=== PATIENT | female | born 1960 | race Caucasian/White ===

== ENCOUNTER 2020-12-15 11:00 | Outpatient (RCR) | payer OTHER, SELFPAY ==
--- NOTE | 2020-09-27 16:21 | PTOPEVAL ---
PHYSICAL THERAPY EVALUATION AND PLAN OF CARE 09-27-20 Thank you for referring Lakshmi Gooden to [facility].? She is scheduled to be seen for therapy? 3 x/week for 4 weeks. Please review, sign, date and return this plan of care CODY. I agree with and certify that the following plan of care is medically necessary. Referring Physician Date Attending Provider: Dr. Bárbara Mcmlulen Ma *PT Outpatient Evaluation Document 09/27/20 15:00 NYDIA (Rec: 09/27/20 16:21 NYDIA [id number]) Past Medical History Source of Past Medical History Patient Neurological History Hx Migraine Yes: as teenager; not had for 30 years Cardiovascular History Hx Hypercholesterolemia Yes: meds Hx Hypertension Yes: meds Respiratory History Hx Respiratory Disorders No Significant History Gastrointestinal History Hx Gastrointestinal Disorders No Significant History Genitourinary History Hx Genitourinary Disorders No Significant History Musculoskeletal History Hx Musculoskeletal Disorders No Significant History Endocrine History Hx Endocrine Disorders No Significant History HEENT History Hx HEENT Disorders No Significant History Integumentary History Hx Eczema Yes Reproductive History Hx Section Yes: 2x Evaluation Information Problem Diagnosis L UE lymphedema Onset July 2020 Prior Level of Function Activity Level (Last 3 Months) 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 Hand Dominance Right Activity of Daily Living Ability Independent Indoor/Home Mobility Independent Community Mobility Independent Stairs Ability Independent Functional Cognition (Planning, Shopping Independent , Taking Medications) Cooking Yes Cleaning Yes Laundry Yes Shopping Yes Driving Yes Home Setting Living Situation With Spouse Comments Additional Prior Level of Function and child do heavy Comments lifting and cleaning; no restrictions from dr; told to increase activity as tolerated- no limitations; Pain Assessment Timing of Pain Assessment Timing of Pain Assessment Assessment Pain Scale Pain Scale Used Numeric (1 - 10) Self Report Pain Assessment Left Shoulder(s) Reported Pain Level 2 Pain Description Tightness,Tingling Radicular Pain Location muscle spasms throughout torso - stopped about one month ago; Pain Frequency
--- NOTE | 2020-10-08 07:58 | PCPTNOTE ---
Pt called and cancelled for today's appt. Called pt to check on her. Adilene stated she is pretty sure he has covid. she is has a headache and feels she has a cold. they both were tested yesterday . Sunday's appt was also cancelled due to holiday and not having anyway to get her results . Instructed pt to take off her wraps and try to perform self MLD if she is able. We will resume therapy when she gets her results.
--- NOTE | 2020-10-15 11:46 | PCPTNOTE ---
Called pt to check on her condition. pt stated that she was feeling better and will probably be able to attend Sunday's treatment.
--- NOTE | 2020-10-25 09:59 | PTOPEVAL ---
PHYSICAL THERAPY REEVALUATION AND UPDATED PLAN OF CARE 10-25-20 Refer to the clinical summary below, for her status with today's reassessment, compared to the initial evaluation. Treatment is to continue 3x/week for 3 weeks, for her to receive and be instructed on the compression sleeve and glove and further decrease of lymphedema over lateral and anterior trunk. Thank you for referring Lakshmi Gooden to [facility].? Please review, sign, date and return this updated plan of care [facility]. I agree with and certify that the following plan of care is medically necessary. Referring Physician Date Attending Provider: Dr. Bárbara Mcmullen Ma Document 10/25/20 09:13 NYDIA (Rec: 10/25/20 09:59 NYDIA [id number]) Assessment Status Re-evaluation Subjective Information Adilene reports: arm is good, Query Text:As Reported By Patient/ pleased with therapy; have Family been moving my arm and shoulder; stomach is not as bloated; some tightness over L scar and tight at times; awaiting garment; have home compression pump; Pain Assessment Timing of Pain Assessment Timing of Pain Assessment Assessment Pain Scale Pain Scale Used Numeric (1 - 10) Self Report Pain Assessment Left Shoulder(s) Reported Pain Level 2 Pain Frequency Chronic Other Pain Description stiff, sore Lowest Pain Intensity 0 Greatest Pain Intensity 3 Pain Score Pain Score 2: Self Report Additional Pain Score Comments can lie on L side about 1 hour ; Interventions Used Interventions Used By Clinicians Education,Exercise Upper Extremity Range of Motion Scapular/ Shoulder Range of Motion Left Shoulder Flexion - Active 110 Shoulder Abduction - Active 105 Shoulder Lateral Rotation - Active palm behind ear Query Text:Reach Behind the Head Upper Extremity Muscle Strength Testing General Upper Extremity Strength Gross Upper Extremity Strength Comments standing L shoulder with 2# hand wt: flexion x 15 reps; abduction x 10 reps Lymphedema Evaluation Skin Inspection Location Left Upper Extremity,Left Anterior Lower Quadrant,Left Anterior Upper Quadrant,Right Anterior Lower Quadrant,Right Anterior Upper Quadrant Skin Observations Hyperpigmentation,Hyperplasia Tissue Texture Hard Lymphedema Stage II Skin Inspection Comment R axilla pocket of fluid measured in supine: superior/ inf 6 cm and med/lat 5 cm; L UE: no fibrosis over
--- NOTE | 2020-11-03 14:10 | PCPTNOTE ---
Called pt to see if she could come in early and pt sted she had been throwing up all night and had diahrrea. Pt cancelled appt today.
--- NOTE | 2020-11-10 16:18 | PTOPEVAL ---
PHYSICAL THERAPY RE-EVALUATION AND UPDATED PLAN OF CARE 11-10-20 Refer to the clinical summary below for her status at today's reevaluation, compared to the last reeval. Her progress was minimal this time frame, due to being ill and did not have treatment or the compression wraps on her arm for 1 & 1/2 weeks. Continue PT 2-3x/week for 3 weeks. Thank you for referring Lakshmi Gooden to [facility].? Please review, sign, date and return this plan of care CODY. I agree with and certify that the following plan of care is medically necessary. Referring Physician Date Attending Provider: Bárbara Aguila MD Document 11/10/20 13:39 NYDIA (Rec: 11/10/20 14:11 NYDIA [id number]) Assessment Status Re-evaluation Subjective Information Lakshmi reports: arm is doing Query Text:As Reported By Patient/ OK with the wraps; is using Family arm more for home tasks; is pleased that her arm is smaller; has Flexitouch pump at home, they are going to do a demo and educate her when wraps removed from arm; has ordered her compression sleeve , but not here yet; wants to continue PT for her scars and tight tissue; Pain Assessment Timing of Pain Assessment Timing of Pain Assessment Assessment Pain Scale Pain Scale Used Numeric (1 - 10) Self Report Pain Assessment Left Shoulder(s) Reported Pain Level 0 Pain Frequency Acute Other Pain Description heavy arm Lowest Pain Intensity 0 Greatest Pain Intensity 2 Pain Score Pain Score 0: Self Report Upper Extremity Range of Motion General Upper Extremity Range of Motion Gross Upper Extremity Range of Motion L shoulder in standing: Comments flexion 120', abduct 115', ER -reach to back of head, palm to behind ear Upper Extremity Muscle Strength Testing General Upper Extremity Strength Gross Upper Extremity Strength Comments standing R shoulder flexion and abduction with 3# hand wt x 10 reps; Lymphedema Evaluation Skin Inspection Location Left Upper Extremity,Left Anterior Lower Quadrant,Left Anterior Upper Quadrant,Right Anterior Lower Quadrant,Right Anterior Upper Quadrant Tissue Texture Hard Lymphedema Stage II Skin Inspection Comment removed compression wraps L UE ; measured arm and pt washed
--- NOTE | 2020-12-01 13:35 | PTOPEVAL ---
PHYSICAL THERAPY RE-EVALUATION AND UPDATED PLAN OF CARE 12-01-20 Refer to the clinical summary below, for her status today, compared to the last reevaluation. Continue PT treatment 1x/week for 5 weeks. Thank you for referring Lakshmi Gooden to [facility].? Please review, sign, date and return this updated plan of care [facility]. I agree with and certify that the following plan of care is medically necessary. Referring Physician Date Attending Provider: Bárbara Aguila MD *PT Outpatient Re-Evaluation Document 12/01/20 12:36 NYDIA (Rec: 12/01/20 13:35 NYDIA [id number]) Subjective Information Adilene reports: feel like L arm Query Text:As Reported By Patient/ is not as strong yet, still Family lacking strength; have been doing home exercises and self massage; sleeve and glove are good; Pain Assessment Timing of Pain Assessment Timing of Pain Assessment Assessment Pain Scale Pain Scale Used Numeric (1 - 10) Self Report Pain Assessment Left Shoulder(s) Reported Pain Level 0 Pain Description Tightness Pain Frequency Chronic,Intermittent Other Pain Description stiff in shoulder; Pain Score Pain Score 0: Self Report Additional Pain Score Comments report able to lie on L side about 1 hour; Upper Extremity Range of Motion Scapular/ Shoulder Range of Motion Left Shoulder Flexion - Active 120 Shoulder Abduction - Active 120 Shoulder Lateral Rotation - Active palm to behind ear Query Text:Reach Behind the Head Upper Extremity Muscle Strength Testing General Upper Extremity Strength Gross Upper Extremity Strength Comments standing L shoulder: with 2# hand wt: flexion to 120' x 20 reps; abduction to 120' x 10 reps; Lymphedema Evaluation Skin Inspection Location Left Upper Extremity,Left Anterior Lower Quadrant,Left Anterior Upper Quadrant,Right Anterior Lower Quadrant,Right Anterior Upper Quadrant Skin Observations Hyperpigmentation,Hyperplasia Tissue Texture Hard Lymphedema Stage II Skin Inspection Comment L UE: soft tissue over arm, without any firmness of tissue ; R trunk: fluid accumulation over lateral upper trunk, measure 9 cm sup/inferior and 8 cm lateral measurement; no tenderness reported; minimal
--- NOTE | 2020-12-01 15:53 | PCPTNOTE ---
faxed request to [employer] for another compression sleeve and glove for pt and for a new Bellisse Bra- band 38 cup A/B; With note for [employer] to check her insurance for coverage of the garments.
--- NOTE | 2020-12-15 14:04 | PCPTNOTE ---
pt appt last week canceled due to therapist illness;
--- NOTE | 2020-12-23 08:53 | PCPTNOTE ---
This treatment is being continued on visit number [id number]. Please see documentation on both accounts to view progress. Completed interventions, outcomes, and problems have been marked as Inactive to facilitate the copying of the Care plan routine for recurring accounts.
== END 2020-12-23 08:38 | disposition home or self-care (01) ==
LOC: ANHPT 11:00
PROVIDERS: PCP Internal Medicine
DX: C50.812 Malignant neoplasm of overlapping sites of left female breast (principal); Z17.1 Estrogen receptor negative status [ER-]
CPT/HCPCS: 29581; 97016; 97110; 97140; 97162

== ENCOUNTER 2021-01-05 15:39 | Outpatient (RCR) | payer OTHER, SELFPAY ==
--- NOTE | 2020-12-23 08:56 | PCPTNOTE ---
This treatment is continued from visit number [id number]. Please see documentation on both accounts to view progress. Completed interventions, outcomes, and problems have been marked as Inactive to facilitate the copying of the Care plan routine for recurring accounts.
--- NOTE | 2021-01-05 16:28 | PTOPEVAL ---
PHYSICAL THERAPY DISCHARGE 01-05-21 Refer to the clinical summary below for her status today, compared to the last reeval. Adilene has made great progress and all of the goals were achieved. PT is discharged at this time. Thank you for referring Lakshmi Gooden to [facility].? Please review, sign, date and return this Discharge CODY. I agree with and certify that the following plan of care is medically necessary. Referring Physician Date Attending Provider: Bárbara Aguila MD Document 01/05/21 15:38 NYDIA (Rec: 01/05/21 16:28 NYDIA [id number]) Assessment Status Discharge Subjective Information Lakshmi reports: doing OK with Query Text:As Reported By Patient/ exercises, compression sleeve Family and glove; shoulder is moving better; compression bra is good, but tight; agrees to discharge from PT services. plans to have reconstructive surgery in March. Pain Assessment Timing of Pain Assessment Timing of Pain Assessment Assessment Pain Scale Pain Scale Used Numeric (1 - 10) Self Report Pain Assessment Bilateral Flank Reported Pain Level 0 Pain Description Soreness Pain Frequency Chronic,Intermittent Lowest Pain Intensity 0 Greatest Pain Intensity 2 Other Pain Aggravating Factors lie on L side 30-60 min then increase pain trunk Pain Score Pain Score 0: Self Report Interventions Used Interventions Used By Clinicians Education Upper Extremity Range of Motion General Upper Extremity Range of Motion Gross Upper Extremity Range of Motion standing L shoulder flexion Comments 135', ER- reach to back of head; tight over pec, no pain; reviewed shoulder HEP; reinforced pec stretch with supine arm at side and ER stretch with hands behind head ; Lymphedema Evaluation Skin Inspection Location Left Upper Extremity,Left Anterior Lower Quadrant,Left Anterior Upper Quadrant,Left Posterior Lower Quadrant,Left Posterior Upper Quadrant,Right Upper Extremity,Right Anterior Lower Quadrant,Right Anterior Upper Quadrant,Right Posterior Lower Quadrant,Right Posterior Upper Quadrant Skin Observations Hyperplasia,Radiation Disc
== END 2021-01-06 10:36 | disposition home or self-care (01) ==
LOC: ANHPT 15:39
PROVIDERS: PCP Internal Medicine
DX: I89.0 Lymphedema, not elsewhere classified (principal); C50.812 Malignant neoplasm of overlapping sites of left female breast; Z17.1 Estrogen receptor negative status [ER-]
CPT/HCPCS: 97110; 97140

== ENCOUNTER 2021-05-05 08:00 | Outpatient (RCR) | payer OTHER, SELFPAY ==
--- NOTE | 2021-04-12 09:10 | PTOPEVAL ---
PHYSICAL THERAPY EVALUATION AND PLAN OF CARE 04-12-21 Thank you for referring Lakshmi Gooden to [facility].? She is scheduled to be seen for therapy? 2-3 x/week for 4 weeks. Please review, sign, date and return this plan of care CODY. I agree with and certify that the following plan of care is medically necessary. Referring Physician Date Attending Provider: Sivakumar Sinclair MD *PT Outpatient Evaluation Document 04/12/21 08:00 NYDIA (Rec: 04/12/21 09:10 NYDIA [id number]) Outpatient Past Medical History Past Medical History Source of Past Medical History Recalled from Previous Visit, Confirmed with Patient/Family Neurological History Hx Migraine Yes: as teenager; not had for 30 years Cardiovascular History Hx Hypercholesterolemia Yes: meds Hx Hypertension Yes: meds Respiratory History Hx Respiratory Disorders No Significant History Gastrointestinal History Hx Gastrointestinal Disorders No Significant History Genitourinary History Hx Genitourinary Disorders No Significant History Musculoskeletal History Hx Musculoskeletal Disorders No Significant History Endocrine History Hx Endocrine Disorders No Significant History HEENT History Hx Other HEENT Disorders Yes: having floaters in R eye- to see dr next week Integumentary History Hx Eczema Yes Reproductive History Hx Section Yes: 2x Evaluation Information Problem Diagnosis lymphedema L UE Onset Mar 17, 2021 Prior Level of Function Activity Level (Last 3 Months) 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 Activity of Daily Living Ability Independent Indoor/Home Mobility Independent Community Mobility Independent Stairs Ability Independent Functional Cognition (Planning, Shopping Independent , Taking Medications) Cooking Yes Cleaning Yes Laundry Yes Shopping Yes Driving Yes Home Setting Home Type House Living Situation With Spouse Mobility Assistive Devices (Used Last 3 None Months) Comments Additional Prior Level of Function return to work Sunday; in 2 Comments days, no restrictions per dr, will be 4 weeks post op; indep with all light home and self care tasks Pain Assessment Timing of Pain Assessment Timing of Pain Assessment Assessment Pain Scale Pain Scale Used Numeric (1 - 10) Self Report Pain Assess
--- NOTE | 2021-05-05 08:47 | PTOPEVAL ---
PHYSICAL THERAPY DISCHARGE 05-05-21 Refer to the clinical summary below, for her status today, compared to the initial evaluation. The goals were partially achieved. Discharge PT services. She is to continue with her home exercises and lymphedema self care. Thank you for referring Lakshmi Gooden to [facility].? Please review, sign, date and return this Discharge CODY. I agree with and certify that the following plan of care is medically necessary. Referring Physician Date Attending Provider: Sivakumar Sinclair MD Document 05/05/21 08:00 NYDIA (Rec: 05/05/21 08:47 NYDIA [id number]) Assessment Status Discharge Cardiovascular History Subjective Information Lakshmi reports: she is better Query Text:As Reported By Patient/ since started therapy---moving Family better, doing self massage and shoulder exercises; using L arm to do almost everything ; is able to do all her chores and work activities; feel like ready to be discharged from PT care. Pain Assessment Timing of Pain Assessment Timing of Pain Assessment Assessment Pain Scale Pain Scale Used Numeric (1 - 10) Self Report Pain Assessment Left Shoulder(s) Reported Pain Level 0 Pain Frequency Chronic,Intermittent Other Pain Description little twitches of pain L lateral trunk&over R anterior- lower abdomen pull Lowest Pain Intensity 0 Greatest Pain Intensity 2 Pain Score Pain Score 0: Self Report Interventions Used Interventions Used By Clinicians Education,Exercise Upper Extremity Range of Motion Scapular/ Shoulder Range of Motion Left Shoulder Flexion - Active 125 Shoulder Abduction - Active 125 Shoulder Medial Rotation - Active thumb to lower scapula Query Text:Reach Behind the Back Shoulder Lateral Rotation - Active reach to back of head with Query Text:Reach Behind the Head palm Lymphedema Evaluation Skin Inspection Skin Inspection Comment in standing: visible inspection: - posterior view- slight edema over upper lateral trunk /lateral scapula -anterior view- inferior to clavicle/ minimal edema, compared to R side; R breast more inferior and lateral compared to L breast; -anterior view, with R shoulder abduction to 90'- minimal edema over lateral axilla
== END 2021-06-27 13:08 | disposition home or self-care (01) ==
LOC: ANHPT 08:00
PROVIDERS: PCP Internal Medicine
DX: I89.0 Lymphedema, not elsewhere classified (principal)
CPT/HCPCS: 29581; 97110; 97140; 97161

== ENCOUNTER 2021-09-26 08:00 | Outpatient (RCR) | payer OTHER, SELFPAY ==
[2021-08-17 09:00] VITALS: BP_SYST 140; BP_SYST 155
--- NOTE | 2021-08-17 10:43 | PTOPEVAL ---
PHYSICAL THERAPY EVALUATION AND PLAN OF CARE 08-17-21 Thank you for referring Lakshmi Gooden to [facility] for the diagnosis of lymphedema. Lakshmi is scheduled to be seen for therapy? 2 x/week for 6 weeks. Please review, sign, date and return this plan of care C[facility]. I agree with and certify that the following plan of care is medically necessary. Referring Physician Date Attending Provider: Josie Garcia NP Past Medical History Source of Past Medical History Recalled from Previous Visit, Confirmed with Patient/Family Neurological History Hx Migraine Yes: as teenager; not had for 30 years Cardiovascular History Hx Hypercholesterolemia Yes: meds Hx Hypertension Yes: meds Respiratory History Hx Respiratory Disorders No Significant History Gastrointestinal History Hx Gastrointestinal Disorders No Significant History Genitourinary History Hx Genitourinary Disorders No Significant History Musculoskeletal History Hx Musculoskeletal Disorders No Significant History Endocrine History Hx Endocrine Disorders No Significant History HEENT History Hx Other HEENT Disorders Yes: floaters in R eye-- following with eye dr Integumentary History Hx Eczema Yes Reproductive History Hx Section Yes: 2x Evaluation Information Problem Diagnosis lymphedema Onset July 22, 2021 Prior Level of Function Activity Level (Last 3 Months) 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 Activity of Daily Living Ability Independent Indoor/Home Mobility Independent Community Mobility Independent Stairs Ability Independent Functional Cognition (Planning, Shopping Independent , Taking Medications) Cooking Yes Laundry Yes Shopping Yes Driving Yes Home Setting Living Situation With Spouse Support Available Local Family Support Comments Additional Prior Level of Function doing light home tasks-- NO Comments vaccuming or heavy cleaning/ repetitive tasks; assists with home tasks and does grocery shopping; is working half days, to return to full days next week; per pt--no longer have any restrictions from dr--was told to increase activity as tolerated Pain Assessment Timing of Pain Assessment Timing of Pain Assessme
--- NOTE | 2021-09-26 08:51 | PTOPEVAL ---
PHYSICAL THERAPY DISCHARGE REPORT 09-26-21 Refer to the clinical summary below, for her status today, compared to the initial evaluation. Discharge PT services; the goals were partially met. Thank you for referring Lakshmi Gooden to [facility].? Please review, sign, date and return this Discharge report CODY. I agree with and certify that the following plan of care is medically necessary. Referring Physician Date Attending Provider:Sivakumar Sinclair MD Subjective Information Lakshmi reports: feeling good Query Text:As Reported By Patient/ today, last week had some Family swelling with the heat and humidity; no problems with the bra, sleeve or glove; no pain in arm or trunk; doing all exercises and have the ball now for those exercises at home; feel like ready to be done with therapy; Pain Assessment Self Report Self Report Pain Level 0 Pain Score Pain Score 0: Self Report Gross Upper Extremity Range of Motion L shoulder active ROM in Comments standing: flexion and abduction 140' ER palm to back of head; no pain reported but start to get cramp on R posterior lower rib area Gross Upper Extremity Strength Comments functional strength testing R shoulder: R shoulder: flexion with 4# hand wt x 12 reps and abduction with 4# hand wt x 15 reps L shoulder: flexion with 3# hand wt x 15 reps and abduction with 3# hand wt x 15 reps; -------- verbal review of HEP: has theraband and exercise ball to continue with strengthening Skin Inspection Lymphedema Stage I Skin Inspection Comment L arm: minimal firmness/ thickness of tissue over anterior forearm; good skin color standing: -circumferential measurement of abdomen: at umbilicus 96 cm and along horizontal scar 94 cm; - anterior view: edema over R
== END 2021-09-26 15:49 | disposition home or self-care (01) ==
LOC: ANHPT 08:00
PROVIDERS: PCP Internal Medicine
DX: I97.2 Postmastectomy lymphedema syndrome (principal); Z85.3 Personal history of malignant neoplasm of breast
CPT/HCPCS: 97110; 97112; 97140; 97162

== ENCOUNTER 2022-02-10 08:43 | Outpatient (CLI) | payer OTHER, SELFPAY ==
[2022-02-10 21:09] LABS: Cholesterol 180 mg/dL (0-200); HDL Direct 38 mg/dL; Triglycerides 194 mg/dL (<150)
[2022-02-10 21:20] LABS: LDL Cholesterol Direct 104 mg/dL
== END 2022-02-10 08:44 | disposition home or self-care (01) ==
LOC: ANHGOSHLAB 08:44
PROVIDERS: PCP Family Medicine; Visit Provider Family Medicine
DX: E78.2 Mixed hyperlipidemia (principal)
CPT/HCPCS: 36415; 80061

== ENCOUNTER → 2022-10-30 11:41 | Outpatient (CLI) | payer OTHER, SELFPAY ==
--- NOTE | ~2022-10-30 | XR_ITS ---
Left Hand Technique: PA, oblique, and lateral views were obtained. Clinical History: Thumb pain Findings: No acute fracture or dislocation is seen. Osseous alignment is anatomic. Joint spaces are p reserved. Soft tissues are unremarkable. Impression: Unremarkable left hand. Reviewed, dictated and finalized at location M. Impression: Unremarkable left hand.
== END ==
PROVIDERS: PCP Family Medicine; Visit Provider Family Medicine
DX: S63.602A Unspecified sprain of left thumb, initial encounter (principal); X58.XXXA Exposure to other specified factors, initial encounter
CPT/HCPCS: 73130

== ENCOUNTER 2023-03-09 09:35 | Outpatient (CLI) | payer OTHER, SELFPAY ==
[2023-03-09 12:01] LABS: Alanine Aminotransferase 30 U/L (6-35); Albumin Level 4.6 g/dL (3.5-5.1); Alkaline Phosphatase 72 U/L (38-126); Anion Gap 9 mmol/L (8-16); Aspartate Amino Transferase 79 U/L (14-36); Blood Urea Nitrogen 11 mg/dL (7-17); Calcium 9.8 mg/dL (8.4-10.2); Carbon Dioxide 25 mmol/L (22-30); Chloride 104 mmol/L (98-107); Cholesterol 161 mg/dL (0-200); Estimated Glomerular Filt Rate > 60; Glucose 98 mg/dL (65-110); HDL Direct 37 mg/dL; Potassium 3.9 mmol/L (3.4-5.0); Sodium 138 mmol/L (137-145); Triglycerides 160 mg/dL (<150)
[2023-03-09 12:13] LABS: LDL Cholesterol Direct 88 mg/dL
[2023-03-09 18:01] LABS: Vitamin D 25 Hydroxy 49.6 ng/mL
== END 2023-03-09 09:36 | disposition home or self-care (01) ==
LOC: ANHGOSHLAB 09:36
PROVIDERS: PCP Family Medicine; Visit Provider Family Medicine
DX: Z13.228 Encounter for screening for other metabolic disorders (principal); E55.9 Vitamin D deficiency, unspecified; Z13.29 Encounter for screening for other suspected endocrine disorder; E78.2 Mixed hyperlipidemia
CPT/HCPCS: 36415; 80053; 80061; 82306; 84443

== ENCOUNTER 2024-06-25 08:13 | Outpatient (CLI) | payer BC, SELFPAY ==
--- OUTSIDE RECORDS SUMMARY | 2024-06-25 08:28 | XMS_ITS | Referral Summary ---
Author Organization [facility] Address [address] [place] [id number] Care Team Providers Care Software Engineering Analyst Name Role Phone Onofre Fay MD Unavailable [phone] Tyesha Helms MD PhD Unavailable [phone] Ayla, Bárbara Mcmullen MD PhD Unavailable Marie Kaiser MD PhD Unavaila ble Loyda Andujar DO Primary Care Provider [phone] Encounters Date Type Department Care Team Description 06/20/2024 10:15 AM CLOTH DYEING RANGE TENDER Lab [facility] - Lab Collection [address] [place] [address] Floor 5 [place] [address] Malignant neoplasm of overlapping sites of left breast in female, estrogen receptor negative (HCC); Encounter for screening mammogram for malignant neoplasm of breast 06/20/2024 9:00 AM CLOTH DYEING RANGE TENDER Office Visit [facility] Oncology [address] [place] [address] 8 [place] [address] Linn Fierro NP Lung nodule (Primary Dx); Malignant neoplasm of overlapping sites of left breast in female, estrogen receptor negative (HCC); Lymphedema of left arm; History of bilateral mastectomy; Tobacco use; Encounter for screening mammogram for malignant neoplasm of breast 06/05/2024 9:30 AM CLOTH DYEING RANGE TENDER Office Visit [facility] Surgery [address] [place] [address] Floor 8 [place] [address] Bel Daley, JOSE DE JESUS Encounter for follow-up surveillance of breast cancer (Primary Dx); History of left breast cancer; History of bilateral mastectomy; Lymphedema of arm from Last 3 Months Allergies Active Allergy Reactions Criticality Noted Date Comments Amoxicillin Seizures High Chlorhexidine Rash Medium 05/28/2019 Penicillins Hallucinations,Seizu res,O ther (See comments) High 04/22/2011 No sure pt hasnt had since age 4; severe, immediate or delayed reaction, PCN allergy form completed, sever risk Venom-Wasp Anaphylaxis High 02/12/2015 Medications atenolol-chlort halidone (TENORETIC) 50-25 mg per tabletIndicatio ns:hypertension Take 0.5 tablets by mouth every other day 04/06/2019 Active gemfibrozil (LOPID) 600 mg tabletIndicatio ns:hypertriglyc eridemia Take 1 tablet (600 mg total) by mouth daily with dinner 04/06/2019 Active lovastatin (MEVACOR) 10 mg tabletIndicatio ns:hyperlipidem ia Take 1 tablet (10 mg total) by mouth nightly 3 03/27/2019 Active multivitamin tabletIndicatio ns:Vitamin Deficiency Take 1 tablet by mouth nightly Active docosahexaenoic acid/epa (FISH OIL ORAL)Indication s:supplement Take 2 tablets by mouth nightly Active vitamin b complex tabletIndicatio ns:Vitamin Deficiency Prevention Take 1 tablet by mouth nightly Active cholecalciferol (VITAMIN D-3) 400 unit capsuleIndicati ons:SUPPLEMENT Take 5 tablet/capsu le (2,000 Units total) by mouth nightly Active citalopram (CeleXA) 20 mg tablet Take 1 tablet (20 mg total) by mouth daily Active Active Problems Problem Noted Date Diagnosed Date Lymphedema of left arm 06/16/2022 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 Overview (01/30/2022): Added automatically from request for surgery [id number] History of bilateral mastectomy 05/23/2021 History of left breast cancer 09/20/2020 Overview (09/20/2020): Added automatically from request for surgery [id number] Encounter for follow-up exam ination after completed treatment for malignant neoplasm 03/04/2020 Personal history of irradiation 03/04/2020 Eczema 11/13/2019 Persons encountering health services in other specified circumstances 05/05/2019 Malignant neoplasm of overla pping sites of left breast in female, estrogen receptor negative 05/02/2019 Cancer Staging:Clinical:Stage IIIB(cT4d, cN3c, cM0, G3, ER-, RI-, HER2+) - Signed by Tyesha Helms MD PhD on 12/17/2019 Neoplastic disease 02/06/2019 Overview (09/18/2023): Neoplasm of unsp behavior of bone, soft tissue, and skin;Recorded Elsewhere: No Location: [facility] Source: EHR Chronic: N Practice ID: [id number] Billable Time: 10:30:00 AM Abdominal bloating 03/03/2016 Overview (09/18/2023): Bloating;Recorded Elsewhere: No Location: [facility] Source: EHR Chronic: N Practice ID: [id number] Billable Time: 09:00:00 AM Tobacco use 02/12/2015 Resolved Problems Problem Noted Date Diagnosed Date Resolved Date Disorder of breast 02/25/2019 Overview (09/18/2023): Disorder of breast, unspecified;Recorded Elsewhere: No Location: [facility] Source: EHR Chronic: N Practice ID: [id number] Billable Time: 12:17:55 PM Rash 02/17/2019 06/05/2024 Overview (09/18/2023): Rash and other nonspecific skin eruption;Recorded Elsewhere: No Location: [facility] Source: EHR Chronic: N Practice ID: [id number] Billable Time: 10:30:00 AM Abnormal mammogram 02/10/2015 0 Mechanical complication of i ntrauterine contraceptive device 02/03/2015 06/05/2024 Overview (09/18/2023): MALFUNCTION IUD;Recorded Elsewhere: No Location: [facility] Source: EHR Chronic: N Practice ID: [id number] Billable Time: 10:30:00 AM Immunizations Name Administration Dates Next Due Influenza, Quadrivalent, Rec ombinant, Egg Free, Preservative Free, Intramuscular 02/10/2022 Influenza, Quadrivalent, Spl it, Preservative Free, Intramuscular 03/20/2021 Social History Tobacco Use Types Packs/Day Years Used Date Smoking Tobacco: Every Day Cigarettes 0.3 43.7 Started: 1977; Last attempted to quit: 02/10/2021 Passive Smoke Exposure: Current Smokeless Tobacco: Never Tobacco Cessation:Ready to Q uit: Not Asked; Counseling Given: Not Answered Alcohol Use Standard Drinks/Week Comments Yes 0 (1 standard drink = 0.6 oz pur e alcohol) rarely AUDIT-C Answer Date Recorded Q1: How often do you have a drink containing alc ohol? Monthly or less 02/15/2022 Q2: How many drinks containi ng alcohol do you have on a typical day when you are drinking? 1 or 2 02/15/2022 Q3: How often do you have si x or more drinks on one occasion? Never 02/15/2022 Comments No Sex and Gender Information Value Date Recorded Sex Assigned at Not on file Legal Sex Female 9:01 AM CLOTH DYEING RANGE TENDER Gender Identity Female 01/23/2021 2:16 PM CDT Sexual Orientation Straight 01/23/2021 2: 16 PM CDT Last Filed Vital Signs Vital Sign Reading Time Taken Comments Blood Pressure 151/77 06/20/2024 9:05 AM CLOTH DYEING RANGE TENDER Pulse 64 06/20/2024 9:05 AM CLOTH DYEING RANGE TENDER Temperature 36.8 C (98.2 F) 06/20/2024 9:05 AM CLOTH DYEING RANGE TENDER Respiratory Rate 18 06/20/2024 9:05 AM CLOTH DYEING RANGE TENDER Oxygen Saturation 94% 06/20/2024 9:05 AM CLOTH DYEING RANGE TENDER Inhaled Oxygen Concentration - - Weight 82.2 kg (181 lb 3.2 oz) 06/20/2024 9:05 A M CLOTH DYEING RANGE TENDER Height 163 cm (5' 4.17 ) 06/05/2024 9:15 AM CLOTH DYEING RANGE TENDER Body Mass Index 30.94 06/05/2024 9:15 AM CLOTH DYEING RANGE TENDER Plan of Treatment Not on file Medical Devices Implanted Type Area Metal Gauge Maker Device Identifier Shelf Expiration Date Model / Serial / Lot Xenoportntra Inc Allox2-[id number] Allox2 15x13.8cm Texture Integrate Port Breast P6.4-7.9cm Full - [id number] Implanted:Qty: 1 on 10/30/2019 by Sivakumar Sinclair MD at [facility] Breast Right: Breast Sientra Inc 09/10/2024 ALLOX2-FH1 5E / / Sientra Inc Allox2-[id number] Allox2 15x13.8cm Texture Integrate Port Breast P6.4-7.9cm Full - [id number] Implanted:Qty: 1 on 10/30/2019 by Sivakumar Sinclair MD at [facility] Breast Left: Breast Sient[employer] Inc 09/10/2024 ALLOX2-FH1 5E / / Ethicon Endo Surgery Umm3 Ultrapro 6x6in Partial Absorbable Lightweight Flat Mesh Surgical - [id number] Implanted:Qty: 1 on 03/17/2021 by Sivakumar Sinclair MD at [facility] Mesh Abdomen Ethicon Endo Surgery [id number] 09/10/2025 [id number] / / [id number] Allergan Usa [employer] [id number] Alloderm Select [id number] Allograft Regenerative Freeze Dried - [id number] - [id number] Implanted:Qty: 1 on 10/30/2019 by Sivakumar Sinclair MD at [facility] Right: Breast [employer] 09/10/2020 [id number] / [id number] / Allergan Usa [employer] [id number] Alloderm Select [id number] Allograft Regenerative Freeze Dried - [id number] - [id number] Implanted:Qty: 1 on 10/30/2019 by Sivakumar Sinclair MD at [facility] Left: Breast [employer] 09/10/2020 [id number] / [id number] / Easy Solutions Allian [id number] [place] Microvascular Anastomoses 1.5mm Rheumatologist Anastomosis Sterile - [id number] Implanted:Qty: 1 on 03/17/2021 by Sivakumar Sinclair MD at [facility] Left: Axilla [employer] Allian [id number] 06/24/2025 [id number] / / [id number] [employer] Allian [id number] [place] Microvascular Anastomoses 1mm Rheumatologist Anastomosis Sterile - [id number] Implanted:Qty: 1 on 03/17/2021 by Sivakumar Sinclair MD at [facility] Left: Axilla [employer] Allian [id number] 03/17/2025 [id number] / / [id number] [employer] Allian [id number] [place] Microvascular 3.5mm Ring Pin Protective Cover Jaw Assembly Latex Free - [id number] Implanted:Qty: 1 on 03/17/2021 by Sivakumar Sinclair MD at [facility] Right: Abdomen [employer] Allian [id number] 09/02/2025 [id number] / / [id number] Description:Right Breast Lef t Flap [employer] Allian 2753 [place] 2.5mm Ring Pin Ultrasonic Doppler 20mhz Rheumatologist Anastomosis Latex Free - [id number] Implanted:Qty: 1 on 03/17/2021 by Sivakumar Sinclair MD at [facility] [employer] Allian [id number] 08/10/2025 [id number] / / [id number] Explanted Type Area Metal Gauge Maker Device Identifier Shelf Expiration Date Model / Serial / Lot Bard Peripheral Vascular [id number] Powerport Clearvue Airguard 8fr 1 Lumen Lightweight Intermediate Latex Free - [id number] Implanted:Qty: 1 on 05/02/2019 by Marie Kaiser MD PhD at [facility] Explanted:Qty: 1 on 05/19/2020 by Marie Kaiser MD PhD at [facility] Right: Chest [employer] Peripheral Vascular 08/11/2020 [id number] / / [id number] Tissue Physician Pediatrician Explanted:Qty: 2 on 12/19/2019 by Sivakumar Sinclair MD at [facility] All[employer] Inc Easy Solutions Allian [id number] [place] Microvascular Anastomoses 4mm Rheumatologist Anastomosis Sterile - [id number] Explanted:Qty: 1 on 03/17/2021 at [facility] Right: Abdomen [employer] Allian [id number] 01/19/2022 [id number] / / [id number] Description:Right Side Left Flap Procedures Procedure Name Priority Date/Time Associated Diagnosis Comments EGFR Routine 06/20/2024 10:20 AM CLOTH DYEING RANGE TENDER Malignant neoplasm of overlapping sites of left breast in female, estrogen receptor negative (HCC) Encounter for screening mammogram for malignant neoplasm of breast DIFFERENTIAL AUTO Routine 06/20/2024 10: 20 AM CLOTH DYEING RANGE TENDER Malignant neoplasm of overlapping sites of left breast in female, estrogen receptor negative (HCC) Encounter for screening mammogram for malignant neoplasm of breast COMPREHENSIVE METABOLIC PANEL Routine 06/20/2024 10:20 AM CLOTH DYEING RANGE TENDER Malignant neoplasm of overlapping sites of left breast in female, estrogen receptor negative (HCC) Encounter for screening mammogram for malignant neoplasm of breast CBC WITH AUTO DIFFERENTIAL Routine 06/20/2024 10:20 AM CLOTH DYEING RANGE TENDER Malignant neoplasm of overlapping sites of left breast in female, estrogen receptor negative (HCC) Encounter for screening mammogram for malignant neoplasm of breast VITAMIN D 25 HYDROXY Routine 06/20/2024 10:20 AM CLOTH DYEING RANGE TENDER Malignant neoplasm of overlapping sites of left breast in female, estrogen receptor negative (HCC) Encounter for screening mammogram for malignant neoplasm of breast from Last 3 Months Results * eGFR (06/20/2024 10:20 AM CLOTH DYEING RANGE TENDER) eGFR >90 >=60 mL/min/1. 73 m2 Comment: Interpretive Data Reference Interval Normal >/= 90 mL/min/1.73m2 Mildly decreased* 60 - 89 mL/min/1.73m2 Mildly to moderately decreased 45 - 59 mL/min/1.73m2 Moderately to severely decreased 30 - 44 mL/min/1.73m2 Severely decreased 15 - 29 mL/min/1.73m2 Kidney Failure < 15 mL/min/1.73m2 *Relative to young adult level Estimated glomerular filtration rate is determined by the 2020 CKD-EPI equation recommended by the National Kidney Foundation (A Unifying Approach to GFR Estimation: Recommendations of the NKF-ASK Task Force on Reassessing the Inclusion of Race in Diagnosing Kidney Disease, JASN 2020). The CKD-EPI equation should not be used for patients with unstable renal function and has not been validated in children and those over 70. Current interpretive data was last reviewed 2021. Blood 06/20/2024 10:2 0 AM CLOTH DYEING RANGE TENDER 06/20/2024 10:25 AM CLOTH DYEING RANGE TENDER us Linn Fierro [facility] LAB BLOOD ORDERABLES Final [facility] lt [facility] Department [place] [address] * Differential, auto (06/20/2024 10:20 AM CLOTH DYEING RANGE TENDER) Neutrophil abs 6.0 1.5 - 6.5 K/cumm Comment:Testing performed by : [facility] [place][Note 2] Heme Lab, [address] [place] [phone] Lymphocyte abs 2.9 0.8 - 3.3 K/cumm CERNER BJ Comment:Testing performed by : [facility] [place][Note 2] Heme Lab, [address] [place] [phone] Monocyte abs 0.6 0.2 - 0.8 K/cumm CERNER BJ Comment:Testing performed by : [facility] [place][Note 2] Heme Lab, [address] [place] [phone] Eosinophil abs 0.2 0.0 - 0.5 K/cumm CERNER BJ Comment:Testing performed by : [facility] [place][Note 2] Heme Lab, [address] [place] [phone] Basophil abs 0.1 0.0 - 0.1 K/cumm CERNER BJ Comment:Testing performed by : [facility] [place][Note 2] Heme Lab, [address] [place] [phone] Neutrophil pct 61.5 % CERNER BJ Comment: Interpretive Data Percent cell count reference ranges are not reported, since discordance with absolute values may lead to misinterpretation of CBC data. Current Interpretive Data was last revised on 2017. Testing performed by: [facility] [place][Note 2] Heme Lab, [address] [place] [phone] Lymphocyte pct 29.7 % VERONICA DRAKE Comment: Interpretive Data Percent cell count reference ranges are not reported, since discordance with absolute values may lead to misinterpretation of CBC data. Current Interpretive Data was last revised on 2017. Testing performed by: [facility] [place][Note 2] Heme Lab, [address] [place] [phone] Monocyte pct 6.1 % VERONICA DRAKE Comment: Interpretive Data Percent cell count reference ranges are not reported, since discordance with absolute values may lead to misinterpretation of CBC data. Current Interpretive Data was last revised on 2017. Testing performed by: [facility] [place][Note 2] Heme Lab, [address] [place] [phone] Eosinophil pct 1.6 % VERONICA DRAKE Comment: Interpretive Data Percent cell count reference ranges are not reported, since discordance with absolute values may lead to misinterpretation of CBC data. Current Interpretive Data was last revised on 2017. Testing performed by: [facility] [place][Note 2] Heme Lab, [address] [place] [phone] Basophil pct 1.1 % VERONICA DRAKE Comment: Interpretive Data Percent cell count reference ranges are not reported, since discordance with absolute values may lead to misinterpretation of CBC data. Current Interpretive Data was last revised on 2017. Testing performed by: [facility] [place][Note 2] Heme Lab, [address] [place] [phone] Blood 06/20/2024 10:2 0 AM CLOTH DYEING RANGE TENDER 06/20/2024 10:20 AM CLOTH DYEING RANGE TENDER us Linn Fierro [employer] LAB BLOOD ORDERABLES Final Resu lt VERONICA YEPEZ [facility] Department [place] [address] * (ABNORMAL) CBC with auto differential (06/20/2024 10:20 AM CLOTH DYEING RANGE TENDER) WBC 9.8 3.8 - 9.9 K/cumm Comment:Testing performed by : [facility] [place][Note 2] Heme Lab, [address] [place], [place] [phone] Hgb 16.2(H) 11.9 - 15.5 g/dL CERNER BJ Comment:Testing performed by : [facility] [place][Note 2] Heme Lab, [address] [place], [place] [phone] Hct 46.0(H) 35.6 - 45.5 % CERNER BJ Comment:Testing performed by : [facility] [place][Note 2] Heme Lab, [address] [place], [place] [phone] Plt 285 150 - 400 K/cumm CERNER BJ Comment:Testing performed by : [facility] [place][Note 2] Heme Lab, [address] [place], [place] [phone] MPV 7.1 6.8 - 10.4 fL CERNER BJ Comment:Testing performed by : [facility] [place][Note 2] Heme Lab, [address] [place], [place] [phone] RBC 4.73 3.90 - 5.20 M/cumm CERNER BJ Comment:Testing performed by : [facility] [place][Note 2] Heme Lab, [address] [place] [address] MCV 97.2(H) 81.3 - 96.4 fL CERNER BJ Comment:Testing performed by : [facility] [place][Note 2] Heme Lab, [address] [place], [place] [phone] MCH 34.2(H) 27.1 - 33.3 pg CERNER BJ Comment:Testing performed by : [facility] [place][Note 2] Heme Lab, [address] [place] [address] MCHC 35.2 32.3 - 35.7 g/dL CERNER BJ Comment:Testing performed by : [facility] [place][Note 2] Heme Lab, [address] [place], [place] [phone] RDW CV 13.0 11.1 - 14.9 % CERNER BJ Comment:Testing performed by : [facility] [place][Note 2] Heme Lab, [address] [place] [address] NRBC abs 0.00 0.00 - 0.01 K/cumm CERNER BJ Comment:Testing performed by : [facility] [place][Note 2] Heme Lab, [address] [place] [phone] Blood 06/20/2024 10:2 0 AM CLOTH DYEING RANGE TENDER 06/20/2024 10:20 AM CLOTH DYEING RANGE TENDER Linn Fierro CUTTER [employer]UM[employer] SHE[employer] LAB BLOOD ORDERABLES Final Resu lt [facility] [place] [address] * Vitamin D 25 hydroxy (06/20/2024 10:20 AM CLOTH DYEING RANGE TENDER) Vitamin D 25-OH 37 30 - 80 ng/mL Blood 06/20/2024 10:2 0 AM CLOTH DYEING RANGE TENDER 06/20/2024 10:25 AM CLOTH DYEING RANGE TENDER Linn Fierro [employer] LAB BLOOD ORDERABLES Final Resu lt Performing Organization Address [facility] Co de Phone Number [facility] [place] [address] * Comprehensive metabolic panel (06/20/2024 10:20 AM CLOTH DYEING RANGE TENDER) Pathologist [facility] Sodium 140 135 - 145 mmol/L Potassium, pl 4.4 3.3 - 4.9 mmol/L [facility] Chloride 103 97 - 110 mmol/L [facility] CO2 29 22 - 32 mmol/L [facility] Anion gap 8 2 - 15 mmol/L [facility] BUN 11 6 - 25 mg/dL [facility] Creatinine 0.75 0.60 - 1.10 mg/dL [facility] Glucose 109 70 - 199 mg/dL [facility] Comment: Interpretive Data Fasting glucose >/= 126 mg/dl is diagnostic for diabetes. Fasting is defined as no caloric intake for at least 8 hours. Fasting glucose between 100 mg/dl to 125 mg/dl is diagnostic of prediabetes. In a patient with classic symptoms of hyperglycemia or hyperglycemic crisis, a random glucose >/= 200 mg/dl is diagnostic for diabetes. In the absence of unequivocal hyperglycemia, results should be confirmed by repeat testing. The classification and Diagnosis of Diabetes Diabetes Care 202; 46: S19-S40. Current interpretive data was last revised 2022. Calcium 10.1 8.5 - 10.3 mg/dL [facility] Bilirubin, total 0.6 0.1 - 1.2 mg/dL [facility] Protein, pl 7.8 6.5 - 8.5 g/dL [facility] Albumin 4.7 3.5 - 5.0 g/dL [facility] Alk phos 93 40 - 130 Units/L [facility] ALT 28 7 - 45 Units/L [facility] AST 35 10 - 45 Units/L [facility] Blood 06/20/2024 10:2 0 AM CLOTH DYEING RANGE TENDER 06/20/2024 10:25 AM CLOTH DYEING RANGE TENDER Linn Fierro CUTTER [employer] SHE[employer] LAB BLOOD ORDERABLES Final Resu lt [facility] Department [place] [address] from Last 3 Months Insurance GENERIC COPAY ASSIST [facility] [place] [employer] CHOICE PL[place] CHOICE [place] Advance Directives For more information, please contact: [phone] * Full Code (Latest Code Status on File) Date Activated Date Inactivated Comments 03/17/2021 8:04 PM 03/20/2021 6:59 PM * Full Code Date Activated Date Inactivated Comments 10/30/2019 1:43 PM 10/31/2019 5:21 PM Care Teams Software Engineering Analyst Relationship Specialty Start Date End Date Loyda Andujar DO [address] [place] [address] PCP - General Family Medicine 06/20/24 Onofre Fay MD [address] [place] [address] Referring Physician Obstetrics and Gynecology 03/14/19 Tyesha Helms MD PhD [address] [place] [address] Radiation Oncologist Radiation Oncology 07/20/19 Bárbara Aguila MD PhD [id number] [place] [address] Medical Oncologist/Keno Writer / Runner Medical Oncology 03/03/20 Marie Kaiser MD PhD [id number] [place] [address] Surgeon Surgical Oncology 03/03/20
--- OUTSIDE RECORDS SUMMARY | 2024-06-25 08:28 | XMS_ITS | Clinical Summary ---
Author Organization [facility] Address [facility] [address] [place] [address] Care Team Providers Care Photographic Platemaker Name Role Phone Onofre Fay MD Unavailable [phone] Tyesha Helms MD PhD Unavailable [phone] Ma, Bárbara Mcmullen MD PhD Unavailable Marie Kaiser MD PhD Unavaila ble Loyda Andujar DO Primary Care Provider Allergies Active Allergy Reactions Criticality Noted Date [...] (01/30/2022): Added automatically from request for surgery [id number] History of bilateral mastectomy 05/23/2021 History of left breast cancer 09/20/2020 Overview (09/20/2020): Added automatically from request for surgery [id number] Encounter for follow-up exam ination after completed treatment for malignant neoplasm 03/04/2020 Personal history of irradiation 03/04/2020 Eczema 11/13/2019 Persons encountering health services in other specified circumstances 05/05/2019 Malignant neoplasm of overla pping sites of left breast in female, estrogen receptor negative 05/02/2019 Cancer Staging:Clinical:Stage IIIB(cT4d, cN3c, cM0, G3, ER-, PA-, HER2+) - Signed by Tyesha Helms MD PhD on 12/17/2019 Neoplastic disease 02/06/2019 Overview (09/18/2023): Neoplasm of unsp behavior of bone, soft tissue, and skin;Recorded Elsewhere: No Location: [facility] Source: EHR Chronic: N Practice ID: [id number] Billable Time: 10:30:00 AM Abdominal bloating 03/03/2016 Overview (09/18/2023): Bloating;Recorded Elsewhere: No Location: [facility] Source: EHR Chronic: N Practice ID: 0001 Billable Time: 09:00:00 AM Tobacco use 02/12/2015 Resolved Problems Problem Noted Date Diagnosed Date Resolved Date Disorder of breast 02/25/2019 5 Overview (09/18/2023): Disorder of breast, unspecified;Recorded Elsewhere: No Location: [facility] Source: EHR Chronic: N Practice ID: [id number] Billable Time: 12:17:55 PM Rash 02/17/2019 06/05/2024 Overview (09/18/2023): Rash and other nonspecific skin eruption;Recorded Elsewhere: No Location: [facility] Source: EHR Chronic: N Practice ID: 0001 Billable Time: 10:30:00 AM Abnormal mammogram 02/10/2015 0 Mechanical complication of i ntrauterine contraceptive device 02/03/2015 06/05/2024 Overview (09/18/2023): MALFUNCTION IUD;Recorded Elsewhere: No Location: [facility] Source: EHR Chronic: N Practice ID: 0001 Billable Time: 10:30:00 AM Encounters Date Type Department Care Team Description 06/20/2024 10:15 AM QUANTITATIVE ANALYST MARKETING Lab [facility] - Lab Collection [address] [place] [address] 5 [place] [address] Malignant neoplasm of overlapping sites of left breast in female, estrogen receptor negative (HCC); Encounter for screening mammogram for malignant neoplasm of breast 06/20/2024 9:00 AM QUANTITATIVE ANALYST MARKETING Office Visit [facility] [address] [place] [phone] Linn Fierro NP Lung nodule (Primary Dx); Malignant neoplasm of overlapping sites of left breast in female, estrogen receptor negative (HCC); Lymphedema of left arm; History of bilateral mastectomy; Tobacco use; Encounter for screening mammogram for malignant neoplasm of breast 06/05/2024 9:30 AM QUANTITATIVE ANALYST MARKETING Office Visit [facility] [address] [place] [address] 8 [place] [address] Bel Daley NP Encounter for follow-up surveillance of breast cancer (Primary Dx); History of left breast cancer; History of bilateral mastectomy; Lymphedema of arm from Last 3 Months Immunizations Name Administration Dates Next Due Influenza, Quadrivalent, Rec ombinant, Egg Free, Preservative Free, Intramuscular 02/10/2022 Influenza, Quadrivalent, Spl it, Preservative Free, Intramuscular 03/20/2021 Surgical History Surgery Date Site/Laterality Comments BREAST BIOPSY 2013, 2015 Right SECTION 1980, 1983 TUBAL LIGATION 05/14/1983 - 05/13/1984 same time as c section BREAST BIOPSY 04/09/2019 Right PORTACATH PLACEMENT 04/13/2019 - 05/13/2019 Right COLONOSCOPY 05/14/2013 - 05/13/2014 PORT REMOVAL 05/19/2020 TISSUE INVESTIGATOR WELFARE REMOVAL 12/13/2019 - 01/12/2020 Bilateral bilateral breast debridement US GUIDED BREAST BIOPSY LYMPH NODE SUPERFICIAL BREAST RELATED 05/14/2018 - 05/13/2019 Left INSERTION OF TISSUE INVESTIGATOR WELFARE AFTER MASTECTOMY 10/13/2019 - 11/11/2019 Bilateral RECONSTRUCTION BREAST W/ TRAM FLAP 03/14/2021 - 04/12/2021 Bilateral FREE FLAP DEEP INFERIOR EPIGASTRIC PERFORATORS with synthetic mesh in abdominal wall BREAST BIOPSY 02/12/2015 Right Medical History Medical History Date Comments Hypertension Breast CA (HCC) Hx of migraines Fatty liver History of chemotherapy started 05/19 and last dose 09/07 PONV (postoperative nausea a nd vomiting) 1980 x1 s/p Hx of radiation therapy started on December 11 and did on December 14 and 2019 Motion sickness Disorder of breast 02/25/2019 Disorder of b reast, unspecified;Recorded Elsewhere: No Location: [facility] Source: EHR Chronic: N Practice ID: [id number] Billable Time: 12:17:55 PM Mechanical complication of intrauterine contraceptive device 02/03/2015 MALFUNCTION IUD;Elijah rded Elsewhere: No Location: [facility] Source: EHR Chronic: N Practice ID: 0001 Billable Time: 10:30:00 AM Family History Medical History Relation Name Comments Coronary artery disease Father Heart attack Father Stroke Father Non-Hodgkin's Lymphoma Maternal Grandmother Throat cancer Mother Family history of malignant neoplasm of larynx - (Added by TW Conv) Lung cancer Mother's Sister Heart disease Sister Anesthesia problems Neg Hx Relation Name Status Comments Daughter 1 Alive Daughter 2 Alive Father Maternal Grandmother Mother Mother's Sister Sister Social History Tobacco Use Types Packs/Day Years [...] on file Legal Sex Female 9:01 AM QUANTITATIVE ANALYST MARKETING Gender Identity Female 01/23/2021 2:16 PM CDT Sexual Orientation Straight 01/23/2021 2: 16 PM CDT Obstetrics History Last Filed Vital Signs Vital Sign Reading Time Taken Comments Blood Pressure 151/77 06/20/2024 9:05 AM QUANTITATIVE ANALYST MARKETING Pulse 64 06/20/2024 9:05 AM QUANTITATIVE ANALYST MARKETING Temperature 36.8 C (98.2 F) 06/20/2024 9:05 AM QUANTITATIVE ANALYST MARKETING Respiratory Rate 18 06/20/2024 9:05 AM QUANTITATIVE ANALYST MARKETING Oxygen Saturation 94% 06/20/2024 9:05 AM QUANTITATIVE ANALYST MARKETING Inhaled Oxygen Concentration - - Weight 82.2 kg (181 lb 3.2 oz) 06/20/2024 9:05 A M QUANTITATIVE ANALYST MARKETING Height 163 cm (5' 4.17 ) 06/05/2024 9:15 AM QUANTITATIVE ANALYST MARKETING Body Mass Index 30.94 06/05/2024 9:15 AM QUANTITATIVE ANALYST MARKETING Plan of Treatment Health Maintenance Due Date Last Done Comments Breast Cancer Screening-Mammogram 1962 Cervical Cancer Screening 1962 Colon Cancer Screening-Colonoscopy 1962 Depression Screening 1962 Hepatitis C Screening 1962 Pneumococcal vaccine <65 (1 of 2 - PCV) 1968 DTaP/Tdap/Td Vaccine (1 - Tdap) 1973 Hepatitis B Screening 1980 Regular Well Visit/Exam 18-64 1980 Zoster Vaccine (1 of 2) 2012 Influenza Vaccine (#1) 2024 02/10/2022, 2020 Medical Devices Implanted Type Area Machine Egg Washer Device Identifier Shelf Expiration Date Model / Serial / Lot Sientra Inc Allox2-Fh15e Allox2 15x13.8cm Texture Integrate Port Breast P6.4-7.9cm Full - [id number] Implanted:Qty: 1 on 10/30/2019 by Sivakumar Sinclair MD at [facility] Breast Right: Breast Sientra Inc 09/10/2024 ALLOX2-FH1 5E / / Sientra Inc Allox2-Fh15e Allox2 15x13.8cm Texture Integrate Port Breast P6.4-7.9cm Full - [id number] Implanted:Qty: 1 on 10/30/2019 by Sivakumar Sinclair MD at [facility] Breast Left: Breast Sientra Inc 09/10/2024 ALLOX2-FH1 5E / / Ethicon Endo Surgery Umm3 Ultrapro 6x6in Partial Absorbable Lightweight Flat Mesh Surgical - [id number] Implanted:Qty: 1 on 03/17/2021 by Sivakumar Sinclair MD at [facility] Mesh Abdomen Ethicon Endo Surgery [id number] 09/10/2025 [id number] / / [id number] Allergan Usa Inc [id number] Alloderm Select [id number] Allograft Regenerative Freeze Dried - [id number] - [id number] Implanted:Qty: 1 on 10/30/2019 by Sivakumar Sinclair MD at [facility] Right: Breast Allergan Usa Inc 09/10/2020 [id number] / [id number] / Allergan Usa Inc [id number] Alloderm Select 25b97ur Allograft Regenerative Freeze Dried - [id number] - [id number] Implanted:Qty: 1 on 10/30/2019 by Sivakumar Sinclair MD at [facility] Left: Breast Allergan [employer] 09/10/2020 [id number] / [id number] / ZoomCare Allian [id number] [place] Microvascular Anastomoses 1.5mm Flask Cleaner Anastomosis Sterile - [id number] Implanted:Qty: 1 on 03/17/2021 by Sivakumar Sinclair MD at [facility] Left: Axilla Synovis Buzzient Allian [id number] 06/24/2025 [id number] / / [id number] Synovis Buzzient Allian [id number] [place] Microvascular Anastomoses 1mm Flask Cleaner Anastomosis Sterile - [id number] Implanted:Qty: 1 on 03/17/2021 by Sivakumar Sinclair MD at [facility] Left: Axilla Synovis Buzzient Allian [id number] 03/17/2025 [id number] / / [id number] Synovis Buzzient Allian [id number] [place] Microvascular 3.5mm Ring Pin Protective Cover Jaw Assembly Latex Free - [id number] Implanted:Qty: 1 on 03/17/2021 by Sivakumar Sinclair MD at [facility] Right: Abdomen Synovis Buzzient Allian [id number] 09/02/2025 [id number] / / [id number] Description:Right Breast Lef t Flap Synovis Buzzient Allian 2753 [place] 2.5mm Ring Pin Ultrasonic Doppler 20mhz Flask Cleaner Anastomosis Latex Free - [id number] Implanted:Qty: 1 on 03/17/2021 by Sivakumar Sinclair MD at [facility] Synovis Buzzient Allian [id number] 08/10/2025 [id number] / / [id number] Explanted Type Area Machine Egg Washer Device Identifier Shelf Expiration Date Model / Serial / Lot Bard Peripheral Vascular [id number] Powerport Clearvue Airguard 8fr 1 Lumen Lightweight Intermediate Latex Free - [id number] Implanted:Qty: 1 on 05/02/2019 by Marie Kaiser MD PhD at [facility] Explanted:Qty: 1 on 05/19/2020 by Marie Kaiser MD PhD at [facility] Right: Chest Bard Peripheral Vascular 08/11/2020 [id number] / / [id number] Tissue Airway Controller Explanted:Qty: 2 on 12/19/2019 by Sivakumar Sinclair MD at [facility] SCVNGR Inc ZoomCare Allian [id number] [place] Microvascular Anastomoses 4mm Flask Cleaner Anastomosis Sterile - [id number] Explanted:Qty: 1 on 03/17/2021 at [facility] Right: Abdomen ZoomCare Allbrandee [id number] 01/19/2022 [id number] / / [id number] Description:Right Side Left Flap Procedures Procedure Name Priority Date/Time Associated Diagnosis Comments EGFR Routine 06/20/2024 10:20 AM QUANTITATIVE ANALYST MARKETING Malignant neoplasm of overlapping sites of left breast in female, estrogen receptor negative (HCC) Encounter for screening mammogram for malignant neoplasm of breast DIFFERENTIAL AUTO Routine 06/20/2024 10: 20 AM QUANTITATIVE ANALYST MARKETING Malignant neoplasm of overlapping sites of left breast in female, estrogen receptor negative (HCC) Encounter for screening mammogram for malignant neoplasm of breast COMPREHENSIVE METABOLIC PANEL Routine 06/20/2024 10:20 AM QUANTITATIVE ANALYST MARKETING Malignant neoplasm of overlapping sites of left breast in female, estrogen receptor negative (HCC) Encounter for screening mammogram for malignant neoplasm of breast CBC WITH AUTO DIFFERENTIAL Routine 06/20/2024 10:20 AM QUANTITATIVE ANALYST MARKETING Malignant neoplasm of overlapping sites of left breast in female, estrogen receptor negative (HCC) Encounter for screening mammogram for malignant neoplasm of breast VITAMIN D 25 HYDROXY Routine 06/20/2024 10:20 AM QUANTITATIVE ANALYST MARKETING Malignant neoplasm of overlapping sites of left breast in female, estrogen receptor negative (HCC) Encounter for screening mammogram for malignant neoplasm of breast from Last 3 Months Results * eGFR (06/20/2024 10:20 AM QUANTITATIVE ANALYST MARKETING) eGFR >90 >=60 mL/min/1. 73 m2 Comment: [...] reviewed 2021. Blood 06/20/2024 10:2 0 AM QUANTITATIVE ANALYST MARKETING 06/20/2024 10:25 AM QUANTITATIVE ANALYST MARKETING us Linn Fierro SUPERVISOR INTERNATIONAL RESERVATIONS LAB BLOOD ORDERABLES Final Resu lt [facility] Department [place] [address] * Differential, auto (06/20/2024 10:20 AM QUANTITATIVE ANALYST MARKETING) Neutrophil abs 6.0 1.5 - 6.5 K/cumm Comment:Testing performed by : [facility], [address] [place] [phone] Lymphocyte abs 2.9 0.8 - 3.3 K/cumm [facility] Comment:Testing performed by : [facility], [address] [place] [phone] Monocyte abs 0.6 0.2 - 0.8 K/cumm [facility] Comment:Testing performed by : [facility], [address] [place] [phone] Eosinophil abs 0.2 0.0 - 0.5 K/cumm [facility] Comment:Testing performed by : [facility], [address] [place] [phone] Basophil abs 0.1 0.0 - 0.1 K/cumm [facility] Comment:Testing performed by : [facility], [address] [place] [phone] Neutrophil pct 61.5 % [facility] Comment: Interpretive Data Percent cell count reference ranges are not reported, since discordance with absolute values may lead to misinterpretation of CBC data. Current Interpretive Data was last revised on 2017. Testing performed by: [facility], [address] [place] [phone] Lymphocyte pct 29.7 % [facility] Comment: Interpretive Data Percent cell count reference ranges are not reported, since discordance with absolute values may lead to misinterpretation of CBC data. Current Interpretive Data was last revised on 2017. Testing performed by: [facility], [address] [place] [phone] Monocyte pct 6.1 % [facility] Comment: Interpretive Data Percent cell count reference ranges are not reported, since discordance with absolute values may lead to misinterpretation of CBC data. Current Interpretive Data was last revised on 2017. Testing performed by: [facility], [address] [place] [phone] Eosinophil pct 1.6 % [facility] Comment: Interpretive Data Percent cell count reference ranges are not reported, since discordance with absolute values may lead to misinterpretation of CBC data. Current Interpretive Data was last revised on 2017. Testing performed by: [facility], [address] [place] [phone] Basophil pct 1.1 % [facility] Comment: Interpretive Data Percent cell count reference ranges are not reported, since discordance with absolute values may lead to misinterpretation of CBC data. Current Interpretive Data was last revised on 2017. Testing performed by: [facility], [address] [place] [phone] Blood 06/20/2024 10:2 0 AM QUANTITATIVE ANALYST MARKETING 06/20/2024 10:20 AM QUANTITATIVE ANALYST MARKETING us Linn Fierro SUPERVISOR INTERNATIONAL RESERVATIONS LAB BLOOD ORDERABLES Final Resu lt [facility] Department [place] [address] * (ABNORMAL) CBC with auto differential (06/20/2024 10:20 AM QUANTITATIVE ANALYST MARKETING) WBC 9.8 3.8 - 9.9 K/cumm Comment:Testing performed by : [facility], [address] [place] [address] Hgb 16.2(H) 11.9 - 15.5 g/dL [facility] Comment:Testing performed by : [facility], [address] [place] [address] Hct 46.0(H) 35.6 - 45.5 % [facility] Comment:Testing performed by : [facility], [address] [place] [address] Plt 285 150 - 400 K/cumm [facility] Comment:Testing performed by : [facility], [address] [place] [address] MPV 7.1 6.8 - 10.4 fL [facility] Comment:Testing performed by : [facility], [address] [place] [address] RBC 4.73 3.90 - 5.20 M/cumm [facility] Comment:Testing performed by : [facility], [address] [place] [address] MCV 97.2(H) 81.3 - 96.4 fL [facility] Comment:Testing performed by : [facility], [address] [place] [address] MCH 34.2(H) 27.1 - 33.3 pg [facility] Comment:Testing performed by : [facility], [address] [place] [address] MCHC 35.2 32.3 - 35.7 g/dL [facility] Comment:Testing performed by : [facility], [address] [place] [address] RDW CV 13.0 11.1 - 14.9 % [facility] Comment:Testing performed by : [facility], [address] [place] [phone] NRBC abs 0.00 0.00 - 0.01 K/cumm [facility] Comment:Testing performed by : [facility], [address] [place] [phone] Blood 06/20/2024 10:2 0 AM QUANTITATIVE ANALYST MARKETING 06/20/2024 10:20 AM QUANTITATIVE ANALYST MARKETING Linn Fierro SUPERVISOR INTERNATIONAL RESERVATIONS LAB BLOOD ORDERABLES Final Resu lt [facility] Department [place] [address] * Vitamin D 25 hydroxy (06/20/2024 10:20 AM QUANTITATIVE ANALYST MARKETING) [facility] Vitamin D 25-OH 37 30 - 80 ng/mL Blood 06/20/2024 10:2 0 AM QUANTITATIVE ANALYST MARKETING 06/20/2024 10:25 AM QUANTITATIVE ANALYST MARKETING Linn Fierro SUPERVISOR INTERNATIONAL RESERVATIONS LAB BLOOD ORDERABLES Final Resu lt Performing Organization Address City/[facility]/ZIP Co de Phone Number [facility] Department [place] [address] * Comprehensive metabolic panel (06/20/2024 10:20 AM QUANTITATIVE ANALYST MARKETING) [facility] Sodium 140 135 - 145 mmol/L Potassium, pl 4.4 3.3 - 4.9 mmol/L [facility] Chloride 103 97 - 110 mmol/L [facility] CO2 29 22 - 32 mmol/L [facility] Anion gap 8 2 - 15 mmol/L [facility] BUN 11 6 - 25 mg/dL [facility] Creatinine 0.75 0.60 - 1.10 mg/dL [facility] Glucose 109 70 - 199 mg/dL [facility] Comment: Interpretive Data Fasting glucose >/= 126 [...] Calcium 10.1 8.5 - 10.3 mg/dL [facility] Bilirubin, total 0.6 0.1 - 1.2 mg/dL [facility] Protein, pl 7.8 6.5 - 8.5 g/dL [facility] Albumin 4.7 3.5 - 5.0 g/dL [facility] Alk phos 93 40 - 130 Units/L [facility] ALT 28 7 - 45 Units/L [facility] AST 35 10 - 45 Units/L [facility] Blood 06/20/2024 10:2 0 AM QUANTITATIVE ANALYST MARKETING 06/20/2024 10:25 AM QUANTITATIVE ANALYST MARKETING us Linn Fierro SUPERVISOR INTERNATIONAL RESERVATIONS LAB BLOOD ORDERABLES Final Resu lt [facility] [place] [address] from Last 3 Months Insurance [employer]IC [employer] [place] CHO[place] Advance Directives For more information, please contact: [phone] * Full Code (Latest Code Status on File) Date Activated Date Inactivated Comments 03/17/2021 8:04 PM 03/20/2021 6:59 PM * Full Code Date Activated Date Inactivated Comments 10/30/2019 1:43 PM 10/31/2019 5:21 PM Care Teams Photographic Platemaker Relationship Specialty Start Date End Date Loyda Andujar DO [address] [place] [address] PCP - General Family Medicine 06/20/24 Onofre Fay MD [address] [place] [address] Referring Physician Obstetrics and Gynecology 03/14/19 Tyesha Helms MD PhD [address] [place] [address] Radiation Oncologist Radiation Oncology 07/20/19 Bárbara Aguila MD PhD [id number] [place] [address] Medical Oncologist/Lockstitch Back Maker Medical Oncology 03/03/20 Marie Kaiser MD PhD [address] [facility] [address] [place] [address] Surgeon Surgical Oncology 03/03/20
--- OUTSIDE RECORDS SUMMARY | 2024-06-25 08:28 | XMS_ITS ---
Author Organization [facility] Address [facility] access [facility] [place] [address] Care Team Providers Care Pan Washer Hand Name Role Phone Onofre Fay MD Unavailable [phone] Tyesha Helms MD PhD Unavailable [phone] Ayla, Bárbara Mcmullen MD PhD Unavailable Marie Kaiser MD PhD Unavaila ble Loyda Andujar DO Primary Care Provider Active Problems Problem Noted Date Diagnosed Date Lymphedema of left arm 06/16/2022 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 Overview (01/30/2022): Added automatically from request for surgery [id number] History of bilateral mastectomy 05/23/2021 History of left breast cancer 09/20/2020 Overview (09/20/2020): Added automatically from request for surgery [id number] Encounter for follow-up exam ination after completed treatment for malignant neoplasm 03/04/2020 Personal history of irradiation 03/04/2020 Eczema 11/13/2019 Persons encountering health services in other specified circumstances 05/05/2019 Malignant neoplasm of overla pping sites of left breast in female, estrogen receptor negative 05/02/2019 Cancer Staging:Clinical:Stage IIIB(cT4d, cN3c, cM0, G3, ER-, IN-, HER2+) - Signed by Tyesha Helms MD PhD on 12/17/2019 Neoplastic disease 02/06/2019 Overview (09/18/2023): Neoplasm of unsp behavior of bone, soft tissue, and skin;Recorded Elsewhere: No Location: [facility] Source: EHR Chronic: N Practice ID: [id number] Billable Time: 10:30:00 AM Abdominal bloating 03/03/2016 Overview (09/18/2023): Bloating;Recorded Elsewhere: No Location: [facility] Source: EHR Chronic: N Practice ID: [id number] Billable Time: 09:00:00 AM Tobacco use 02/12/2015 Current Oncology Plans No current plan information found. Past Plans Oncology Chemotherapy Treatment Plan Name Start Date Discontinue Date Treatment Medications Discontinue Reason Plan Provider Cycles HP: Trastuzumab / Pertuzumab 21 Day Cycles - Breast 05/19/2019 09/01/2020 CARBOplatin (PARAPLATIN)CA RBOplatin (PARAPLATIN) IVPB in 250 mLDOCEtaxel (TAXOTERE)DOCE taxel (TAXOTERE) IVPB in 250 mL (vial 10mg/mL)pertuz umab (PERJETA)pertu zumab (PERJETA) IVPBtrastuzuma b-anns (KANJINTI)tras tuzumab-anns (KANJINTI) IVPB Therapy Complete Bárbara Aguila MD PhD 17 of 17 cycles started Oncology Supportive Care Plan Name Start Date Discontinue Date Treatment Medications Discontinue Reason Plan Provider HYDRATION THERAPY PLAN 05/19/2019 09/06/2020 No medications scheduled. Therapy Complete Bárbara Aguila MD PhD Radiation Treatments * Plan Last Treated On Elapsed Days Fractions Treated Prescribed Fraction Dose Prescribed Total Dose LT CW BOOST 03/01/2020 80 5 200 cGy 1,000 c Gy LT SCV 02/25/2020 75 2 200 cGy 400 cGy LT CW REPLAN 02/23/2020 73 28 180 cGy 5,040 cGy [address] CW and LN 12/16/2019 4 3 180 cGy 5,040 c Gy Reference Point Last Treated On Elapsed Days Session Dose Total Dose PTV CW BST 03/01/2020 80 200 cGy 1,000 cGy ptv scv boost 02/25/2020 75 200 cGy 400 cGy replan lt cw 02/23/2020 73 180 cGy 5,040 cGy DPV_L CW_LN_50.4 12/16/2019 4 180 cGy 540 cGy Lifetime Dose Tracking * Chemical Lifetime Dose Automatic Entry Manual Entr y Fluoro Time 0.408 minutes 0.408 minutes 0 minutes Air kerma at the reference point (Ka,r) 3.88 mGy 3 .88 mGy 0 mGy DLP 4,721 mGycm 4,721 mGycm 0 mGycm Resolved Problems Problem Noted Date Diagnosed Date Resolved Date Disorder of breast 02/25/2019 5 Overview (09/18/2023): Disorder of breast, unspecified;Recorded Elsewhere: No Location: [facility] Source: EHR Chronic: N Practice ID: [id number] Billable Time: 12:17:55 PM Rash 02/17/2019 06/05/2024 Overview (09/18/2023): Rash and other nonspecific skin eruption;Recorded Elsewhere: No Location: [facility] Source: EHR Chronic: N Practice ID: [id number] Billable Time: 10:30:00 AM Abnormal mammogram 02/10/2015 0 Mechanical complication of i ntrauterine contraceptive device 02/03/2015 06/05/2024 Overview (09/18/2023): MALFUNCTION IUD;Recorded Elsewhere: No Location: [facility] Source: EHR Chronic: N Practice ID: [id number] Billable Time: 10:30:00 AM
--- OUTSIDE RECORDS SUMMARY | 2024-06-25 08:28 | XMS_ITS | Encounter Summary ---
Author Organization [facility] Address [address] [place] [address] Care Team Providers Care Chemical Economist Name Role Phone Onofre Fay MD Unavailable [phone] Luc Godwin MD Primary Care Provider [phone] Tyesha Helms MD PhD Unavailable [phone] Ayla, Bárbara Mcmullen MD PhD Unavailable [phone] Marie Kaiser MD PhD Unavaila ble Sudhir Way DO Primary Care Provider [phone] Loyda Andujar DO Primary Care Provider [phone] Encounter Details Date Type Department Care Team (Late st Contact Info) Description 10/31/[address] [facility] Case Management [address] [place] [address] Marvin Ahmadi, RN Social History Tobacco Use Types Packs/Day Years Used Date Smoking Tobacco: Every Day Cigarettes 0.5 47.1 Started: 1975 Smokeless Tobacco: Never Alcohol Use Standard Drinks/Week Comments Not Currently 0 (1 standard drink = 0.6 oz pur e alcohol) AUDIT-C Answer Date Recorded Frequency of Alcohol Consumption 2-4 times a sun04/07/2019 Average Number of Drinks Not on file 019 Frequency of Binge Drinking Not on file 03/15 Comments No Sex and Gender Information Value Date Recorded Sex Assigned at Not on file Legal Sex Female 9:01 AM MOTION PICTURE PROJECTIONIST APPRENTICE Gender Identity Female 01/23/2021 2:16 PM CDT Sexual Orientation Straight 01/23/2021 2: 16 PM CDT documented as of this encounter Miscellaneous Notes * Plan of Care - Marvin Ahmadi RN - 10/31/2019 3:59 PM CDT Chart reviewed Patient admitted from OR 10/30/19 S/P bilateral skin sparing mastectomy, left axillary lymph node dissection by Dr. India Kaiser and bilateral reconstruction with tissue expanders by Dr. Sinclair for history of Breast Cancer. Patient discharged from the hospital prior to Motor Coach Driver Completing initial assessment. No notification/staff of specific discharge needs requiring intervention from the Motor Coach Driver, however, Discharge Summary included Home Health and Patient was contacted to verify instruction regarding drains c ompleted prior to discharge and patient comfortable with instructions and empying the drains. Patient has follow-up appointment on Provided patient with manager proposal's name and number to call should she change her mind about Home Health documented in this encounter Plan of Treatment Not on file documented as of this encounter Visit Diagnoses Not on filedocumented in this encounter Additional Health Concerns Infection Onset Date Last Indicated Resolved Time COVID19 02/02/2022 02/02/2022 02/12/2022 3:05 AM CDT COVID: Recovered Comment:Added based on recent COVID infection. 02/12/2022 02/13/2022 06/12/2022 3:[address] documented as of this encounter Care Teams Chemical Economist Relationship Specialty Start Date End Date Luc Godwin MD [address] [place] [address] PCP - General Internal Medicine 03/20/19 02/16/[address] DO [address] [facility] [address] [place] [address] PCP - General Family Medicine 02/17/22 06/19/24 Loyda Andujar DO [address] [place] [address] PCP - General Family Medicine 06/20/24 Onofre Fay MD [address] [place] [address] Referring Physician Obstetrics and Gynecology 03/14/19 Tyesha Helms MD PhD [address] [place] [address] Radiation Oncologist Radiation Oncology 07/20/19 Bárbara Aguila MD PhD [address] [facility] [address] [place] [address] Medical Oncologist/Instrument And Electrical Technician Medical Oncology 03/03/20 Marie Kaiser MD PhD [address] [facility] [address] [place] [address] Surgeon Surgical Oncology 03/03/20 documented as of this encounter
--- OUTSIDE RECORDS SUMMARY | 2024-06-25 08:28 | XMS_ITS | Clinical Summary ---
Author Organization [facility] Address [address] [place] [address] Phone Care Team Providers Care Wheel And Caster Repairer Name Role Phone Luc Godwin MD Primary Care Provider Allergies Active Allergy Reactions Criticality Noted Date Comments Penicillins Hallucination Low 02/12/2015 Venom-Wasp Swelling Low 02/12/2015 Medications lovastatin (MEVACOR) 10 mg tabletIndication s:Abnormal mammogram 2 01/14/2015 Active gemfibrozil (LOPID) 600 mg tabletIndication s:Abnormal mammogram 2 01/14/2015 Active atenolol-chlorth alidone (TENORETIC) 50-25 mg tabletIndication s:Abnormal mammogram 2 01/25/2015 Active 0mega-3 fatty acids-vitamin E (FISH OIL) 1,000 mg CapsuleIndicatio ns:Abnormal mammogram Take 1,000 mg by mouth. Active multivitamin (DAILY-ANJEL) tabletIndication s:Abnormal mammogram Take 1 Tablet by mouth daily. Active Active Problems Patient Care Coordination No te Formatting of this note migh t be different from the original. Primary Care: Luc Godwin MD (General) Referring Provider: Rebecca Santillan MD [address] [place] [address] Other: Problem Noted Date Diagnosed Date Tobacco use 02/12/2015 Tobacco use 02/12/2015 Abnormal mammogram 02/10/2015 Eczema Family History Medical History Relation Name Comments Heart Disease Father bypass Stroke Father Lung Cancer Maternal Aunt Stroke Maternal Grandfather Hodgkin's lymphoma Maternal Grandmother n on-hodgkins Esophageal Cancer Mother Breast Cancer Paternal Aunt Relation Name Status Comments Father Maternal Aunt Maternal Grandfather Maternal Grandmother Mother Paternal Aunt Social History Tobacco Use Types Packs/Day Years Used Date Smoking Tobacco: Every Day Cigarettes 0.5 5 Smokeless Tobacco: Never Alcohol Use Standard Drinks/Week Comments Yes 0 (1 standard drink = 0.6 oz pur e alcohol) moderate Comments No Sex and Gender Information Value Date Recorded Sex Assigned at Not on file Legal Sex Female 1:36 PM CDT Gender Identity Not on file Sexual Orientation Not on file Last Filed Vital Signs Vital Sign Reading Time Taken Comments Blood Pressure 124/73 02/12/2015 9:53 AM CDT Pulse 62 02/12/2015 9:53 AM CDT Temperature - - Respiratory Rate - - Oxygen Saturation - - Inhaled Oxygen Concentration - - Weight 87.5 kg (192 lb 12.8 oz) 02/12/2015 9:53 AM CDT Height 162.6 cm (5' 4 ) 02/12/2015 9:53 AM CDT Body Mass Index 33.09 02/12/2015 9:53 AM CDT Plan of Treatment Health Maintenance Due Date Last Done Comments DTAP/TDAP/TD VACCINES (1 - Tdap) 1981 CERVICAL CANCER SCREENING 1992 COLORECTAL SCREENING 07/30/2007 Colorectal Cancer Screening 07/30/2007 FIT-DNA Q 3 years 07/30/2007 FIT/FOBT Q 1 year 07/30/2007 Flex Sig/CT Colonography Q 5 years 07/30/2007 ZOSTER VACCINE (1 of 2) 2012 BREAST CANCER SCREENING 02/09/2016 02/08/2015 INFLUENZA VACCINE (#1) 2023 RSV VACCINE (60+ or ) (1 - 1-dose 75+ series) 2037 Insurance [employer] BLUE ACCESS/TRUE BLUE PPO Care Teams Wheel And Caster Repairer Relationship Specialty Start Date End Date Luc Godwin MD [address] [place] [address] [phone] PCP - General Internal Medicine 02/12/15
[2024-06-25 18:54] LABS: Creatinine Urine 117.7 mg/dL
[2024-06-25 18:58] LABS: MALB Creatinine Ratio 6.7 mg/g (0-30); Microalbumin Urine Random 7.9 mg/L (0-16.7)
[2024-06-26 19:30] LABS: Cholesterol 153 mg/dL (0-200); HDL Direct 46 mg/dL; Triglycerides 145 mg/dL (<150)
[2024-06-26 19:41] LABS: LDL Cholesterol Direct 84 mg/dL
== END 2024-06-25 08:14 | disposition home or self-care (01) ==
LOC: ANHGOSHLAB 08:14
PROVIDERS: PCP Family Medicine; Visit Provider Family Medicine
DX: E78.2 Mixed hyperlipidemia (principal); I10 Essential (primary) hypertension
CPT/HCPCS: 36415; 80061; 82043

== ENCOUNTER 2024-09-11 11:49 | Outpatient (CLI) | payer BC, SELFPAY ==
--- NOTE | ~2024-09-11 | CT_ITS ---
EXAMINATION: CT abdomen pelvis w con DATE: 09/11/2024 12:27 INDICATION: Unspecified abdominal pain TECHNIQUE: Computed tomography (CT) of the abdomen and pelvis was performed with 100 mL Omnipaque-350 intravenous contrast. Automated exposure control and iterative reconstruction technique were employe d. The dose-length product was 584.41 mGy-cm. COMPARISON: None FINDINGS: Small pneumatocele in the right lower lobe. Heart size is normal. Atherosclerotic coronary artery owen cific location. No pericardial or pleural effusion. Diffuse hepatic steatosis with more focal fat at the ligamentum teres. High attenuation material within the decompressed gallbladder which could repre sent multiple small stones versus vicariously excreted contrast. There appears be some calcification along the gallbladder wall at the fundus. Spleen, pancreas and bilateral adrenal glands are normal. T here are low-attenuation bilateral renal cysts, the largest on the right measuring 1.8 cm with a coup le subcentimeter cysts at the left kidney. Postoperative change along the anterior abdominal wall whi ch may relate to prior ventral hernia repair. Bowels including the appendix are normal. Bladder, retr oflexed uterus and bilateral adnexa are unremarkable. No free intraperitoneal gas or fluid. No pathol ogically enlarged abdominal or pelvic lymphadenopathy. 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 Mild lumbar and lower thoracic spondylosis. IMPRESSION: 1. No acute intra-abdominal/pelvic process. 2. Decompressed gallbladder with cholelithiasis and gallbladder wall calcification (porcelain gallbla dder). 3. Diffuse hepatic steatosis. 4. Scattered atherosclerosis with moderate stenosis at the origin of the superior mesenteric artery. Reviewed, dictated and finalized at location B. IMPRESSION: 1. No acute intra-abdominal/pelvic process. 2. Decompressed gallbladder with cholelithiasis and gallbladder wall calcificat ion (porcelain gallbladder). 3. Diffuse hepatic steatosis. 4. Scattered atherosclerosis with moderate stenosis at the origin of the superi or mesenteric artery.
[2024-09-11 12:20] LABS: Estimated Glomerular Filt Rate 56
== END 2024-09-11 11:50 | disposition home or self-care (01) ==
PROVIDERS: PCP Family Medicine; Visit Provider Family Medicine
DX: R10.9 Unspecified abdominal pain (principal); K76.0 Fatty (change of) liver, not elsewhere classified; K55.1 Chronic vascular disorders of intestine
CPT/HCPCS: 74177; Q9967

== ENCOUNTER 2024-10-02 15:12 | Outpatient (CLI) | payer BC, SELFPAY ==
--- OUTSIDE RECORDS SUMMARY | 2024-10-02 15:17 | XMS_ITS | Clinical Summary ---
Author Organization [facility] Address [address] [place] [address] Care Team Providers Care Train Gateman Name Role Phone Onofre Fay MD Unavailable [phone] Tyesha Helms MD PhD Unavailable [phone] Ma, Bárbara Mcmullen MD PhD Unavailable Marie Kaiser MD PhD Unavaila ble Loyda Andujar DO Primary Care Provider [phone] Allergies Active Allergy Reactions Criticality Noted Date [...] (20 mg total) by mouth daily Active Symbicort 80-4.5 mcg/actuation inhaler Inhale 2 puffs 2 (two) times a day 06/25/2024 Active Active Problems Problem Noted Date Diagnosed Date Lymphedema of left arm 06/16/2022 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 Overview (01/30/2022): Added automatically from request for surgery [id number] History of bilateral mastectomy 05/23/2021 History of left breast cancer 09/20/2020 Overview (09/20/2020): Added automatically from request for surgery [id number] Encounter for follow-up exam ination after completed treatment for malignant neoplasm 03/04/2020 Personal history of irradiation 03/04/2020 Eczema 11/13/2019 Persons encountering health services in other specified circumstances 05/05/2019 Malignant neoplasm of overla pping sites of left breast in female, estrogen receptor negative 05/02/2019 Cancer Staging:Clinical:Stage IIIB(cT4d, cN3c, cM0, G3, ER-, IL-, HER2+) - Signed by Tyesha Helms MD PhD on 12/17/2019 Neoplastic disease 02/06/2019 Overview (09/18/2023): Neoplasm of unsp behavior of bone, soft tissue, and skin;Recorded Elsewhere: No Location: [facility] Source: EHR Chronic: N Practice ID: [id number] Billable Time: 10:30:00 AM Abdominal bloating 03/03/2016 Overview (09/18/2023): Bloating;Recorded Elsewhere: No Location: [facility] Source: EHR Chronic: N Practice ID: 0001 Billable Time: 09:00:00 AM Tobacco use 02/12/2015 Resolved Problems Problem Noted Date Diagnosed Date Resolved Date Disorder of breast 02/25/2019 5 Overview (09/18/2023): Disorder of breast, unspecified;Recorded Elsewhere: No Location: [facility] Source: EHR Chronic: N Practice ID: 0001 Billable Time: 12:17:55 PM Rash 02/17/2019 06/05/2024 Overview (09/18/2023): Rash and other nonspecific skin eruption;Recorded Elsewhere: No Location: [facility] Source: EHR Chronic: N Practice ID: 0001 Billable Time: 10:30:00 AM Abnormal mammogram 02/10/2015 0 Mechanical complication of i ntrauterine contraceptive device 02/03/2015 06/05/2024 Overview (09/18/2023): MALFUNCTION IUD;Recorded Elsewhere: No Location: [facility] Source: EHR Chronic: N Practice ID: [id number] Billable Time: 10:30:00 AM Encounters Date Type Department Care Team Description 09/26/2024 10:15 AM CDT Office Visit [facility] Surgery [address] [facility] 6th [place] [address] [place] [address] Sivakumar Sinclair MD Deformity of reconstructed breast (Primary Dx) 07/21/2024 9:00 AM CDT Office Visit [facility] Radiation Oncology [address] [facility] [place] [address] Iva Hernandez PA Malignant neoplasm of overlapping sites of left breast in female, estrogen receptor negative (HCC) (Primary Dx) from Last 3 Months Immunizations Immunization Administration Dates Next Due Influenza, Quadrivalent, Rec [...] 05/14/2013 - 05/13/2014 PORT REMOVAL 05/19/2020 TISSUE FORENSIC ANTHROPOLOGIST REMOVAL 12/13/2019 - 01/12/2020 Bilateral bilateral breast debridement US GUIDED BREAST BIOPSY LYMPH NODE SUPERFICIAL BREAST RELATED 05/14/2018 - 05/13/2019 Left INSERTION OF TISSUE FORENSIC ANTHROPOLOGIST AFTER MASTECTOMY 10/13/2019 - 11/11/2019 Bilateral RECONSTRUCTION [...] of b reast, unspecified;Recorded Elsewhere: No Location: [facility] Source: EHR Chronic: N Practice ID: [id number] Billable Time: 12:17:55 PM Mechanical complication of intrauterine contraceptive device 02/03/2015 MALFUNCTION IUD;Elijah rded Elsewhere: No Location: [facility] Source: EHR Chronic: N Practice ID: [id number] [...] on file Legal Sex Female 9:01 AM YARD PERSON Gender Identity Female 01/23/2021 2:16 PM CDT Sexual Orientation Straight 01/23/2021 2: 16 PM CDT Obstetrics History Last Filed Vital Signs Vital Sign Reading Time Taken Comments Blood Pressure 151/77 06/20/2024 9:05 AM YARD PERSON Pulse 64 06/20/2024 9:05 AM YARD PERSON Temperature 36.8 C (98.2 F) 06/20/2024 9:05 AM YARD PERSON Respiratory Rate 18 06/20/2024 9:05 AM YARD PERSON Oxygen Saturation 94% 06/20/2024 9:05 AM YARD PERSON Inhaled Oxygen Concentration - - Weight 83.9 kg (185 lb) 07/21/2024 9:12 AM CDT Height 162.6 cm (5' 4 ) 07/21/2024 9:12 AM CDT Body Mass Index 31.76 07/21/2024 9:12 AM CDT Plan of Treatment Health Maintenance Due Date Last Done Comments Breast Cancer Screening-Mammogram 1962 Cervical Cancer Screening 1962 Colon Cancer Screening-Colonoscopy 1962 Depression Screening 1962 Hepatitis C Screening 1962 DTaP/Tdap/Td Vaccine (1 - Tdap) 1973 Hepatitis B Screening 1980 Regular Well Visit/Exam 18-64 1980 Pneumococcal vaccine <65 (1 of 2 - PCV) 1981 Zoster Vaccine (1 of 2) 2012 Influenza Vaccine (Season Ended) 2025 02/11/20 22, 03/20/2021 Medical Devices Implanted Type Area Second Grade Teacher Device Identifier Shelf Expiration Date Model / Serial / Lot Sientra Inc Allox2-Fh15e Allox2 15x13.8cm Texture Integrate Port Breast P6.4-7.9cm Full - [id number] Implanted:Qty: 1 on 10/30/2019 by Sivakumar Sinclair MD at [facility] Breast Right: Breast Sient[employer] Inc 09/10/2024 ALLOX2-FH1 5E / / Sientra Inc Allox2-Fh15e Allox2 15x13.8cm Texture Integrate Port Breast P6.4-7.9cm Full - [id number] Implanted:Qty: 1 on 10/30/2019 by Sivakumar Sinclair MD at [facility] Breast Left: Breast S[employer] Inc 09/10/2024 ALLOX2-FH1 5E / / Ethicon Endo Surgery Umm3 Ultrapro 6x6in Partial Absorbable Lightweight Flat Mesh Surgical - [id number] Implanted:Qty: 1 on 03/17/2021 by Sivakumar Sinclair MD at [facility] Mesh Abdomen [employer] End[employer] Surgery [id number] 09/10/2025 [id number] / / [id number] Allergan [employer]sa [employer] [id number] Alloderm Select [id number] Allograft Regenerative Freeze Dried - [id number] - [id number] Implanted:Qty: 1 on 10/30/2019 by Sivakumar Sinclair MD at [facility] Right: Breast [employer] 09/10/2020 [id number] / [id number] / [employer]ergan [employer] [id number] Alloderm Select [id number] Allograft Regenerative Freeze Dried - [id number] - [id number] Implanted:Qty: 1 on 10/30/2019 by Sivakumar Sinclair MD at [facility] Left: Breast [employer] 09/10/2020 [id number] / [id number] / [id number] [id number] Person Microvascular Anastomoses 1.5mm Refrigeration Service Technician Anastomosis Sterile - [id number] Implanted:Qty: 1 on 03/17/2021 by Sivakumar Sinclair MD at [facility] Left: Axilla SensorWave [id number] 06/24/2025 [id number] / / [id number] Synovis Bee Resilient Allian [id number] Person Microvascular Anastomoses 1mm Refrigeration Service Technician Anastomosis Sterile - [id number] Implanted:Qty: 1 on 03/17/2021 by Sivakumar Sinclair MD at [facility] Left: Axilla [employer] [address] Bee Resilient Allian [id number] 03/17/2025 [id number] / / [id number] Synovis Bee Resilient Allian [id number] Person Microvascular 3.5mm Ring Pin Protective Cover Jaw Assembly Latex Free - [id number] Implanted:Qty: 1 on 03/17/2021 by Sivakumar Sinclair MD at [facility] Right: Abdomen [employer] [employer] Resilient Allian [id number] 09/02/2025 [id number] / / [id number] Description:Right Breast Lef t Flap [employer] Bee Resilient Allian [id number] Person 2.5mm Ring Pin Ultrasonic Doppler 20mhz Refrigeration Service Technician Anastomosis Latex Free - [id number] Implanted:Qty: 1 on 03/17/2021 by Sivakumar Sinclair MD at [facility] [employer] Allian [id number] 08/10/2025 [id number] / / [id number] Explanted Type Area Second Grade Teacher Device Identifier Shelf Expiration Date Model / Serial / Lot Bard Peripheral Vascular [id number] Powerport Clearvue Airguard 8fr 1 Lumen Lightweight Intermediate Latex Free - [id number] Implanted:Qty: 1 on 05/02/2019 by Marie Kaiser MD PhD at [facility] Explanted:Qty: 1 on 05/19/2020 by Marie Kaiser MD PhD at [facility] Right: Chest Bard Peripheral Vascular 08/11/2020 [id number] / / [id number] Tissue Equipment Validation Engineer Explanted:Qty: 2 on 12/19/2019 by Sivakumar Sinclair MD at [facility] [employer] [place] Bee Resilient Allian [id number] Person Microvascular Anastomoses 4mm Refrigeration Service Technician Anastomosis Sterile - [id number] Explanted:Qty: 1 on 03/17/2021 at [facility] Right: Abdomen [employer] Allian [id number] 01/19/2022 [id number] / / [id number] Description:Right Side Left Flap Insurance GENERIC [employer]IST [place] For more information, please contact: [phone] * Full Code (Latest Code Status on File) Date Activated Date Inactivated Comments 03/17/2021 8:04 PM 03/20/2021 6:59 PM * Full Code Date Activated Date Inactivated Comments 10/30/2019 1:43 PM 10/31/2019 5:21 PM Care Teams Train Gateman Relationship Specialty Start Date End Date Loyda Andujar DO [address] [place] [address] PCP - General Family Medicine 06/20/24 Onofre Fay MD [address] [place], [place] [id number] Referring Physician Obstetrics and Gynecology 03/14/19 Tyesha Helms MD PhD [address] [place] [address] Radiation Oncologist Radiation Oncology 07/20/19 Bárbara Aguila MD PhD [address] [facility] [address] [place], [place] [id number] Medical Oncologist/Bulk Receiver Medical Oncology 03/03/20 Marie Kaiser MD PhD [address] [facility] [address] [place] [address] Surgeon Surgical Oncology 03/03/20
--- OUTSIDE RECORDS SUMMARY | 2024-10-02 15:17 | XMS_ITS | Encounter Summary ---
Author Organization [facility] Address [address] [place] [address] Care Team Providers Care Balance Bridge Inspector Name Role Phone Onofre Fay MD Unavailable [phone] Luc Godwin MD Primary Care Provider [phone] Tyesha Helms MD PhD Unavailable [phone] Ma, Bárbara Mcmullen MD PhD Unavailable [phone] Marie Kaiser MD PhD Unavaila ble Sudhir Way DO Primary Care Provider [phone] Loyda Andujar DO Primary Care Provider [phone] Encounter Details Date Type Department Care Team (Late st Contact Info) Description 10/31/2019 Documentation [facility] Case Management [address] [place] [address] Marvin Ahmadi, RN Social History Tobacco Use Types Packs/Day Years Used Date Smoking Tobacco: Every Day Cigarettes 0.5 47.4 Started: 1975 Smokeless Tobacco: Never Alcohol Use [...] on file Legal Sex Female 9:01 AM SIDER Gender Identity Female 01/23/2021 2:16 PM CDT [...] Patient discharged from the hospital prior to Parts Salvager Completing initial assessment. No notification/staff of specific discharge needs requiring intervention from the Parts Salvager, however, Discharge Summary included Home Health and Patient was contacted to verify instruction regarding drains c ompleted prior to discharge and patient comfortable with instructions and empying the drains. Patient has follow-up appointment on Provided patient with occupational health manager's name and number to call should she [...] documented as of this encounter Care Teams Balance Bridge Inspector Relationship Specialty Start Date End Date Luc Godwin MD [address] [place] [address] PCP - General Internal Medicine 03/20/19 02/16/[address] DO [address] [facility] [address] [place] [address] PCP - General Family Medicine 02/17/22 06/19/24 Loyda Andujar DO [address] [facility] [place] [address] PCP - General Family Medicine 06/20/24 Onofre Fay MD [address] [place] [address] Referring Physician Obstetrics and Gynecology 03/14/19 Tyesha Helms MD PhD [address] [place] [address] Radiation Oncologist Radiation Oncology 07/20/19 Bárbara Aguila MD PhD [address] [facility] [address] [place] [address] Medical Oncologist/Shuttle Operator Medical Oncology 03/03/20 Marie Kaiser MD PhD [address] [facility] [address] [place] [address] Surgeon Surgical Oncology 03/03/20 documented as of this encounter
--- OUTSIDE RECORDS SUMMARY | 2024-10-02 15:17 | XMS_ITS | Data Portability ---
Author Organization [facility] Address [address] [place] [address] Care Team Providers Care Drafter Tool Design Name Role Phone MELINDA CARDENAS Primary Care Provider [phone] Assessment Encounter Date Assessment Date Assessment LastModified by Organization Details LastModified Time 01/10/2023 01/10/2023 Annual gynecological exam performed. Patient will come back in a year unless there are new symptoms. Not available 01/10/2023 14:22:42 Plan of Treatment Reminders Order Date Submit Date Provider Last Modified By Organization Details Last Modified Time Details Appointments None record ed. Lab None record ed. Referral None record ed. Procedures None record ed. Surgeries None record ed. Imaging None record ed. Medication Orders None record ed. Patient TargetsNo targets recorded. Patient InstructionsNo instructions recorded. Reason for Referral None Reported. Results Created Date Observation Date Name Description Value Unit Range Abnormal Flag Note LastModifiedBy Organization Detail LastModifiedTime 01/11/2001/10/2023 IMAGE GUIDE D PAP AND HPV REGAR DLESS image guided Pap, HPV regardless of Pap result SEE RESULT S BELOW CASE REPOR T: Cytol ogy Gynec ologi owen Repor t Case: [id number] Autho cali butterfield Provi sohan: Quinten Gupta Colle cted: 01/10 1705 BOBBIN DRIER Order ing Locat ion: [place] [facility] Recei malgorzata: 01/11 0149 First Scree n: Ayla, Leonel, CT Speci men: Scree parrish Pap - Image d, Cervi x STATE MENT OF ADEQU ACY: Satis facto ry for evalu ation Trans forma tion zone compo nent prese nt FINAL DIAGN OSIS: Negat mode for Intra epith elial Lesio n or Lucien du (NIL) . Elect jailyn cool mihir d by Leonel Aguila, CALEB on 023 at 11:50 AM ----- ----- ----- ----- ----- ----- ----- ----- ----- ----- ----- ----- ----- ----- ----- ----- ----- ---- HPV RESUL TS: HPV mRNA E6/E7 : No HPV mRNA Detec nay NOTE: This high risk HPV mRNA assay detec ts fourt een high- risk HPV types (16, 18, 31, 33, 35, 39, 45, 51, 52, 56, 58, 59, 66, 68) witho ut diffe renti ation . COMME NT: This speci men was revie wed by a Cytot echno logis t and/o r Patho logis t (as indic ated in this repor t) after evalu ation using the Thinp rep Imagi ng Syste m. CLINI OWEN INFOR MATIO N: Menst rual Statu s: LMP (if appli cable ): Clini owen Histo ry/Pr eviou s Pap: Type of Neopl rahul (if appli cable ): Signi fican t Clini owen Findi ngs: Other Histo ry: Hormo raphael (if appli cable ): PAP EDUCA KEMAL L NOTE: The Pap Test is a scree parrish test with an inher ent false negat mode rate. Liqui d-bas ed sampl ing may decre ase, but will not elimi francisco, false negat mode resul ts. A negat mode resul t does not precl ude the prese nce and/o r devel opmen t of disea se, since the prese nce of abnor mal cells in the sampl e depen ds on the locat ion of the lesio n and sampl ing techn ique. Rowan nued regul ar scree parrish is the best metho d of cance r preve ntion . If repor nay cytol ogic findi ng do not corre late with physi owen and/o r histo rical findi ngs, furth er inves tigat ion is recom debbie d, as clini alicia underwood nted. Not Available [facility] (Lab) [address], [place], [address], 01/12/2023 12:54:35 Result Notes None recorded. 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, soft tissue, and skin;Recor ded Elsewhere: No Locatio n: [facility] rce: EHR Chroni c: N Practice ID: 0001 Billa ble Time: 10:30:00 AM Not Available [facility] 0 21:54:49 Abdominal bloating 051057511 Active 2015 Bloating;R ecorded Elsewhere: No Locatio n: [facility] rce: EHR Chroni c: N Practice ID: 0001 Billa ble Time: 09:00:00 AM Not Available [facility] 0 21:54:49 Disorder of breast 75022929 Active 2018 Disorder of breast, unspecifie d;Recorded Elsewhere: No Locatio n: [facility] rce: EHR Chroni c: N Practice ID: 0001 Billa ble Time: 12:17:55 PM Not Available [facility] 0 21:54:49 Specializ ed medical examinati on Active 2010 Gynecologi owen Examinatio n;Recorded Elsewhere: No Locatio n: [facility] rce: EHR Chroni c: N Practice ID: 0001 Billa ble Time: 10:00:00 AM Not Available [facility] 0 21:54:49 Screening for malignant neoplasm of rectum Active 2015 Encounter for screening for malignant neoplasm of rectum;Rec orded Elsewhere: No Locatio n: [facility] rce: EHR Chroni c: N Practice ID: 0001 Billa ble Time: 09:00:00 AM Not Available [facility] 0 21:54:[address] Concept Active 2015 Encntr for general adult medical exam w/o abnormal findings;R ecorded Elsewhere: No Locatio n: [facility] rce: EHR Chroni c: N Practice ID: 0001 Billa ble Time: 09:00:00 AM Not Available [facility] 0 21:54:49 Mechanica l complicat ion of intrauter ine contracep tive device 986724566 Active 2014 MALFUNCTIO N IUD;Record ed Elsewhere: No Locatio n: [facility] rce: EHR Chroni c: N Practice ID: 0001 Billa ble Time: 10:30:00 AM Not Available [facility] 0 21:54:49 Screening for malignant neoplasm of cervix Active 2010 Screening for malignant neoplasms of the cervix;Rec orded Elsewhere: No Locatio n: [facility] rce: EHR Chroni c: N Practice ID: 0001 Billa ble Time: 10:00:00 AM Not Available [facility] 0 21:54:[address] Concept Active 2018 Encntr for diabetic educator exam (general) (routine) w/o abn findings;R ecorded Elsewhere: No Locatio n: [facility] rce: EHR Chroni c: N Practice ID: 0001 Billa ble Time: 10:30:00 AM Not Available [facility] 0 21:54:49 Removal of intrauter ine device Active 2011 REMOVAL OF IUD;Record ed Elsewhere: No Locatio n: [facility] rce: EHR Chroni c: N Practice ID: 0001 Billa ble Time: 08:15:00 AM Not Available [facility] 0 21:54:49 Adult health examinati on Active 2014 ROUTINE MEDICAL EXAM;Recor ded Elsewhere: No Locatio n: [facility] rce: EHR Chroni c: N Practice ID: 0001 Billa ble Time: 10:30:00 AM Not Available [facility] 0 21:54:49 Eruption 913683978 Active 2018 Rash and other nonspecifi c skin eruption;R ecorded Elsewhere: No Locatio n: [facility] rce: EHR Chroni c: N Practice ID: 0001 Billa ble Time: 10:30:00 AM Not Available [facility] 0 21:54:50 Insertion of intrauter ine contracep tive device Active 2011 INSERTION OF IUD;Practi ce ID: 0001 Not Available [facility] 0 21:54:50 test negative 425951574 Active 2011 Negative Test;Pract ice ID: 0001 Not Available [facility] 0 21:54:50 Evaluatio n finding 301076426 Active 2015 Oth abn and inconclusi ve findings on dx imaging of breast;Rec orded Elsewhere: No Locatio n: [facility] rce: EHR Chroni c: N Practice ID: 0001 Billa ble Time: 10:07:32 AM Not Available [facility] 0 21:54:51 Problem Notes None recorded. Procedures Surgical History Date Name Laterality Status Provider Name and Address Organization Details Recorded Time 9 Date of Last Mammogram completed [facility] 01/10/2023 14:23:36 9 Date of Last Pap Smear completed [facility] 01/10/2023 14:26:25 4 completed [facility] 01/10/2023 14:23:36 Tubal Ligation completed [facility] 01/10/2023 14:23:43 Bilateral Mastectomy completed [facility] 01/10/2023 14:23:43 Breast Surgery completed [facility] 01/10/2023 14:23:43 Caesarean Section completed [facility] 01/10/2023 14:23:43 Imaging Results None recorded. Procedure Notes None recorded. Medical Equipment None Reported. Allergies Allergen ID Allergen Name Allergen Category Reaction Reaction Severity Criticality Documentation Date Start Date Code Code System Note Provider Name and Address Organization Details Recorded Time 95501 Product containin g penicilli n (product) medicatio n Not available Not available Not available 04/30/2020 35493 8001 SNOMED Comme nt: [facility]at [facility]; Not Available [facility] 0 14:20:39 Medications Name Sig Start Date Stop Date Status Note LastModified by Organization Details LastModified Time Mirena 21 mcg/24 hr (up to 8 years) 52 mg intrauter ine device 03/03 completed Prescrib ed Elsewher e: No Locat ion: [facility] By: samuel morgan DateTime : 01/24/20 12 02:30:00 PM Not Available Not Available Not Available Lotrisone 1 %-0.05 % topical cream apply by topical route 2 times every day for 2 weeks to the affected and surround ing areas of skin in the morning and evening 02/17 completed Prescrib ed Elsewher e: No Locat ion: [facility]ify By: mai win DateTime : 02/07/20 19 10:30:00 AM Not Available Not Available Not Available atenolol 50 mg-chlort halidone 25 mg tablet TAKE 1/2 TABLET BY MOUTH DAILY active Not Available Not Available No t Available atenolol 25 mg tablet take 1 tablet by oral route every day 01/10 completed Prescrib ed Elsewher e: Yes Loca tion: [facility]ify By: samuel morgan DateTime : 02/04/20 15 10:30:00 AM Not Available Not Available Not Available Biaxin 500 mg tablet take 1 tablet (500MG) by oral route every 12 hours 01/23 completed Prescrib ed Elsewher e: No Locat ion: [facility] By: saul coleman DateTime : 05/02/20 11 04:12:10 PM Not Available Not Available Not Available Tenoretic 100 100 mg-25 mg tablet take 1 tablet by oral route every day 01/10 completed Prescrib ed Elsewher e: Yes Loca tion: [facility] By: ranjan morgan DateTime : 04/25/20 11 10:00:00 AM Not Available Not Available Not Available lovastati n 10 mg tablet TAKE 1 TABLET BY MOUTH EVERY EVENING active Not Available Not Available No t Available nystatin- triamcino lone 100,000 unit/gram -0.1 % topical ointment apply by topical route 1 times every day to the affected area(s) through 03/13/19 . 2018 active Prescrib ed Elsewher e: No Locat ion: [facility]ify By: mai Thornton untjosephine DateTime : 02/18/20 10:30:00 AM Not Available Not Available Not Available gemfibroz il 600 mg tablet TAKE 1 TABLET BY MOUTH TWICE DAILY WITH MEAL active Not Available Not Available No t Available gemfibroz il (bulk) powder 01/10 completed Prescrib ed Elsewher e: Yes Loca tion: [facility] By: samuel morgan DateTime : 02/04/20 15 10:30:00 AM Not Available Not Available Not Available oxycodone 5 mg tablet 01/10 completed Not Available Not Available Not Available atenolol- chlorthal idone 01/10 completed Not Available Not Available Not Available All Purpose Multi Vitamin/M in active Not Available Not Available Not Available Fish Oil 360 mg-1,200 mg capsule active Prescrib ed Elsewher e: Yes Loca tion: [facility] By: ranjan morgan DateTime : 04/25/20 11 10:00:00 AM Not Available Not Available Not Available Multi Vitamin 9 mg iron/15 mL oral liquid active Prescrib ed Elsewher e: Yes Loca tion: [facility] By: samuel morgan DateTime : 02/04/20 15 10:30:00 AM Not Available Not Available Not Available Paxlovid 300 mg (150 mg x 2)-100 mg tablets in a dose pack TAKE TWO 150 MG TABLETS OF NIRMATRE LVIR WITH ONE 100 MG TABLET OF RITONAVI R TWICE DAILY FOR 5 DAYS 01/10 completed Not Available Not Available Not Available Vitals Date Recorded Body height Body mass index (BMI) Body weight Systolic blood pressure Diastolic blood pressure Provider Name and Address Organization Details Last Updated DateTime 01/10/2023 162.56 cm 31.4 kg/m2 96956.4 g 169 mm[Hg] 79 mm[Hg] Yazmin Luis [facility] 14:23:07 Social History Question Answer Notes LastModified by Organizat ion Details LastModified Time Tobacco Smoking Status Current Every Day Smoker Yazmin Luis [facility], [facility] 01/10/2023 14:28:18 Are You Blind Or Do You Have Difficulty Seeing? No Information n ot available 01/10/2023 What Is Your Level Of Caffeine Consumption? Moderate Information not available 01/10/2023 How Much Tobacco Do You Chew? None Information not available 01/10/2023 In The 14 Days Before Symptom Onset, Have You Had Close Contact With A Laboratory-confirm ed COVID-19 While That Case Was Ill? No Information n ot available 01/10/2023 In The 14 Days Before Symptom Onset, Have You Had Close Contact With A Person Who Is Under Investigation For COVID-19 While That Person Was Ill? No Information not available 01/10/2023 Have You Been To An Area Known To Be High Risk For COVID-19? No Information not available 01/10/2023 Are You Deaf Or Do You Have Serious Difficulty Hearing? No Information not available 01/10/2023 What Type Of Diet Are You Following? REGULAR Information n ot available 01/10/2023 What Is The Highest Grade Or Level Of School You Have Completed Or The Highest Degree You Have Received? NV02883-9 Information not available 01/10/2023 Are There Any Guns Present In Your Home? No Information not available 01/10/2023 Do You Use Protection During Sex? No Information not available 01/10/2023 Do You Use Your Seat Belt Or Car Seat Routinely? Yes Information not available 01/10/2023 Do You Have Smoke And Carbon Monoxide Detectors In Your Home? Yes Information not available 01/10/2023 At What Age Did You Start Smoking Tobacco? 16 Information not available 01/10/2023 How Much Tobacco Do You Smoke? 0.5 PPD Information not available 01/10/2023 Do You Use Sunscreen Routinely? Yes Information not available 01/10/2023 How Many Years Have You Smoked Tobacco? 10 Information not available 01/10/2023 Have You Used IV Drugs? No Information not available 01/10/2023 Sex: Unknown Functional Status Question Answer Note LastModified by Organizat ion Details LastModified Time Do you use any illicit or recreational drugs? No Information not available 01/10/2023 What is your level of alcohol consumption? Occasional Information not available 01/10/2023 Are you able to walk? 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 Moderate Information not available 01/10/2023 Mental Status Question Answer Note LastModified by Organization D etails LastModified Time Do you feel stressed (tense, restless, nervous, or anxious, or unable to sleep at night)? [id number] Information not available 01/10/2023 Family History Nothing Reported Notes:Father: heart attack, Myocardial infarction, Diabetes mellitus Maternal aunt: Cancer, lung, thyroid disease, Cancer, lung Maternal grandfather: stroke, Myocardial infarction Maternal grandmother: non-hodgkins lymphoma, Lymphoma, Cancer, lung, Hodgkin's Lymphoma, Diabetes mellitus Mother: throat cancer, Diabetes mellitus Paternal aunt: Cancer, breast, Cancer, breast Medical History Condition Response Anxiety Disorder Y Hypertension Y Breast Cancer Y High Cholesterol Y Gynecological History Statement/Question Response Abnormal Pap N Date of Last Mammogram 04/06/2019 Date of LMP 07/21/2017 On BCP's at Conception? N N Was last menstrual period normal Y STIs/STDs N HPV Vaccine N Current Control Method Menopause Age at First Child 20 If Post Menopausal, Age at Menopause 54 Most Recent Bone Density Sexually Active? Y Menses Monthly N Age of first menstrual cycle 14 Date of Last Pap Smear 02/06/2019 Sexual Problems? N LMP Approximate 07/26/2013 N Obstetrics History GPAL:G 2 P 0 0 0 2 Type Value Living 2 Total 2 Past Encounters Encounter ID Performer Location Encounter Start Date Encounter Closed Date Diagnosis/Indication Diagnosis SNOMED-CT Code Diagnosis ICD10 Code Diagnosis Note [id number] Maria Luz Baires [facility] [address] [address] 01/10/2023 14:05:59 01/10/2023 15:43:30 Gynecologic examination 41937094 Z01.419 Z11.51 Take Calcium with Vitamin D 12-1500mg daily. Do monthly self breast exams. It is advised to get annual flu shot in the fall and she could obtain at [facility] or [facility]. If you haven't received the Tdap vaccine in the last 10 years you should obtain one as well. Have mammogram yearly, bone density every 2-3 years and colonoscop y every 5-10 years depending on findings and history. Engage in daily exercise of low impact aerobic exercise 45-60 minutes 4-5 times weekly. Avoid tobacco and illicit drugs as well as using moderation with alcohol intake less than 1-2 8 oz beverages daily. This lifestyle behavior pattern will lead to less health conditions and longer life span. If BMI greater than 25 weight watchers or dietary consult advised. Questions have been answered. Patient appears to understand instructio ns, but if you have any further questions call or respond to this email Pap/hpv sentSTD Screen declinedGe netic Screen discussedC olon Screen UTD PCPDexa Screen UTD PCPRoutine Labs UTD PCPMammo-- breast care provided by oncologist Generalize d anxiety disorder 05387350 F41.1 Has appt with PCP.Gave her some counseling resources and encouraged her to reach out & make apptContac t us if needs assistance with this.We discussed the stress of this past 4yrs dealing with breast cancer treatments /surgery/r ecovery from this. She feels it has all caught up with me. Much anxiety/pa emerita feelings that come on suddenly with no prompting. Neg depression Neg suicidal ideations or thoughts of self harm.Appre ciative of discussion and will make this appt. 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 Post-MenopausalRe ported bypatient.Menopau lynne Symptoms:no menopausal symptoms; normal vaginal lubrication Vaginal Bleeding:history of menopause having occurred; no history of post menopausal bleeding Urinary Symptoms:no hematuria; no incontinence; no nocturia; no urinary frequency Vulva:no genital lesion; no vulvar atrophy Vagina:normal vaginal discharge; no vaginal atrophy Breast:no breast lump; no nipple discharge; no breast pain Sexual Complaints:no sexual complaints Psychological Symptoms:no depression; no anxiety Preventive Measures:encourag e regular mammograms starting age 40; encourage self breast examination; encourage regular exercise; encourage no tobacco use; mammogram performed within the past year; history of recent colonoscopy Maria Luz Baires, [facility] [address], [place], [address], [facility] 01/10/2023 15:36:20 OBGyn Episode Ob Episode Information Episode Created Date Number of Fetuses Patient Bloodtype Patient rh Status Prepregnancy Weight lbs Domestic Partner Domestic Partner Phone Father Name Knifeman Status 01/11/20 23 1 CLOSED Fetus Data First Name Last Name Admitted to NICU Weight (g) Sex Living Outcome Pediatric Complications Fetus ID Race Codes Race Delivery Type 2976.47 [id number] Repeat Justice Calculation Initial Justice Date Initial Exam Date Initial Exam Provider Initial Ultrasound Date Last Menstrual Period Date Ultra Sound Weeks Gestation 0 Eighteen To Twenty Week Justice Update Ultra Sound Date Fundal Height At Umbil Quickening Date Ultra Sound Latest Weeks Gestation Final Justice Confirmed By Final Justice Confirmed Date Final Justice Date Ultra Sound Latest Days Gestation 0 0 Menstrual History Last Menstrual Date Menses Monthly On Bcp Conception Prior Menses Frequency Hcg Plus Date Menarche Onset Age Delivery Information Delivery Date Delivery Type Labor Anesthesia Weeks Gestation Incision Type Labor Labor Length Hrs Delivered By Post Complications Tubal Sterilization Discharge Date Comments 4 Discharge Information Feeding Method Contraceptive Method Maternal HG B and HCT Levels Ob Episode Information Episode Created Date Number of Fetuses Patient Bloodtype Patient rh Status Prepregnancy Weight lbs Domestic Partner Domestic Partner Phone Father Name Knifeman Status 01/11/20 23 1 CLOSED Fetus Data First Name Last Name Admitted to NICU Weight (g) Sex Living Outcome Pediatric Complications Fetus ID Race Codes Race Delivery Type 3572.03 [id number] Primary Justice Calculation Initial Justice Date Initial Exam Date Initial Exam Provider Initial Ultrasound Date Last Menstrual Period Date Ultra Sound Weeks Gestation 0 Eighteen To Twenty Week Justice Update Ultra Sound Date Fundal Height At Umbil Quickening Date Ultra Sound Latest Weeks Gestation Final Justice Confirmed By Final Justice Confirmed Date Final Justice Date Ultra Sound Latest Days Gestation 0 0 Menstrual History Last Menstrual Date Menses Monthly On Bcp Conception Prior Menses Frequency Hcg Plus Date Menarche Onset Age Delivery Information Delivery Date Delivery Type Labor Anesthesia Weeks Gestation Incision Type Labor Labor Length Hrs Delivered By Post Complications Tubal Sterilization Discharge Date Comments 1 Discharge Information Feeding Method Contraceptive Method Maternal HG B and HCT Levels
--- OUTSIDE RECORDS SUMMARY | 2024-10-02 15:17 | XMS_ITS | Referral Summary ---
Author Organization [facility] Address [address] [place] [address] Care Team Providers Care Stacker Driver Name Role Phone Onofre Fay MD Unavailable [phone] Tyesha Helms MD PhD Unavailable [phone] Ma, Bárbara Mcmullen MD PhD Unavailable [phone] Marie Kaiser MD PhD Unavaila ble Loyda Andujar DO Primary Care Provider [phone] Encounters Date Type Department Care Team Description 09/26/2024 10:15 AM CDT Office Visit [facility] Surgery [address] [place] [address] [place] [address] Sivakumar Sinclair MD Deformity of reconstructed breast (Primary Dx) 07/21/2024 9:00 AM CDT Office Visit [facility] Radiation Oncology [address] [address] Iva Hernandez PA Malignant neoplasm of overlapping sites of left breast in female, estrogen receptor negative (HCC) (Primary Dx) from Last 3 Months Allergies Active Allergy [...] (01/30/2022): Added automatically from request for surgery [id number] History of bilateral mastectomy 05/23/2021 History of left breast cancer 09/20/2020 Overview (09/20/2020): Added automatically from request for surgery [id number] Encounter for follow-up exam ination after completed treatment for malignant neoplasm 03/04/2020 Personal history of irradiation 03/04/2020 Eczema 11/13/2019 Persons encountering health services in other specified circumstances 05/05/2019 Malignant neoplasm of overla pping sites of left breast in female, estrogen receptor negative 05/02/2019 Cancer Staging:Clinical:Stage IIIB(cT4d, cN3c, cM0, G3, ER-, [place]-, HER2+) - Signed by Tyesha Helms MD PhD on 12/17/2019 Neoplastic disease 02/06/2019 Overview (09/18/2023): Neoplasm of unsp behavior of bone, soft tissue, and skin;Recorded Elsewhere: No Location: [facility] Source: EHR Chronic: N Practice ID: [id number] Billable Time: 10:30:00 AM Abdominal bloating 03/03/2016 Overview (09/18/2023): Bloating;Recorded Elsewhere: No Location: [facility] Source: EHR Chronic: N Practice ID: [id number] Billable Time: 09:00:00 AM Tobacco use 02/12/2015 Resolved Problems Problem Noted Date Diagnosed Date Resolved Date Disorder of breast 02/25/2019 5 Overview (09/18/2023): Disorder of breast, unspecified;Recorded Elsewhere: No Location: [facility] Source: EHR Chronic: N Practice ID: [id number] Billable Time: 12:17:55 PM Rash 02/17/2019 06/05/2024 Overview (09/18/2023): Rash and other nonspecific skin eruption;Recorded Elsewhere: No Location: [facility] Source: EHR Chronic: N Practice ID: [id number] Billable Time: 10:30:00 AM Abnormal mammogram 02/10/2015 0 Mechanical complication of i ntrauterine contraceptive device 02/03/2015 06/05/2024 Overview (09/18/2023): MALFUNCTION IUD;Recorded Elsewhere: No Location: [facility] Source: EHR Chronic: N Practice ID: [id number] Billable Time: 10:30:00 AM Immunizations Immunization Administration Dates Next Due Influenza, [...] on file Legal Sex Female 9:01 AM HEAD FILTER PRESS TENDER Gender Identity Female 01/23/2021 2:16 PM CDT Sexual Orientation Straight 01/23/2021 2: 16 PM CDT Last Filed Vital Signs Vital Sign Reading Time Taken Comments Blood Pressure 151/77 06/20/2024 9:05 AM HEAD FILTER PRESS TENDER Pulse 64 06/20/2024 9:05 AM HEAD FILTER PRESS TENDER Temperature 36.8 C (98.2 F) 06/20/2024 9:05 AM HEAD FILTER PRESS TENDER Respiratory Rate 18 06/20/2024 9:05 AM HEAD FILTER PRESS TENDER Oxygen Saturation 94% 06/20/2024 9:05 AM HEAD FILTER PRESS TENDER Inhaled Oxygen Concentration - - Weight 83.9 kg (185 lb) 07/21/2024 9:12 AM CDT Height 162.6 cm (5' 4 ) 07/21/2024 9:12 AM CDT Body Mass Index 31.76 07/21/2024 9:12 AM CDT Plan of Treatment Not on file Medical Devices Implanted Type Area Workforce Consultant Device Identifier Shelf Expiration Date Model / Serial / Lot Sientra Inc Allox2-Fh15e Allox2 15x13.8cm Texture Integrate Port Breast P6.4-7.9cm Full - [id number] Implanted:Qty: 1 on 10/30/2019 by Sivakumar Sinclair MD at [facility] Breast Right: Breast S[employer] Inc 09/10/2024 ALLOX2-FH1 5E / / Sientra Inc Allox2-Fh15e Allox2 15x13.8cm Texture Integrate Port Breast P6.4-7.9cm Full - [id number] Implanted:Qty: 1 on 10/30/2019 by Sivakumar Sinclair MD at [facility] Breast Left: Breast [employer] 09/10/2024 ALLOX2-FH1 5E / / Ethicon Endo Surgery Umm3 Ultrapro 6x6in Partial Absorbable Lightweight Flat Mesh Surgical - [id number] Implanted:Qty: 1 on 03/17/2021 by Sivakumar Sinclair MD at [facility] Mesh Abdomen Ethicon Endo Surgery [id number] 09/10/2025 [id number] / / [id number] Allergan [employer]sa [employer] [id number] Alloderm Select 01k80tz Allograft Regenerative Freeze Dried - [id number] - [id number] Implanted:Qty: 1 on 10/30/2019 by Sivakumar Sinclair MD at [facility] Right: Breast [employer] 09/10/2020 [id number] / [id number] / [employer]ergan [employer] [id number] Alloderm Select 53x30tb Allograft Regenerative Freeze Dried - [id number] - [id number] Implanted:Qty: 1 on 10/30/2019 by Sivakumar Sinclair MD at [facility] Left: Breast [employer]gan [employer] 09/10/2020 [id number] / [id number] / Force-Aian [id number] Tripp Microvascular Anastomoses 1.5mm Training And Development Officer Anastomosis Sterile - [id number] Implanted:Qty: 1 on 03/17/2021 by Sivakumar Sinclair MD at [facility] Left: Axilla [employer] [id number] 06/24/2025 [id number] / / [id number] [employer] Allian [id number] Tripp Microvascular Anastomoses 1mm Training And Development Officer Anastomosis Sterile - [id number] Implanted:Qty: 1 on 03/17/2021 by Sivakumar Sinclair MD at [facility] Left: Axilla [employer] Allian [id number] 03/17/2025 [id number] / / [id number] [employer] Allian [id number] Tripp Microvascular 3.5mm Ring Pin Protective Cover Jaw Assembly Latex Free - [id number] Implanted:Qty: 1 on 03/17/2021 by Sivakumar Sinclair MD at [facility] Right: Abdomen [employer] Allian [id number] 09/02/2025 [id number] / / [id number] Description:Right Breast Lef t Flap [employer] Allian 2753 Tripp 2.5mm Ring Pin Ultrasonic Doppler 20mhz Training And Development Officer Anastomosis Latex Free - [id number] Implanted:Qty: 1 on 03/17/2021 by Sivakumar Sinclair MD at [facility] [employer] Allian [id number] 08/10/2025 2753 / / [id number] Explanted Type Area Workforce Consultant Device Identifier Shelf Expiration Date Model / Serial / Lot Bard Peripheral Vascular [id number] Powerport Clearvue Airguard 8fr 1 Lumen Lightweight Intermediate Latex Free - [id number] Implanted:Qty: 1 on 05/02/2019 by Marie Kaiser MD PhD at [facility] Explanted:Qty: 1 on 05/19/2020 by Marie Kaiser MD PhD at [facility] Right: Chest Bard Peripheral Vascular 08/11/2020 [id number] / / [id number] Tissue Drug Safety Coordinator Explanted:Qty: 2 on 12/19/2019 by Sivakumar Sinclair MD at [facility] [employer] Inc [employer] Allian [id number] Tripp Microvascular Anastomoses 4mm Training And Development Officer Anastomosis Sterile - [id number] Explanted:Qty: 1 on 03/17/2021 at [facility] Right: Abdomen [employer] Allian [id number] 01/19/2022 [id number] / / [id number] Description:Right Side Left Flap Insurance GENERIC COPAY ASSIST BL CHOICE PRF PPO MD BL CHO[place] Advance Directives For more information, please contact: [phone] * Full Code (Latest Code Status on File) Date Activated Date Inactivated Comments 03/17/2021 8:04 PM 03/20/2021 6:59 PM * Full Code Date Activated Date Inactivated Comments 10/30/2019 1:43 PM 10/31/2019 5:21 PM Care Teams Stacker Driver Relationship Specialty Start Date End Date Loyda Andujar DO [address] [place] [id number] PCP - General Family Medicine 06/20/24 Onofre Fay MD [address] [place] [address] Referring Physician Obstetrics and Gynecology 03/14/19 Tyesha Helms MD PhD [address] [place] [address] Radiation Oncologist Radiation Oncology 07/20/19 Bárbara Aguila MD PhD [address] [facility] [address] [place] [address] Medical Oncologist/Plumbing Drafter Medical Oncology 03/03/20 Marie Kaiser MD PhD [address] [facility] [address] [place] [address] Surgeon Surgical Oncology 03/03/20
--- OUTSIDE RECORDS SUMMARY | 2024-10-02 15:17 | XMS_ITS | Clinical Summary ---
Author Organization [facility] Address [address] [place] [address] Phone Care Team Providers Care Investment Banking Associate Name Role Phone Luc Godwin MD Primary Care Provider [phone] Allergies Active Allergy Reactions Criticality Noted Date [...] Provider: Rebecca Santillan MD [address] [place] [address] Other: Problem Noted Date Diagnosed Date Tobacco [...] Comments DTAP/TDAP/TD VACCINES (1 - Tdap) 1981 HPV/Cotest (21-29) 07/30/1983 CERVICAL CANCER SCREENING 1992 HPV/Cotest (30-65) 1992 PAP SMEAR 1992 COLORECTAL SCREENING 07/30/2007 Colorectal Cancer Screening 07/30/2007 FIT-DNA Q 3 years 07/30/2007 FIT/FOBT Q 1 year 07/30/2007 Flex Sig/CT Colonography Q 5 years 07/30/2007 ZOSTER VACCINE (1 of 2) 2012 BREAST CANCER SCREENING 02/09/2016 02/08/2015 INFLUENZA VACCINE (#1) 2023 RSV VACCINE (60+ or ) (1 - 1-dose 75+ series) 2037 Insurance [facility] BLUE ACCESS/TRUE BLUE PPO Care Teams Investment Banking Associate Relationship Specialty Start Date End Date Luc Godwin MD [address] [place] [phone] PCP - General Internal Medicine 02/12/15
--- OUTSIDE RECORDS SUMMARY | 2024-10-02 15:17 | XMS_ITS ---
Author Organization [facility] Address [address] [place] [address] Care Team Providers Care Drying Machine Tender Name Role Phone Onofre Fay MD Unavailable [phone] Tyesha Helms MD PhD Unavailable [phone] Ayla, Bárbara Mcmullen MD PhD Unavailable Marie Kaiser MD PhD Unavaila ble Loyda Andujar DO Primary Care Provider Active Problems Problem Noted Date Diagnosed Date Lymphedema of left arm 06/16/2022 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 Overview (01/30/2022): Added automatically from request for surgery [id number] History of bilateral mastectomy 05/23/2021 History of left breast cancer 09/20/2020 Overview (09/20/2020): Added automatically from request for surgery [id number] Encounter for follow-up exam ination after completed treatment for malignant neoplasm 03/04/2020 Personal history of irradiation 03/04/2020 Eczema 11/13/2019 Persons encountering health services in other specified circumstances 05/05/2019 Malignant neoplasm of overla pping sites of left breast in female, estrogen receptor negative 05/02/2019 Cancer Staging:Clinical:Stage IIIB(cT4d, cN3c, cM0, G3, ER-, [place]-, HER2+) - Signed by Tyesha Helms MD PhD on 12/17/2019 Neoplastic disease 02/06/2019 Overview (09/18/2023): Neoplasm of unsp behavior of bone, soft tissue, and skin;Recorded Elsewhere: No Location: [facility] Source: EHR Chronic: N Practice ID: [id number] Billable Time: 10:30:00 AM Abdominal bloating 03/03/2016 Overview (09/18/2023): Bloating;Recorded Elsewhere: No Location: [facility] Source: EHR Chronic: N Practice ID: [id number] Billable Time: 09:00:00 AM Tobacco use 02/12/2015 Current Treatment and Therapy Plans No current plan information found. Past Treatment and Therapy Plans Oncology Chemotherapy Treatment Plan Name Start [...] of 17 cycles started Oncology Supportive Care Therapy Plan Plan Name Start Date Discontinue Date Treatment Medications Discontinue Reason Plan Provider HYDRATION THERAPY PLAN 05/19/2019 09/06/2020 No medications scheduled. Therapy Complete Bárbara Aguila MD PhD Radiation Treatments * Course [id number] 12/12/2019 - 03/01/2020 Treatment Period Energy Fraction Dose Fractions Total Dose Plans Planned LT CW BOOST 02/24/2020 - 03/01/2020 200 5 / 1,000 LT SCV 02/24/2020 - 02/25/2020 200 2 / 400 LT CW REPLAN 01/14/2020 - 02/23/2020 180 28 / 5,[address] 12/12/2019 - 12/16/2019 180 3 / 5,040 Reference Points Delivered PTV CW BST 02/24/2020 - 03/01/2020 1,000 ptv scv boost 02/24/2020 - 02/25/2020 400 replan lt cw 01/14/2020 - 02/23/2020 5,040 DPV_L CW_LN_50.4 12/12/2019 - 12/16/2019 540 Lifetime Dose Tracking * Chemical Lifetime Dose Automatic Entry Manual Entr y Fluoro Time 0.408 minutes 0.408 minutes 0 minutes Air kerma at the reference point (Ka,r) 3.88 mGy 3 .88 mGy 0 mGy DLP 5,022 mGycm 5,022 mGycm 0 mGycm Resolved Problems Problem Noted Date Diagnosed Date Resolved Date Disorder of breast 02/25/2019 5 Overview (09/18/2023): Disorder of breast, unspecified;Recorded Elsewhere: No Location: [facility] Source: EHR Chronic: N Practice ID: [id number] Billable Time: 12:17:55 PM Rash 02/17/2019 06/05/2024 Overview (09/18/2023): Rash and other nonspecific skin eruption;Recorded Elsewhere: No Location: [facility] Source: EHR Chronic: N Practice ID: [id number] Billable Time: 10:30:00 AM Abnormal mammogram 02/10/2015 0 Mechanical complication of i ntrauterine contraceptive device 02/03/2015 06/05/2024 Overview (09/18/2023): MALFUNCTION IUD;Recorded Elsewhere: No Location: [facility] Source: EHR Chronic: N Practice ID: [id number] Billable Time: 10:30:00 AM
--- NOTE | 2024-10-02 15:30 | ECG_ITS ---
Test Date: 2024-10-02 15:44:37 Measurements Intervals Lima Rate: 71 P: 54 WA: 216 QRS: 11 QRSD: 103 T: 9 QT: 395 QTc: 429 Interpretive Statements SINUS RHYTHM WITH FIRST DEGREE AV BLOCK POSSIBLE ANTERIOR MYOCARDIAL INFARCTION [30 ms Q WAVE IN V3/V4, OR R < 0.2 mV IN V4], PROBABLY OLD NONSPECIFIC ST AND T WAVE ABNORMALITY No previous ECG available for comparison Electronically Signed On 10-03-2024 12:36:53 CDT by Javad Hogan M.D.
[2024-10-02 16:08] LABS: Anion Gap 9 mmol/L (4-12); Blood Urea Nitrogen 12 mg/dL (7-17); Calcium 10.1 mg/dL (8.4-10.2); Carbon Dioxide 28 mmol/L (22-30); Chloride 101 mmol/L (98-107); Estimated Glomerular Filt Rate > 60; Glucose 98 mg/dL (65-110); Potassium 3.4 mmol/L (3.4-5.0); Sodium 138 mmol/L (137-145)
[2024-10-02 16:21] LABS: Alanine Aminotransferase 360 U/L (6-35); Alkaline Phosphatase 125 U/L (38-126); Amylase 120 U/L (30-110); Aspartate Amino Transferase 519 U/L (14-36); Bilirubin Direct 0.4 mg/dL (0-0.3); Bilirubin,Total 2.4 mg/dL (0.2-1.3)
[2024-10-02 17:21] LABS: Lipase 2545 U/L (23-300)
== END 2024-10-02 15:13 | disposition home or self-care (01) ==
LOC: ANHSURGERY 15:15
PROVIDERS: Anesthesiology; PCP Family Medicine; Visit Provider Surgery
DX: Z01.818 Encounter for other preprocedural examination (principal); K80.10 Calculus of gallbladder with chronic cholecystitis without obstruction; I10 Essential (primary) hypertension; Z79.899 Other long term (current) drug therapy
CPT/HCPCS: 36415; 80048; 80076; 82150; 83690; 93005

== ENCOUNTER 2024-10-03 01:48 | Day surgery (SDC) | payer BC, SELFPAY ==
[2024-10-02 13:41] VITALS: BMI 31.3
--- NOTE | 2024-10-02 13:55 | PC.NURSE ---
Report to the Outpatient Waiting Room, entrance under the green pavilion located off [facility], at time _1230_ on date _[id number]_. Planned Procedure Time: _230pm_.? Time changes happen often and if your time is changed the preop area will call you the afternoon before. - You and your visitor will be asked to self-screen and do not enter if you have any COVID symptoms. Please call surgeon if you need to reschedule. - A mask is optional within the hospital at this time. Patients may have clear liquids (water, carbonated beverages, clear teas, apple juice) until 3 hours prior to surgery with a maximum of 20 ounces. - No food from midnight until time of surgery and no smoking, or chewing tobacco (or any form of nicotine). No chewing gum, candy or mints. Take only the following medications with a SIP of water on the morning of surgery: ___Citalopram____ DO NOT STOP ANY OF YOUR OTHER PRESCRIPTION MEDICATIONS PRIOR TO SURGERY EXCEPT THE FOLLOWING Hold all vitamins and supplements for 3 days per anesthesiologist. Medications to discontinue per physician Date to take last dose Please no make-up, nail cameroonian, hairspray, perfume, deodorant, or body powder the day of surgery.? No jewelry (including any body piercings) or valuables the day of surgery, leave them at home.? Please take a shower or bath the night before, or the morning of, surgery with an antibacterial soap.? Wear comfortable, loose fitting clothing.? - Jewelry must be removed prior to entering the operating room.? Rings and piercings that are not removed may be cut off. - The hospital will not accept responsibility for valuables.? - Please leave all valuables, including medications, at home the day of surgery. If you are going home after surgery, a licensed vending route driver must drive you home.? - NO public transportation without another adult if you receive anesthesia. - We recommend that an adult stay with you for 24 hours following discharge. - We also recommend that you do not drive, make important decision, drink alcoholic beverages, or take any drugs that were not prescribed by your health care provider for at least 24 hours after your discharge time. Follow any additional instructions given to you from your surgeon. Telephone instructions given to __Regina___and asked if any additional questions and then verbalized understanding. Patient advised to call surgeon office or pre surgery nurse liaison [phone] if any additional questions.
[2024-10-03] VITALS (10 sets, daily range): BP systolic 115–165; BP diastolic 48–73; PULSE 75–91; RESP 14–22; TEMP 36.1–36.2; O2SAT 94–100
--- OUTSIDE RECORDS SUMMARY | 2024-10-03 01:50 | XMS_ITS ---
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 Overview (01/30/2022): Added automatically from request for surgery [id number] History of bilateral mastectomy 05/23/2021 History of left breast cancer 09/20/2020 Overview (09/20/2020): Added automatically from request for surgery [id number] Encounter for follow-up exam ination after completed treatment for malignant neoplasm 03/04/2020 Personal history of irradiation 03/04/2020 Eczema 11/13/2019 Persons encountering health services in other specified circumstances 05/05/2019 Malignant neoplasm of overla pping sites of left breast in female, estrogen receptor negative 05/02/2019 Cancer Staging:Clinical:Stage IIIB(cT4d, cN3c, cM0, G3, ER-, [place]-, HER2+) - Signed by Tyesha Helms MD PhD on 12/17/2019 Neoplastic disease 02/06/2019 Overview (09/18/2023): Neoplasm of unsp behavior of bone, soft tissue, and skin;Recorded Elsewhere: No Location: [facility] Source: EHR Chronic: N Practice ID: [id number] Billable Time: 10:30:00 AM Abdominal bloating 03/03/2016 Overview (09/18/2023): Bloating;Recorded Elsewhere: No Location: [facility] Source: EHR Chronic: N Practice ID: [...] Disorder of breast, unspecified;Recorded Elsewhere: No Location: [facility] Source: EHR Chronic: N Practice ID: [id number] Billable Time: 12:17:55 PM Rash 02/17/2019 06/05/2024 Overview (09/18/2023): Rash and other nonspecific skin eruption;Recorded Elsewhere: No Location: [facility] Source: EHR Chronic: N Practice ID: [id number] Billable Time: 10:30:00 AM Abnormal mammogram 02/10/2015 0 Mechanical complication of i ntrauterine contraceptive device 02/03/2015 06/05/2024 Overview (09/18/2023): MALFUNCTION IUD;Recorded Elsewhere: No Location: [facility] Source: EHR Chronic: N Practice ID: [id number] Billable Time: 10:30:00 AM
--- OUTSIDE RECORDS SUMMARY | 2024-10-03 01:50 | XMS_ITS | Referral Summary ---
Author Organization [facility] Address [address] [place] [address] Care Team Providers Care Marine Meteorologist Name Role Phone Onofre Fay MD Unavailable [phone] Tyesha Helms MD PhD Unavailable Ma, Bárbara Mcmullen MD PhD Unavailable Marie Kaiser MD PhD Unavaila ble Loyda Andujar DO Primary Care Provider Encounters Date Type Department Care Team Description 09/26/2024 10:15 AM CDT Office Visit [facility] [address] [facility] 6th [place] [address] [place] [address] Sivakumar Sinclair MD Deformity of reconstructed breast (Primary Dx) 07/21/2024 9:00 AM CDT Office Visit [facility] Radiation Oncology [address] [facility] [place] [address] Iva Hernandez PA Malignant neoplasm of overlapping [...] (01/30/2022): Added automatically from request for surgery [id number] History of bilateral mastectomy 05/23/2021 History of left breast cancer 09/20/2020 Overview (09/20/2020): Added automatically from request for surgery [id number] Encounter for follow-up exam ination after completed treatment for malignant neoplasm 03/04/2020 Personal history of irradiation 03/04/2020 Eczema 11/13/2019 Persons encountering health services in other specified circumstances 05/05/2019 Malignant neoplasm of overla pping sites of left breast in female, estrogen receptor negative 05/02/2019 Cancer Staging:Clinical:Stage IIIB(cT4d, cN3c, cM0, G3, ER-, CA-, HER2+) - Signed by Tyesha Helms MD PhD on 12/17/2019 Neoplastic disease 02/06/2019 Overview (09/18/2023): Neoplasm of unsp behavior of bone, soft tissue, and skin;Recorded Elsewhere: No Location: [facility] Source: EHR Chronic: N Practice ID: 0001 Billable Time: 10:30:00 AM Abdominal bloating 03/03/2016 Overview (09/18/2023): Bloating;Recorded Elsewhere: No Location: [facility] Source: EHR Chronic: N Practice ID: 0001 Billable Time: 09:00:00 AM Tobacco use 02/12/2015 Resolved Problems Problem Noted Date Diagnosed Date Resolved Date Disorder of breast 02/25/2019 5 Overview (09/18/2023): Disorder of breast, unspecified;Recorded Elsewhere: No Location: [facility] Source: EHR Chronic: N Practice ID: 0001 Billable Time: 12:17:55 PM Rash 02/17/2019 06/05/2024 Overview (09/18/2023): Rash and other nonspecific skin eruption;Recorded Elsewhere: No Location: [facility] Source: EHR Chronic: N Practice ID: 0001 Billable Time: 10:30:00 AM Abnormal mammogram 02/10/2015 0 Mechanical complication of i ntrauterine contraceptive device 02/03/2015 06/05/2024 Overview (09/18/2023): MALFUNCTION IUD;Recorded Elsewhere: No Location: [facility] Source: EHR Chronic: N Practice ID: 0001 [...] on file Legal Sex Female 9:01 AM TUFTING MACHINE OPERATOR SINGLE NEEDLE Gender Identity Female 01/23/2021 2:16 PM CDT Sexual Orientation Straight 01/23/2021 2: 16 PM CDT Last Filed Vital Signs Vital Sign Reading Time Taken Comments Blood Pressure 151/77 06/20/2024 9:05 AM TUFTING MACHINE OPERATOR SINGLE NEEDLE Pulse 64 06/20/2024 9:05 AM TUFTING MACHINE OPERATOR SINGLE NEEDLE Temperature 36.8 C (98.2 F) 06/20/2024 9:05 AM TUFTING MACHINE OPERATOR SINGLE NEEDLE Respiratory Rate 18 06/20/2024 9:05 AM TUFTING MACHINE OPERATOR SINGLE NEEDLE Oxygen Saturation 94% 06/20/2024 9:05 AM TUFTING MACHINE OPERATOR SINGLE NEEDLE Inhaled Oxygen Concentration - - Weight 83.9 kg (185 lb) 07/21/2024 9:12 AM CDT Height 162.6 cm (5' 4 ) 07/21/2024 9:12 AM CDT Body Mass Index 31.76 07/21/2024 9:12 AM CDT Plan of Treatment Not on file Medical Devices Implanted Type Area Applications Systems Analyst Device Identifier Shelf Expiration Date Model / Serial / Lot Sientra Inc Allox2-Fh15e Allox2 15x13.8cm Texture Integrate Port Breast P6.4-7.9cm Full - [id number] Implanted:Qty: 1 on 10/30/2019 by Sivakumar Sinclair MD at [facility] Breast Right: Breast Sientra Inc 09/10/2024 ALLOX2-FH1 5E / / Sientra Inc Allox2-Fh15e Allox2 15x13.8cm Texture Integrate Port Breast P6.4-7.9cm Full - [id number] Implanted:Qty: 1 on 10/30/2019 by Sivakumar Sinclair MD at [facility] Breast Left: Breast Sientra Inc 09/10/2024 ALLOX2-FH1 5E / / Ethicon Endo Surgery Umm3 Ultrapro 6x6in Partial Absorbable Lightweight Flat Mesh Surgical - [id number] Implanted:Qty: 1 on 03/17/2021 by Sivakumar Sinclair MD at [facility] Mesh Abdomen Ethicon Endo Surgery [id number] 09/10/2025 UMM3 / / [id number] Allergan Usa Inc [id number] Alloderm Select 01w71is Allograft Regenerative Freeze Dried - [id number] - [id number] Implanted:Qty: 1 on 10/30/2019 by Sivakumar Sinclair MD at [facility] Right: Breast Allergan Usa Inc 09/10/2020 [id number] / [id number] / Allergan Usa Inc [id number] Alloderm Select 22z23nw Allograft Regenerative Freeze Dried - [id number] - [id number] Implanted:Qty: 1 on 10/30/2019 by Sivakumar Sinclair MD at [facility] Left: Breast Allergan Usa Inc 09/10/2020 [id number] / [id number] / 100du.tvian [id number] Dubois Microvascular Anastomoses 1.5mm Policewoman Anastomosis Sterile - [id number] Implanted:Qty: 1 on 03/17/2021 by Sivakumar Sinclair MD at [facility] Left: Axilla Therapydia [id number] 06/24/2025 [id number] / / [id number] M-KOPA Allian [id number] Dubois Microvascular Anastomoses 1mm Policewoman Anastomosis Sterile - [id number] Implanted:Qty: 1 on 03/17/2021 by Sivakumar Sinclair MD at [facility] Left: Axilla Synovis [employer] Allian [id number] 03/17/2025 [id number] / / [id number] Syn[employer]is [employer] Allian [id number] Dubois Microvascular 3.5mm Ring Pin Protective Cover Jaw Assembly Latex Free - [id number] Implanted:Qty: 1 on 03/17/2021 by Sivakumar Sinclair MD at [facility] Right: Abdomen [employer] Allian [id number] 09/02/2025 [id number] / / [id number] Description:Right Breast Lef t Flap [employer] Allian 2753 Dubois 2.5mm Ring Pin Ultrasonic Doppler 20mhz Policewoman Anastomosis Latex Free - [id number] Implanted:Qty: 1 on 03/17/2021 by Sivakumar Sinclair MD at [facility] Syn[employer]is [employer] Allian [id number] 08/10/2025 [id number] / / [id number] Explanted Type Area Applications Systems Analyst Device Identifier Shelf Expiration Date Model / Serial / Lot Bard Peripheral Vascular [id number] Powerport Clearvue Airguard 8fr 1 Lumen Lightweight Intermediate Latex Free - [id number] Implanted:Qty: 1 on 05/02/2019 by Marie Kaiser MD PhD at [facility] Explanted:Qty: 1 on 05/19/2020 by Marie Kaiser MD PhD at [facility] Right: Chest Bard Peripheral Vascular 08/11/2020 [id number] / / [id number] Tissue Website Designer Explanted:Qty: 2 on 12/19/2019 by Sivakumar Sinclair MD at [facility] miLibris Inc Synovis [employer] Allian [id number] Dubois Microvascular Anastomoses 4mm Policewoman Anastomosis Sterile - [id number] Explanted:Qty: 1 on 03/17/2021 at [facility] Right: Abdomen Syn[employer]is [employer] Allian [id number] 01/19/2022 [id number] / / [id number] Description:Right Side Left Flap Insurance GENERIC COPAY ASSIST BL CHOICE PRF PPO [place] BL CHOICE PRF [place]PO [place] Advance Directives For more information, please contact: [phone] * Full Code (Latest Code Status on File) Date Activated Date Inactivated Comments 03/17/2021 8:04 PM 03/20/2021 6:59 PM * Full Code Date Activated Date Inactivated Comments 10/30/2019 1:43 PM 10/31/2019 5:21 PM Care Teams Marine Meteorologist Relationship Specialty Start Date End Date Loyda Andujar DO [address] [place] [address] PCP - General Family Medicine 06/20/24 Onofre Fay MD [address] [place] [address] Referring Physician Obstetrics and Gynecology 03/14/19 Tyesha Helms MD PhD [address] [place] [address] Radiation Oncologist Radiation Oncology 07/20/19 Bárbara Aguila MD PhD [address] [facility] [address] [place] [address] Medical Oncologist/Mica Machine Operator Medical Oncology 03/03/20 Marie Kaiser MD PhD [address] [facility] [address] [place] [address] Surgeon Surgical Oncology 03/03/20
--- OUTSIDE RECORDS SUMMARY | 2024-10-03 01:50 | XMS_ITS | Clinical Summary ---
Author Organization [facility] Address [address] [place] [address] Care Team Providers Care Land Surveying Survey Worker Name Role Phone Onofre Fay MD Unavailable [phone] Tyesha Helms MD PhD Unavailable Ma, [...] (01/30/2022): Added automatically from request for surgery [id number] History of bilateral mastectomy 05/23/2021 History of left breast cancer 09/20/2020 Overview (09/20/2020): Added automatically from request for surgery [id number] Encounter for follow-up exam ination after completed treatment for malignant neoplasm 03/04/2020 Personal history of irradiation 03/04/2020 Eczema 11/13/2019 Persons encountering health services in other specified circumstances 05/05/2019 Malignant neoplasm of overla pping sites of left breast in female, estrogen receptor negative 05/02/2019 Cancer Staging:Clinical:Stage IIIB(cT4d, cN3c, cM0, G3, ER-, TN-, HER2+) - Signed by Tyesha Helms MD PhD on 12/17/2019 Neoplastic disease 02/06/2019 Overview (09/18/2023): Neoplasm of unsp behavior of bone, soft tissue, and skin;Recorded Elsewhere: No Location: [facility] Source: EHR Chronic: N Practice ID: 0001 Billable Time: 10:30:00 AM Abdominal bloating 03/03/2016 Overview (09/18/2023): Bloating;Recorded Elsewhere: No Location: [facility] Source: EHR Chronic: N Practice ID: 0001 Billable Time: 09:00:00 AM Tobacco use 02/12/2015 Resolved Problems Problem Noted Date Diagnosed Date Resolved Date Disorder of breast 02/25/2019 5 Overview (09/18/2023): Disorder of breast, unspecified;Recorded Elsewhere: No Location: [facility] Source: EHR Chronic: N Practice ID: 0001 Billable Time: 12:17:55 PM Rash 02/17/2019 06/05/2024 Overview (09/18/2023): Rash and other nonspecific skin eruption;Recorded Elsewhere: No Location: [facility] Source: EHR Chronic: N Practice ID: 0001 Billable Time: 10:30:00 AM Abnormal mammogram 02/10/2015 0 Mechanical complication of i ntrauterine contraceptive device 02/03/2015 06/05/2024 Overview (09/18/2023): MALFUNCTION IUD;Recorded Elsewhere: No Location: [facility] Source: EHR Chronic: N Practice ID: 0001 Billable Time: 10:30:00 AM Encounters Date Type Department Care Team Description 09/26/2024 10:15 AM CDT Office Visit [facility] [address] [facility] 6th [place] [address] [place] [address] Sivakumar Sinclair MD Deformity of reconstructed breast (Primary Dx) 07/21/2024 9:00 AM CDT Office Visit [facility] Radiation Oncology [address] [facility] [place] [place] [address] Iva Hernandez PA Malignant neoplasm of overlapping [...] 05/14/2013 - 05/13/2014 PORT REMOVAL 05/19/2020 TISSUE DRAY TRUCK DRIVER REMOVAL 12/13/2019 - 01/12/2020 Bilateral bilateral breast debridement US GUIDED BREAST BIOPSY LYMPH NODE SUPERFICIAL BREAST RELATED 05/14/2018 - 05/13/2019 Left INSERTION OF TISSUE DRAY TRUCK DRIVER AFTER MASTECTOMY 10/13/2019 - 11/11/2019 Bilateral RECONSTRUCTION [...] of b reast, unspecified;Recorded Elsewhere: No Location: [facility] Source: EHR Chronic: N Practice ID: 0001 Billable Time: 12:17:55 PM Mechanical complication of intrauterine contraceptive device 02/03/2015 MALFUNCTION IUD;Elijah rded Elsewhere: No Location: [facility] Source: EHR Chronic: N Practice ID: [...] on file 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 Gender Identity Female 01/23/2021 2:16 PM CDT Sexual Orientation Straight 01/23/2021 2: 16 PM CDT Obstetrics History Last Filed Vital Signs Vital Sign Reading Time Taken Comments Blood Pressure 151/77 06/20/2024 9:05 AM CAE ENGINEER Pulse 64 06/20/2024 9:05 AM CAE ENGINEER Temperature 36.8 C (98.2 F) 06/20/2024 9:05 AM CAE ENGINEER Respiratory Rate 18 06/20/2024 9:05 AM CAE ENGINEER Oxygen Saturation 94% 06/20/2024 9:05 AM CAE ENGINEER Inhaled Oxygen Concentration - - Weight 83.9 [...] 22, 03/20/2021 Medical Devices Implanted Type Area Missile Pad Mechanic Device Identifier Shelf Expiration Date Model / Serial / Lot Sientra Inc Allox2-Fh15e Allox2 15x13.8cm Texture Integrate Port Breast P6.4-7.9cm Full - [id number] Implanted:Qty: 1 on 10/30/2019 by Sivakumar Sinclair MD at [facility] Breast Right: Breast Sientra Inc 09/10/2024 ALLOX2-FH1 5E / / Sientra Inc Allox2-Fh15e Allox2 15x13.8cm Texture Integrate Port Breast P6.4-7.9cm Full - [id number] Implanted:Qty: 1 on 10/30/2019 by Sivakumar Sinclair MD at [facility] Breast Left: Breast Sientra Inc 09/10/2024 ALLOX2-FH1 5E / / Ethicon Endo Surgery Umm3 Ultrapro 6x6in Partial Absorbable Lightweight Flat Mesh Surgical - [id number] Implanted:Qty: 1 on 03/17/2021 by Sivakumar Sinclair MD at [facility] Mesh Abdomen Ethicon Endo Surgery [id number] 09/10/2025 UMM3 / / [id number] Allergan Usa Inc [id number] Alloderm Select 25l95sy Allograft Regenerative Freeze Dried - [id number] - [id number] Implanted:Qty: 1 on 10/30/2019 by Sivakumar Sinclair MD at [facility] Right: Breast Allergan Usa Inc 09/10/2020 [id number] / [id number] / Allergan Usa Inc [id number] Alloderm Select 42g97ff Allograft Regenerative Freeze Dried - [id number] - [id number] Implanted:Qty: 1 on 10/30/2019 by Sivakumar Sinclair MD at [facility] Left: Breast Allergan Usa Inc 09/10/2020 [id number] / [id number] / T-Networks [id number] Bowman Microvascular Anastomoses 1.5mm Customer Success Manager Anastomosis Sterile - [id number] Implanted:Qty: 1 on 03/17/2021 by Sivakumar Sinclair MD at [facility] Left: Axilla T-Networks [id number] 06/24/2025 [id number] / / [id number] Synovis Oasys Water Allian [id number] Bowman Microvascular Anastomoses 1mm Customer Success Manager Anastomosis Sterile - [id number] Implanted:Qty: 1 on 03/17/2021 by Sivakumar Sinclair MD at [facility] Left: Axilla U-NOTEs Oasys Water Allian [id number] 03/17/2025 [id number] / / [id number] Synovis Oasys Water Allian [id number] Bowman Microvascular 3.5mm Ring Pin Protective Cover Jaw Assembly Latex Free - [id number] Implanted:Qty: 1 on 03/17/2021 by Sivakumar Sinclair MD at [facility] Medicine Right: Abdomen U-NOTEs Oasys Water Allian [id number] 09/02/2025 [id number] / / [id number] Description:Right Breast Lef t Flap U-NOTEs Oasys Water Allian 2753 Bowman 2.5mm Ring Pin Ultrasonic Doppler 20mhz Customer Success Manager Anastomosis Latex Free - [id number] Implanted:Qty: 1 on 03/17/2021 by Sivakumar Sinclair MD at [facility] SiO2 Factory Allian [id number] 08/10/2025 2753 / / [id number] Explanted Type Area Missile Pad Mechanic Device Identifier Shelf Expiration Date Model / Serial / Lot Bard Peripheral Vascular [id number] Powerport Clearvue Airguard 8fr 1 Lumen Lightweight Intermediate Latex Free - [id number] Implanted:Qty: 1 on 05/02/2019 by Marie Kaiser MD PhD at [facility] Explanted:Qty: 1 on 05/19/2020 by Marie Kaiser MD PhD at [facility] Right: Chest Bard Peripheral Vascular 08/11/2020 [id number] / / [id number] Director Of Security Explanted:Qty: 2 on 12/19/2019 by Sivakumar Sinclair MD at [facility] Virtual Intelligence Technologies Inc U-NOTEs Oasys Water Allian [id number] Bowman Microvascular Anastomoses 4mm Customer Success Manager Anastomosis Sterile - [id number] Explanted:Qty: 1 on 03/17/2021 at [facility] Right: Abdomen Synovis [employer] Allian [id number] 01/19/2022 [id number] / / [id number] Description:Right Side Left Flap Insurance GENERIC COPAY ASSIST BL CHOICE PRF PPO [place] Advance Directives For more information, please contact: [phone] * Full Code (Latest Code Status on File) Date Activated Date Inactivated Comments 03/17/2021 8:04 PM 03/20/2021 6:59 PM * Full Code Date Activated Date Inactivated Comments 10/30/2019 1:43 PM 10/31/2019 5:21 PM Care Teams Land Surveying Survey Worker Relationship Specialty Start Date End Date Loyda Andujar DO [address] [place] [address] PCP - General Family Medicine 06/20/24 Onofre Fay MD [address] [place], [place] [address] Referring Physician Obstetrics and Gynecology 03/14/19 Tyesha Helms MD PhD [address] [place] [address] Radiation Oncologist Radiation Oncology 07/20/19 Bárbara Aguila MD PhD [address] [facility] [address] [place], [place] [id number] Medical Oncologist/Hand Alterations Tailor Medical Oncology 03/03/20 Marie Kaiser MD PhD [address] [facility] [address] [place] [address] Surgeon Surgical Oncology 03/03/20
--- OUTSIDE RECORDS SUMMARY | 2024-10-03 01:50 | XMS_ITS | Encounter Summary ---
Author Organization [facility] Address [address] [place] [address] Care Team Providers Care Hacksaw Inspector Name Role Phone Onofre Fay MD Unavailable [phone] Luc Godwin MD Primary Care Provider [phone] Tyesha Helms MD PhD Unavailable [phone] Ma, Bárbara Mcmullen MD PhD Unavailable [phone] Marie Kaiser MD PhD Unavaila ble Sudhir Way DO Primary Care Provider [phone] Loyda Andujar DO Primary Care Provider [phone] Encounter Details Date Type Department Care Team (Late st Contact Info) Description 10/31/2019 Documentation [facility] Case Management [address] [place] [address] Marvin Ahmadi, RN Social History Tobacco Use [...] on file 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 No notification/staff of specific discharge needs requiring intervention from the Pallet Rectifier, however, Discharge Summary included Home Health and Patient was contacted to verify instruction regarding drains c ompleted prior to discharge and patient comfortable with instructions and empying the drains. Patient has follow-up appointment on Provided patient with consulting manager's name and number to call should [...] documented as of this encounter Care Teams Hacksaw Inspector Relationship Specialty Start Date End Date Luc Godwin MD [address] [place] [address] PCP - General Internal Medicine 03/20/19 02/16/[address] DO [address] [facility] [address] [place] [address] PCP - General Family Medicine 02/17/22 06/19/24 Loyda Andujar DO [address] [facility] [address] PCP - General Family Medicine 06/20/24 Onofre Fay MD [address] [place] [address] Referring Physician Obstetrics and Gynecology 03/14/19 Tyesha Helms MD PhD [address] [place] [address] Radiation Oncologist Radiation Oncology 07/20/19 Bárbara Aguila MD PhD [address] [facility] [address] [place] [address] Medical Oncologist/Tie Layer Medical Oncology 03/03/20 Marie Kaiser MD PhD [address] [facility] [address] [place] [address] Surgeon Surgical Oncology 03/03/20 documented as of this encounter
--- OUTSIDE RECORDS SUMMARY | 2024-10-03 01:50 | XMS_ITS | Clinical Summary ---
Author Organization [facility] Address [address] [place] [address] Phone Care Team Providers Care Application Internship Name Role Phone Luc Godwin MD Primary Care Provider [phone] Allergies Active Allergy Reactions Criticality Noted Date [...] Provider: Rebecca Santillan MD [address] [place] [address] Other: Problem Noted Date Diagnosed Date Tobacco [...] (1 - 1-dose 75+ series) 2037 Insurance [facility] BLUE ACCESS/TRUE BLUE PPO Care Teams Application Internship Relationship Specialty Start Date End Date Luc Godwin MD [address] [place] [address] PCP - General Internal Medicine 02/12/15
[2024-10-03] MEDS: LACTATED RINGERS 1,000 ML 30 ML IV CONT ×2 (13:30→15:42)
[2024-10-03] MEDS: ACETAMINOPHEN 500 MG TABLET 1000 MG PO (13:30)
[2024-10-03] MEDS: KETOROLAC 15 MG/ML VIAL (*BKC) IV PUSH (13:30)
--- NOTE | 2024-10-03 14:23 | P.PNAN_ITS ---
Anes - Initial Pre Proc Eval Procedure: Operation Date: 10/03/24 14:30 Proposed Procedures p Laparoscopic Cholecystectomy - Vane Cooley MD Date/Time: 10/03/24 14:23 Surgeon: Vane Cooley MD Pre Op Diagnosis: Chronic calculous cholecystitis Patient Data Age: 64 Gender: F Height: 1.63 m Weight: 82.7 kg Allergies Allergy/AdvReac Type Severity Reaction Status Date / Time Penicillins Allergy Unknown unknown Verified 10/02/24 13:37 chlorhexidine Allergy Rash Verified 10/02/24 13:37 Home Medications ?Medication ?Instructions ?Recorded ?Confirmed ?Type atenolol 50 mg-chlorthalidone 25 0.5 tablet PO DAILY #90 tabs 02/27/23 10/02/24 Rx mg tablet gemfibrozil 600 mg tablet 600 mg PO BID #180 tabs 12/14/23 10/02/24 Rx cholecalciferol (vitamin D3) 10 10 mcg PO DAILY 06/24/24 10/02/24 History mcg (400 unit) capsule (Vitamin D3) vitamin B complex 1 tablet PO DAILY 06/24/24 10/02/24 History citalopram 20 mg tablet 20 mg PO DAILY #90 tabs 07/17/24 10/02/24 Rx aspirin 81 mg chewable tablet 81 mg PO DAILY #90 tabs 09/11/24 10/02/24 Rx lovastatin 10 mg tablet 10 mg PO QPM #90 tabs 09/11/24 10/02/24 Rx multivitamin (Daily Multi-Vitamin 1 tablet PO DAILY 10/02/24 10/02/24 History tablet) omega 5-cyr-cdp-fish oil 1,000 mg 2 cap PO .noon 10/02/24 10/02/24 History (120 mg-180 mg) capsule (Fish Oil) Patient hx anesthesia problems: none Family hx anesthesia problems: none Results Review: All pre-operative results and documents have been reviewed as part of the pre- operative evaluation. [facility] Past Medical History Medical History Malignant neoplasm of breast Cigarette nicotine dependence, uncomplicated Essential (primary) hypertension Mixed hyperlipidemia Surgical History Surgical History Hx of breast reconstruction 03/17/2021 H/O mastectomy History of section Family History Family History Sibling Hypertension Mother Non-Hodgkin lymphoma Hypertension Father Cerebrovascular accident Acute myocardial infarction Grandparent Non-Hodgkin lymphoma Grandparent Cerebrovascular accident Heart problem Social History Social History Years smoked: 10 Smoking status: Current every day smoker Tobacco type: cigarettes Alcohol intake: former Substance use: never Substance use type: does not use Do You Feel Safe in your Home?: Yes Lack of Transportation: No Lack of Food: Never True Current Housing: I Have Housing Concerned About Future Housing: No Difficulty Paying Gas/Electric Bills: No Difficulty Paying for Meds: No Currently Unemployed: No Education: High School Diploma/GED Difficulty w/ Childcare or Family Care: No Living arrangements: with family Spiritual care concerns: No Anes - Eval Final PreProcedure Day of Procedure 10/03/24 14:23 Patient weight: obese Heart: regular rate and rhythm Lungs: decreased breath sounds Airway: Mallampati scale class II Neurological: alert and oriented Last oral intake: >/= 8 hours ASA classification: III Emergent: no Anesthetic plan: proceed Anesthesia type and monitoring: general ETT and standard monitoring Results Review: All pre-operative results and documents have been reviewed as part of the pre- operative evaluation. Informed Consent: The patient's anesthetic plan and its attendant risks and benefits were discussed with the patient/family/POA. Questions were solicited and answers prov ided to the satisfaction of the patient/family/POA.
--- NOTE | 2024-10-03 14:38 | WPDHPUPDATE1 ---
History and Physical Update Update Date/Time: 10/03/24 14:38 History and Physical has been reviewed, including an updated exam of the patient. There are NO changes in the patient's condition. Risks, benefits, and alternatives have been discussed and questions answered. Patient agrees to proceed with procedure.
[2024-10-03] MEDS: ceFAZolin 2 GM/D5W 50 ML 2 GM/50 ML BAG IVPB (14:42)
[2024-10-03] MEDS: BUPIVACAINE/EPINEPHRINE 0.5% 50 ML VIAL 30 ML INFILTRATE (14:54)
--- NOTE | 2024-10-03 15:45 | P.OP_ITS ---
Procedure Note - Detailed Date of Procedure 10/03/24 Pre-op Diagnosis Acute cholecystitis, cholelithias Post-op Diagnosis Same Procedure Performed Laparoscopic cholecystectomy Surgeon Vane Cooley MD Anesthesia General Indications 64-year-old female presented to the office complaining of postprandial right u pper quadrant abdominal pain associated with nausea and vomiting. Workup including imaging significant for cholecystitis, cholelithiasis. Findings Cholecystitis with cholelithiasis Description of Procedure The patient was taken to the operating room placed in the supine position. After adequate induction of general anesthesia, the patient was prepped and draped in normal sterile fashion. A time-out was then performed to verify the patient's identity as well as the procedure being performed. I then made a 5 mm incision in the infraumbilical region. Through this, a Veress needle was placed into the peritoneal cavity and CO2 gas was then insufflated. After adequate pneumoperitoneum was achieved, the Veress needle was removed and a 5 mm optiview trocar was placed through this incision under direct visualization. I then placed the laparoscope through this trocar site and under direct visualization placed a further 12 mm subxiphoid port as well as 2 additional 5 mm ports in the right upper abdomen. The gallbladder was then identified and was noted to be inflamed and distended. I was able to place a grasper at the dome of the gallbladder and this was retracted anterior and cephalad up over the liver. A 2nd retractor was then placed at the infundibulum and retracted laterally, this allowed visualization of the triangle of Calot. I then was able to visualize the cystic duct in its entirety from its proximal insertion into the gallbladder, to its distal junction with the common hepatic/common bile duct junction. At this point, I carefully skeletonized the proximal cystic duct with the [place] dissector. I then clipped and transected the proximal cystic duct. Next I visualized the cystic artery. Again the artery was skeletonized, clipped, and transected. I then used the Bovie cautery to take down the peritoneal attachments of the gallbladder off the liver bed. This was somewhat difficult given the amount of inflammation in the posterior space. Once the gallbladder specimen was completely detached, an endo-pouch was placed through the 12 mm port site. I then placed the gallbladder specimen into the Endo pouch and removed the endo-pouch from the 12 mm port site. The specimen will now be sent to pathology for further review. I then copiously irrigated the right upper quadrant. Some mild oozing was noted in the liver bed and this was controlled with the bovie cautery. I then placed some hemostatic powder in the liver bed. Hemostasis was noted in the liver bed, the clips were noted to be in good position on both the cystic duct stump and the cystic artery stump. No other pathology was noted in the right upper quadrant. I then moved the laparo scope to the subxiphoid port. No iatrogenic injury or other pathology was noted in the lower abdomen. I then closed the 12 mm trocar site under direct visualization using the Robi cone and 0 Vicryl suture. At this point, the abdomen was desufflated and all ports removed. All port sites were then closed with 4.O Monocryl subcuticular sutures. Dermabond was placed on each incision. The patient tolerated the procedure well, was extubated in the operating room postoperative and will be transferred to the recovery room in stable condition Estimated Blood Loss 5 Drains No Packing No Pathology Yes Complications No immediate complications Condition Stable Disposition PACU [facility] Billing Surgery - Charge Forward: Surgery Billing
[2024-10-03] MEDS: ONDANSETRON INJ 4 MG/2 ML VIAL IV PUSH (16:25)
[2024-10-03] MEDS: SCOPOLAMINE 1 MG PATCH 1 PATCH TRANSDERM (16:30)
[2024-10-03] MEDS: diphenhydrAMINE HCl INJ 50 MG/ML VIAL 12.5 MG IV PUSH (16:37)
[2024-10-03] MEDS: fentaNYL CITRATE INJ (*CRX) 100 MCG/2 ML VIAL 25 MCG IV PUSH ×2 (16:42→16:44)
[2024-10-03] MEDS: oxyCODONE HCL (*CRX) 5 MG TAB IR PO (17:37)
== END 2024-10-03 18:15 | disposition home or self-care (01) ==
PROVIDERS: PCP Family Medicine; Visit Provider Surgery
PROC: 0FT44ZZ Resection of Gallbladder, Percutaneous Endoscopic Approach (ICD-10-PCS; CPT 47562; principal; 2024-10-03 14:30)
DX: K80.00 Calculus of gallbladder with acute cholecystitis without obstruction (principal); F17.210 Nicotine dependence, cigarettes, uncomplicated; E66.9 Obesity, unspecified; Z68.30 Body mass index [BMI] 30.0-30.9, adult
CPT/HCPCS: 47562; 88304; A9270; J0360; J0690; J1100; J1200; J1885; J2003; J2250; J2405; J2704; J3010; J7030; J7120

== ENCOUNTER 2024-11-05 08:15 | Outpatient (CLI) | payer BC, SELFPAY ==
[2024-11-05 19:12] LABS: Alanine Aminotransferase 35 U/L (6-35); Albumin Level 4.7 g/dL (3.5-5.1); Alkaline Phosphatase 76 U/L (38-126); Anion Gap 8 mmol/L (4-12); Aspartate Amino Transferase 54 U/L (14-36); Bilirubin,Total 0.6 mg/dL (0.2-1.3); Blood Urea Nitrogen 10 mg/dL (7-17); Calcium 10.1 mg/dL (8.4-10.2); Carbon Dioxide 28 mmol/L (22-30); Chloride 104 mmol/L (98-107); Estimated Glomerular Filt Rate > 60; Glucose 77 mg/dL (65-110); Potassium 3.9 mmol/L (3.4-5.0); Sodium 140 mmol/L (137-145); Total Protein 7.5 g/dL (6.3-8.2)
== END 2024-11-05 08:16 | disposition home or self-care (01) ==
LOC: ANHGOSHLAB 08:16
PROVIDERS: PCP Family Medicine; Visit Provider Family Medicine
DX: R79.89 Other specified abnormal findings of blood chemistry (principal); Z90.49 Acquired absence of other specified parts of digestive tract
CPT/HCPCS: 36415; 80053

== ENCOUNTER 2025-01-19 02:32 | Day surgery (SDC) | payer BC, SELFPAY ==
[2025-01-06 12:52] VITALS: BMI 30.4
--- OUTSIDE RECORDS SUMMARY | 2025-01-19 02:34 | XMS_ITS | Encounter Summary ---
Author Organization [facility] Healthcare Address [address] [place] [address] Care Team Providers Care Manager Merchandising Name Role Phone Onofre Fay MD Unavailable [phone] Luc Godwin MD Primary Care Provider [phone] Tyesha Helms MD PhD Unavailable [phone] Ma, Bárbara Mcmullen MD PhD Unavailable Marie Kaiser MD PhD Unavaila ble Sudhir Way DO Primary Care Provider [phone] Loyda Andujar DO Primary Care Provider [phone] Encounter Details Date Type Department Care Team (Late st Contact Info) Description 10/31/2019 Documentation [facility] Case Management [address] [place] [address] Marvin Ahmadi, RN Social History Tobacco Use Types Packs/Day Years Used Date Smoking Tobacco: Every Day Cigarettes 0.5 47.7 Started: 1975 Smokeless Tobacco: Never Alcohol Use [...] on file 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 No notification/staff of specific discharge needs requiring intervention from the Ward Ma[facility], however, Discharge Summary included Home Health and Patient was contacted to verify instruction regarding drains c ompleted prior to discharge and patient comfortable with instructions and empying the drains. Patient has follow-up appointment on Provided patient with meat and seafood manager's name and number to call should [...] documented as of this encounter Care Teams Manager Merchandising Relationship Specialty Start Date End Date Luc Godwin MD [address] [place] [address] PCP - General Internal Medicine 03/20/19 02/16/[address] DO [address] [facility] [address] [place] [address] PCP - General Family Medicine 02/17/22 06/19/24 Loyda Andujar DO [address] [facility] [place] [address] PCP - General Family Medicine 06/20/24 Onofre Fay MD [address] [place] [address] Referring Physician Obstetrics and Gynecology 03/14/19 Tyesha Helms MD PhD [address] [place] [address] Radiation Oncologist Radiation Oncology 07/20/19 Bárbara Aguila MD PhD [address] [facility] [address] [place] [address] Medical Oncologist/Molding Manager Medical Oncology 03/03/20 Marie Kaiser MD PhD [address] [facility] [address] [place] [address] Surgeon Surgical Oncology 03/03/20 documented as of this encounter
--- OUTSIDE RECORDS SUMMARY | 2025-01-19 02:34 | XMS_ITS | Clinical Summary ---
Author Organization [facility] Address [address] [place] [address] Phone Care Team Providers Care Biomedical Equipment Specialist Name Role Phone Luc Godwin MD Primary Care Provider [phone] Allergies Active Allergy Reactions Criticality Noted Date [...] Provider: Rebecca Santillan MD [address] [place] [address] Other: Problem Noted Date Diagnosed Date Tobacco [...] 9:53 AM CDT Height 162.6 cm (5' 4) 02/12/2015 9:53 AM CDT Body Mass Index [...] CANCER SCREENING 02/09/2016 02/08/2015 INFLUENZA VACCINE (#1) 2024 RSV VACCINE (60+ or ) (1 - 1-dose 75+ series) [address] [facility] BLUE ACCESS/TRUE BLUE PPO Care Teams Biomedical Equipment Specialist Relationship Specialty Start Date End Date Luc Godwin MD [address] [place] [id number] PCP - General Internal Medicine 02/12/15
--- OUTSIDE RECORDS SUMMARY | 2025-01-19 02:34 | XMS_ITS ---
Author Organization [facility] Address [address] [place] [address] Care Team Providers Care Central Control Room Operator Name Role Phone Onofre Fay MD Unavailable [phone] Tyesha Helms MD PhD Unavailable [phone] Ma, Bárbara Mcmullen MD PhD Unavailable [phone] Marie Kaiser MD PhD Unavaila ble Loyda Andujar DO Primary Care Provider Active Problems Problem Noted Date Diagnosed Date Mixed hyperlipidemia 12/26/2024 Assessment & Plan (12/26/2024 11:52 AM CDT): Stable continue lovastatin Superior mesenteric artery stenosis 10/16/2024 Assessment & Plan (12/26/2024 11:52 AM CDT): Celiac and SMA stenosis found while undergoing workup for abdominal pain with subsequent cholecystectomy. Overall does not have any postprandial abdominal pain or unintended weight loss. Recommend continued risk factor modification with ASA and statin therapy. Follow up in 1 year with repeat noninvasives testing. Assessment & Plan (10/16/2024 12:58 PM CDT): Will proceed with mesenteric duplex in 2-3 months. Patient to follow-up thereafter for discussion of results. Lymphedema of left arm 06/16/2022 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 Overview (01/30/2022): Added automatically from request for surgery [id number] History of bilateral mastectomy 05/23/2021 History of left breast cancer 09/20/2020 Overview (09/20/2020): Added automatically from request for surgery [id number] Encounter for follow-up exam ination after completed treatment for malignant neoplasm 03/04/2020 Personal history of irradiation 03/04/2020 Eczema 11/13/2019 Persons encountering health services in other specified circumstances 05/05/2019 Malignant neoplasm of overla pping sites of left breast in female, estrogen receptor negative 05/02/2019 Cancer Staging:Clinical:Stage IIIB(cT4d, cN3c, cM0, G3, ER-, VA-, HER2+) - Signed by Tyesha Helms MD PhD on 12/17/2019 Neoplastic disease 02/06/2019 Overview (09/18/2023): Neoplasm of unsp behavior of bone, soft tissue, and skin;Recorded Elsewhere: No Location: [facility] Source: EHR Chronic: N Practice ID: [id number] Billable Time: 10:30:00 AM Abdominal bloating 03/03/2016 Overview (09/18/2023): Bloating;Recorded Elsewhere: No Location: [facility] Source: EHR Chronic: N Practice ID: [...] (PERJETA)pertu zumab (PERJETA) IVPBtrastuzuma b-anns (KANJINTI)tras tuzumab-anns ([facility]) IVPB Therapy Complete Bárbara Aguila MD PhD [...] Disorder of breast, unspecified;Recorded Elsewhere: No Location: [facility] Source: EHR Chronic: N Practice ID: [id number] Billable Time: 12:17:55 PM Rash 02/17/2019 06/05/2024 Overview (09/18/2023): Rash and other nonspecific skin eruption;Recorded Elsewhere: No Location: [facility] Source: EHR Chronic: N Practice ID: [id number] Billable Time: 10:30:00 AM Abnormal mammogram 02/10/2015 0 Mechanical complication of i ntrauterine contraceptive device 02/03/2015 06/05/2024 Overview (09/18/2023): MALFUNCTION IUD;Recorded Elsewhere: No Location: [facility] Source: EHR Chronic: N Practice ID: [id number] Billable Time: 10:30:00 AM
--- OUTSIDE RECORDS SUMMARY | 2025-01-19 02:34 | XMS_ITS | Clinical Summary ---
Author Organization [facility] Address [address] [place] [address] Care Team Providers Care Chief Compliance Officer Name Role Phone Onofre Fay MD Unavailable Tyesha Helms MD PhD Unavailable [phone] Ma, Bárbara Mcmullen MD PhD Unavailable Marie Kaiser MD PhD Unavaila ble Loyda Andujar DO Primary Care Provider [phone] Allergies Active Allergy Reactions Criticality Noted Date [...] (20 mg total) by mouth daily Active benzonatate (TESSALON) 200 mg capsule TAKE 1 CAPSULE BY MOUTH THREE TIMES DAILY NEEDED FOR COUGH 12/18/2024 Active Active Problems Problem Noted Date Diagnosed [...] (01/30/2022): Added automatically from request for surgery [id number] History of bilateral mastectomy 05/23/2021 History of left breast cancer 09/20/2020 Overview (09/20/2020): Added automatically from request for surgery [id number] Encounter for follow-up exam ination after completed treatment for malignant neoplasm 03/04/2020 Personal history of irradiation 03/04/2020 Eczema 11/13/2019 Persons encountering health services in other specified circumstances 05/05/2019 Malignant neoplasm of overla pping sites of left breast in female, estrogen receptor negative 05/02/2019 Cancer Staging:Clinical:Stage IIIB(cT4d, cN3c, cM0, G3, ER-, OK-, HER2+) - Signed by Tyesha Helms MD PhD on 12/17/2019 Neoplastic disease 02/06/2019 Overview (09/18/2023): Neoplasm of unsp behavior of bone, soft tissue, and skin;Recorded Elsewhere: No Location: [facility] Source: EHR Chronic: N Practice ID: [id number] Billable Time: 10:30:00 AM Abdominal bloating 03/03/2016 Overview (09/18/2023): Bloating;Recorded Elsewhere: No Location: [facility] Source: EHR Chronic: N Practice ID: [id number] Billable Time: 09:00:00 AM Tobacco use 02/12/2015 Resolved Problems Problem Noted Date Diagnosed Date Resolved Date Disorder of breast 02/25/2019 5 Overview (09/18/2023): Disorder of breast, unspecified;Recorded Elsewhere: No Location: [facility] Source: EHR Chronic: N Practice ID: [id number] Billable Time: 12:17:55 PM Rash 02/17/2019 06/05/2024 Overview (09/18/2023): Rash and other nonspecific skin eruption;Recorded Elsewhere: No Location: [facility] Source: EHR Chronic: N Practice ID: [id number] Billable Time: 10:30:00 AM Abnormal mammogram 02/10/2015 0 Mechanical complication of i ntrauterine contraceptive device 02/03/2015 06/05/2024 Overview (09/18/2023): MALFUNCTION IUD;Recorded Elsewhere: No Location: [facility] Source: EHR Chronic: N Practice ID: [id number] Billable Time: 10:30:00 AM Encounters Date Type Department Care Team Description 12/24/2024 9:00 AM CDT Office Visit [facility] [place] [address] [place] [address] Yolis Stephens MD Superior mesenteric artery stenosis (Primary Dx); Mixed hyperlipidemia 12/24/2024 Orders Only [facility] at [address] [place] [address] Yolis Stephens MD Superior mesenteric artery stenosis (Primary Dx) 12/15/2024 8:00 AM CDT Ancillary Procedure [facility] Ve[facility] Surgery at [address] [place] [address] Superior mesenteric artery stenosis 12/11/2024 Orders Only [facility]ascular and Vein Surgery [address] [place] [address] Yolis Stephens MD Superior mesenteric artery stenosis (Primary Dx) from Last 3 Months Immunizations Immunization Administration Dates Next Due Influenza, Quadrivalent, Rec ombinant, Egg Free, Preservative Free, Intramuscular 02/10/2022 Influenza, Quadrivalent, Spl it, Preservative Free, Intramuscular 03/20/2021 Surgical History Surgery Date Site/Laterality Comments BREAST BIOPSY 2013, 2015 Right SECTION 1983 TUBAL LIGATION 05/14/1983 - 05/13/1984 same time as c section BREAST BIOPSY 04/09/2019 Right PORTACATH PLACEMENT 04/13/2019 - 05/13/2019 Right COLONOSCOPY 05/14/2013 - 05/13/2014 PORT REMOVAL 05/19/2020 TISSUE EMERGENCY OPERATOR REMOVAL 12/13/2019 - 01/12/2020 Bilateral bilateral breast debridement US GUIDED BREAST BIOPSY LYMPH NODE SUPERFICIAL BREAST RELATED - BILATERAL 05/14/2018 - 05/13/2019 Left INSERTION OF TISSUE EMERGENCY OPERATOR AFTER MASTECTOMY 10/13/2019 - 11/11/2019 Bilateral RECONSTRUCTION BREAST W/ TRAM FLAP 03/14/2021 - 04/12/2021 Bilateral FREE FLAP DEEP INFERIOR EPIGASTRIC PERFORATORS with synthetic mesh in abdominal wall BREAST BIOPSY 02/12/2015 Right Medical History Medical History Date Comments Hypertension Breast CA (HCC) Hx of migraines Fatty liver History of chemotherapy started 05/19 and last dose 09/07 PONV (postoperative nausea a nd vomiting) 1981 x1 s/p Hx of radiation therapy started on December 11 and did on December 14 and 2019 Motion sickness Disorder of breast 02/25/2019 Disorder of b reast, unspecified;Recorded Elsewhere: No Location: [facility] Source: EHR Chronic: N Practice ID: [id number] Billable Time: 12:17:55 PM Mechanical complication of intrauterine contraceptive device 02/03/2015 MALFUNCTION IUD;Elijah rded Elsewhere: No Location: [facility] Source: EHR Chronic: N Practice ID: [id number] [...] on file Legal Sex Female 9:01 AM MANAGER ASSET MANAGEMENT Gender Identity Female 01/23/2021 2:16 PM CDT Sexual Orientation Straight 01/23/2021 2: 16 PM CDT Obstetrics History Last Filed Vital Signs Vital Sign Reading Time Taken Comments Blood Pressure 173/83 12/24/2024 8:53 AM CDT Pulse 81 12/24/2024 8:53 AM CDT Temperature 36.8 C (98.2 F) 06/20/2024 9:05 AM MANAGER ASSET MANAGEMENT Respiratory Rate 18 06/20/2024 9:05 AM MANAGER ASSET MANAGEMENT Oxygen Saturation 95% 12/24/2024 8:53 AM CDT Inhaled Oxygen Concentration - - Weight 80.3 kg (177 lb) 12/24/2024 8:53 AM CDT Height 162.6 cm (5' 4) 12/24/2024 8:53 AM CDT Body Mass Index 30.38 12/24/2024 8:53 AM CDT Plan of Treatment Health Maintenance [...] (1 of 2) 2012 Influenza Vaccine (#1) 2025 02/10/2022, 2020 Medical Devices Implanted Type Area Executive Vice President Business Development Device Identifier Shelf Expiration Date Model / Serial / Lot Sientra Inc Allox2-[id number] Allox2 15x13.8cm Texture Integrate Port Breast P6.4-7.9cm Full - [id number] Implanted:Qty: 1 on 10/30/2019 by Sivakumar Sinclair MD at [facility] Breast Right: Breast Sientra Inc 09/10/2024 ALLOX2-FH1 5E / / Sientra Inc Allox2-Fh15e Allox2 15x13.8cm Texture Integrate Port Breast P6.4-7.9cm Full - [id number] Implanted:Qty: 1 on 10/30/2019 by Sivakumar Sinclair MD at [facility] Breast Left: Breast Sient[employer] Inc 09/10/2024 ALLOX2-FH1 5E / / Ethicon Endo Surgery Umm3 Ultrapro 6x6in Partial Absorbable Lightweight Flat Mesh Surgical - [id number] Implanted:Qty: 1 on 03/17/2021 by Sivakumar Sinclair MD at [facility] Mesh Abdomen Ethicon Endo Surgery [id number] 09/10/2025 [id number] / / [id number] Allergan Usa Inc [id number] Alloderm Select [id number] Allograft Regenerative Freeze Dried - [id number] - [id number] Implanted:Qty: 1 on 10/30/2019 by Sivakumar Sinclair MD at [facility] Right: Breast [employer] 09/10/2020 [id number] / [id number] / Allergan [employer] [id number] Alloderm Select [id number] Allograft Regenerative Freeze Dried - [id number] - [id number] Implanted:Qty: 1 on 10/30/2019 by Sivakumar Sinclair MD at [facility] Left: Breast [employer]gan [employer] 09/10/2020 [id number] / [id number] / Synovis Conviva Allian [id number] [place] Microvascular Anastomoses 1.5mm Sheet Manufacturing Supervisor Anastomosis Sterile - [id number] Implanted:Qty: 1 on 03/17/2021 by Sivakumar Sinclair MD at [facility] Left: Axilla Synovis Conviva Allian [id number] 06/24/2025 [id number] / / [id number] Synovis Conviva Allian [id number] [place] Microvascular Anastomoses 1mm Sheet Manufacturing Supervisor Anastomosis Sterile - [id number] Implanted:Qty: 1 on 03/17/2021 by Sivakumar Sinclair MD at [facility] Left: Axilla Synovis Conviva Allian [id number] 03/17/2025 [id number] / / [id number] Synovis Conviva Allian [id number] [place] Microvascular 3.5mm Ring Pin Protective Cover Jaw Assembly Latex Free - [id number] Implanted:Qty: 1 on 03/17/2021 by Sivakumar Sinclair MD at [facility] Right: Abdomen Synovis Micro Beyond Oblivion Allian [id number] 09/02/2025 [id number] / / [id number] Description:Right Breast Lef t Flap Synovis Conviva Allian 2753 [place] 2.5mm Ring Pin Ultrasonic Doppler 20mhz Sheet Manufacturing Supervisor Anastomosis Latex Free - [id number] Implanted:Qty: 1 on 03/17/2021 by Sivakumar Sinclair MD at [facility] Synovis Conviva Allian [id number] 08/10/2025 [id number] / / [id number] Explanted Type Area Executive Vice President Business Development Device Identifier Shelf Expiration Date Model / Serial / Lot Bard Peripheral Vascular [id number] Powerport Clearvue Airguard 8fr 1 Lumen Lightweight Intermediate Latex Free - [id number] Implanted:Qty: 1 on 05/02/2019 by Marie Kaiser MD PhD at [facility] Explanted:Qty: 1 on 05/19/2020 by Marie Kaiser MD PhD at [facility] Right: Chest Bard Peripheral Vascular 08/11/2020 [id number] / / [id number] Tissue Marksmanship Instructor Explanted:Qty: 2 on 12/19/2019 by Sivakumar Sinclair MD at [facility] [employer] Conviva Allian [id number] [place] Microvascular Anastomoses 4mm Sheet Manufacturing Supervisor Anastomosis Sterile - [id number] Explanted:Qty: 1 on 03/17/2021 at [facility] Right: Abdomen [employer] Conviva Allian [id number] 01/19/2022 [id number] / / [id number] Description:Right Side Left Flap Procedures Procedure Name Priority Date/Time Associated Diagnosis Comments US DOPPLER ABDOMINAL VESSELS COMPLETE Schedule Routine, Read Routine (OP Routine) 12/15/2024 8:21 AM CDT Superior mesenteric artery stenosis from Last 3 Months Results * US Doppler Abdominal Vessels Complete (12/15/2024 8:21 AM CDT) Anatomical Region Laterality Modality Vascular N/A Ultrasound 12/15/2024 8:00 AM CDT Narrative 12/17/2024 9:44 AM CDT Vascular & Vein Surgery [address] [place] [address]. [place] [address] Mesenteric Artery Duplex Ultrasound Report Patient Name: LAKSHMI QUILES B : 1960 (64y 4m) Study Date: 12/15/2024 8:00:12 AM Gender: F Supervisor Fishing: REYMUNDO Location: [facility] Ref Provider: YOLIS STEPHENS Quality: Adequate Order Provider: YOLIS STEPHENS PROCEDURES: Arterial Report: Duplex ultrasound imaging of the mesenteric arteries was performed to determine absence or presence of stenosis, aneurysm, stent placement or other pathological conditions. Patient was NPO over 8 hours. INDICATIONS: SMA stenosis found on CTA. HISTORY: HLD. Current smoker. COMPARISONS: Prior CTA @ [place] 09/11/24: SMA 50-75%. MEASUREMENTS: Mesenteric Measurements Value Aorta Prx PSV 64 cm/sec Celiac Artery PSV 248 cm/sec Celiac EDV 38 cm/sec Hepatic Prx PSV 131 cm/sec Hepatic Prx EDV 21 cm/sec Splenic Prx PSV 162 cm/sec Splenic Prx EDV 37 cm/sec SMA Prx PSV 430 cm/sec SMA Prx EDV 68 cm/sec SMA Mid PSV 108 cm/sec SMA Mid EDV 13 cm/sec ODALIS Prx PSV 119 cm/sec ODALIS Prx EDV cm/sec FINDINGS: Mesenteric Artery: Elevated velocities in the celiac artery, superior mesenteric artery at the origin and proximal superior mesenteric artery. CONCLUSIONS: 1. There is a more than 70% stenosis in the celiac artery and superior mesenteric artery. ATTESTATION: I have reviewed and interpreted the pertinent images and measurements of this study. I attest to the conclusions in the final report that is provided above. Electronically Signed By: Yolis Stephens MD 12/17/2024 9:36:12 AM CDT Procedure Note Yolis Stephens MD - 12/17/2024 Vascular & Vein Surgery [address] [place] [id number] Mesenteric Artery Duplex Ultrasound Report Patient Name: LAKSHMI QUILES B : 1960 (64y 4m) Study Date: 12/15/2024 8:00:12 AM Gender: F Supervisor Fishing: REYMUNDO Location: [facility] Ref Provider: YOLIS STEPHENS Quality: Adequate Order Provider: YOLIS STEPHENS PROCEDURES: Arterial Report: Duplex ultrasound imaging of the mesenteric arteries was performed todetermine absence or presence of stenosis, aneurysm, stent placement or other pathologicalconditions. Patient was NPO over 8 hours. INDICATIONS: SMA stenosis found on CTA. HISTORY: HLD. Current smoker. COMPARISONS: Prior CTA @ [place] 09/11/24: SMA 50-75%. MEASUREMENTS: Mesenteric Measurements Value Aorta Prx PSV 64 cm/sec Celiac Artery PSV 248 cm/sec Celiac EDV 38 cm/sec Hepatic Prx PSV 131 cm/sec Hepatic Prx EDV 21 cm/sec Splenic Prx PSV 162 cm/sec Splenic Prx EDV 37 cm/sec SMA Prx PSV 430 cm/sec SMA Prx EDV 68 cm/sec SMA Mid PSV 108 cm/sec SMA Mid EDV 13 cm/sec ODALIS Prx PSV 119 cm/sec ODALIS Prx EDV cm/sec FINDINGS: Mesenteric Artery: Elevated velocities in the celiac artery, superior mesenteric artery atthe origin and proximal superior mesenteric artery. CONCLUSIONS: 1. There is a more than 70% stenosis in the celiac artery and superiormesenteric artery. ATTESTATION: I have reviewed and interpreted the pertinent images and measurements ofthis study. I attest to the conclusions in the final report that is provided above. Electronically Signed By: Yolis Stephens MD 12/17/2024 9:36:12 AM CDT Yolis Stephens MD [facility] PROCEDURES Final Result from Last 3 Months Insurance [employer] [facility] [place] Advance Directives For more information, please contact: [phone] * Full Code (Latest Code Status on File) Date Activated Date Inactivated Comments 03/17/2021 8:04 PM 03/20/2021 6:59 PM * Full Code Date Activated Date Inactivated Comments 10/30/2019 1:43 PM 10/31/2019 5:21 PM Care Teams Chief Compliance Officer Relationship Specialty Start Date End Date Loyda Andujar DO [employer] [place] [address] PCP - General Family Medicine 06/20/24 Onofre Fay MD [address] [place] [address] Referring Physician Obstetrics and Gynecology 03/14/19 Tyesha Helms MD PhD [address] [place] [address] Radiation Oncologist Radiation Oncology 07/20/19 Bárbara Aguila MD PhD [address] [facility] [address] [place], [place] [id number] Medical Oncologist/Ichthyologist Medical Oncology 03/03/20 Marie Kaiser MD PhD [address] [facility] [address] [place] [address] Surgeon Surgical Oncology 03/03/20
[2025-01-19 07:49] VITALS: BP 140/66; PULSE 70; TEMP 36.4; O2SAT 95
[2025-01-19] MEDS: LACTATED RINGERS 1,000 ML 150 ML IV CONT (07:58)
--- NOTE | 2025-01-19 08:04 | WPDANESEPPF ---
Anes - Initial Pre Proc Eval Procedure: Operation Date: 01/19/25 09:00 Proposed Procedures p Screening Colonoscopy - Henok Jiménez DO Date/Time: 01/19/25 08:04 Surgeon: Henok Jiménez DO Pre Op Diagnosis: Neoplasm screening Patient Data Age: 64 Gender: F Height: 1.63 m Weight: 78.9 kg Last Vital Signs Temp 36.4 C 01/19/25 07:49 Pulse 70 01/19/25 07:49 BP 140/66 01/19/25 07:49 Pulse Ox 95 01/19/25 07:49 O2 Del Method Room Air 01/19/25 07:49 Allergies Allergy/AdvReac Type Severity Reaction Status Date / Time Penicillins Allergy Unknown unknown Verified 01/19/25 07:47 chlorhexidine Allergy Rash Verified 01/19/25 07:47 Home Medications ?Medication ?Instructions ?Recorded ?Confirmed ?Type atenolol 50 mg-chlorthalidone 25 0.5 tablet PO DAILY #90 tabs 02/27/23 01/06/25 Rx mg tablet gemfibrozil 600 mg tablet 600 mg PO BID #180 tabs 12/14/23 01/06/25 Rx cholecalciferol (vitamin D3) 10 10 mcg PO DAILY 06/24/24 01/06/25 History mcg (400 unit) capsule (Vitamin D3) vitamin B complex 1 tablet PO DAILY 06/24/24 01/06/25 History aspirin 81 mg chewable tablet 81 mg PO DAILY #90 tabs 09/11/24 01/06/25 Rx lovastatin 10 mg tablet 10 mg PO QPM #90 tabs 09/11/24 01/06/25 Rx multivitamin (Daily Multi-Vitamin 1 tablet PO DAILY 10/02/24 01/06/25 History tablet) omega 0-qhi-oek-fish oil 1,000 mg 2 cap PO .noon 10/02/24 01/06/25 History (120 mg-180 mg) capsule (Fish Oil) citalopram 20 mg tablet See Rx Instructions .Route 01/06/25 Rx .COMPLEX #90 tabs Patient hx anesthesia problems: none Family hx anesthesia problems: none Results Review: All pre-operative results and documents have been reviewed as part of the pre-operative evaluation. [facility]LY [facility], [facility] Past Medical History Medical History (Updated 11/04/24 @ 08:14 by Loyda Andujar DO) Malignant neoplasm of breast Cigarette nicotine dependence, uncomplicated Essential (primary) hypertension Mixed hyperlipidemia Surgical History Surgical History (Updated 11/04/24 @ 08:14 by Loyda Andujar DO) S/P laparoscopic cholecystectomy Hx laparoscopic cholecystectomy 10/03/[address] Cooley Hx of breast reconstruction 03/17/2021 H/O mastectomy History of section Family History Family History Sibling Hypertension Mother Non-Hodgkin lymphoma Hypertension Father Cerebrovascular accident Acute myocardial infarction Grandparent Non-Hodgkin lymphoma Grandparent Cerebrovascular accident Heart problem Social History Social History (Updated 10/21/24 @ 14:04 by Bismark Freitas, [facility]) Years smoked: 10 Smoking status: Current every day smoker Tobacco type: cigarettes Alcohol intake: former Substance use: never Substance use type: does not use Do You Feel Safe in your Home?: Yes Lack of Transportation: No Lack of Food: Never True Current Housing: I Have Housing Concerned About Future Housing: No Difficulty Paying Gas/Electric Bills: No Difficulty Paying for Meds: No Currently Unemployed: No Education: Trade/Vocational Certificate Difficulty w/ Childcare or Family Care: No Living arrangements: with family Spiritual care concerns: No Anes - Eval Final PreProcedure Day of Procedure 01/19/25 08:04 Patient weight: overweight Heart: regular rate and rhythm Lungs: clear to auscultation Airway: Mallampati scale class II Neurological: alert and oriented Last oral intake: >/= 8 hours ASA classification: III Emergent: no Anesthetic plan: proceed Anesthesia type and monitoring: general GIVS and standard monitoring Results Review: All pre-operative results and documents have been reviewed as part of the pre-operative evaluation. Informed Consent: The patient's anesthetic plan and its attendant risks and benefits were discussed with the patient/family/POA. Questions were solicited and answers provided to the satisfaction of the patient/family/POA.
--- NOTE | 2025-01-19 08:43 | PM.IMHP ---
H&P: HPI History of Present Illness Date/Time: 01/19/25 08:43 Chief Complaint: screening for colorectal cancer Narrative: this is a 64-year-old woman who presents for colonoscopy. Her last colonoscopy was 11 years ago. She denies any hematochezia or melena. She denies family history of colon cancer. Review of Systems Review of Systems: All systems reviewed & are unremarkable except as noted in HPI and below Constitutional: Constitutional: Denies chills, Denies fever(s), Denies headache(s) and Denies weight loss Eyes: Eyes: Denies change in vision ENT: Denies dizziness, Denies headache(s), Denies neck mass and Denies throat swelling Cardiovascular: Cardiovascular: Denies chest pain, Denies lightheadedness and Denies dyspnea Respiratory: Respiratory: Denies cough, Denies dyspnea and Denies wheezing Gastrointestinal: Gastrointestinal: Denies abdominal pain, Denies change in bowel habits, Denies nausea and Denies vomiting Genitourinary: Genitourinary: Denies hematuria and Denies dysuria Musculoskeletal: Musculoskeletal: Reports as per HPI Integumentary/Breasts: Skin/Breast: Reports as per HPI Neurologic: Denies dizziness and Denies headache(s) Allergic/Immunologic: Allergic/Immunologic: Denies throat swelling and Denies wheezing [facility] Past Medical History Medical History (Updated 01/19/25 @ 08:44 by Henok Jiménez DO) Malignant neoplasm of breast Cigarette nicotine dependence, uncomplicated Essential (primary) hypertension Mixed hyperlipidemia Surgical History Surgical History (Updated 11/04/24 @ 08:14 by Loyda Andujar DO) S/P laparoscopic cholecystectomy Hx laparoscopic cholecystectomy 10/03/[address] Cooley Hx of breast reconstruction 03/17/2021 H/O mastectomy History of section Family History Family History Sibling Hypertension Mother Non-Hodgkin lymphoma Hypertension Father Cerebrovascular accident Acute myocardial infarction Grandparent Non-Hodgkin lymphoma Grandparent Cerebrovascular accident Heart problem Social History Social History (Updated 10/21/24 @ 14:04 by CARLO Castro) Years smoked: 10 Smoking status: Current every day smoker Tobacco type: cigarettes Alcohol intake: former Substance use: never Substance use type: does not use Do You Feel Safe in your Home?: Yes Lack of Transportation: No Lack of Food: Never True Current Housing: I Have Housing Concerned About Future Housing: No Difficulty Paying Gas/Electric Bills: No Difficulty Paying for Meds: No Currently Unemployed: No Education: Trade/Vocational Certificate Difficulty w/ Childcare or Family Care: No Living arrangements: with family Spiritual care concerns: No Meds Home Medications and Allergies Home Medications ?Medication ?Instructions ?Recorded ?Confirmed ?Type atenolol 50 mg-chlorthalidone 25 0.5 tablet PO DAILY #90 tabs 02/27/23 01/06/25 Rx mg tablet gemfibrozil 600 mg tablet 600 mg PO BID #180 tabs 12/14/23 01/06/25 Rx cholecalciferol (vitamin D3) 10 10 mcg PO DAILY 06/24/24 01/06/25 History mcg (400 unit) capsule (Vitamin D3) vitamin B complex 1 tablet PO DAILY 06/24/24 01/06/25 History aspirin 81 mg chewable tablet 81 mg PO DAILY #90 tabs 09/11/24 01/06/25 Rx lovastatin 10 mg tablet 10 mg PO QPM #90 tabs 09/11/24 01/06/25 Rx multivitamin (Daily Multi-Vitamin 1 tablet PO DAILY 10/02/24 01/06/25 History tablet) omega 9-pzl-[id number]-fish oil 1,000 mg 2 cap PO .noon 10/02/24 01/06/25 History (120 mg-180 mg) capsule (Fish Oil) citalopram 20 mg tablet See Rx Instructions .Route 01/06/25 Rx .COMPLEX #90 tabs Allergies Allergy/AdvReac Type Severity Reaction Status Date / Time Penicillins Allergy Unknown unknown Verified 01/19/25 07:47 chlorhexidine Allergy Rash Verified 01/19/25 07:47 Vital Signs Vital Signs - 24 hr 01/19/25 07:49 Temperature 97.6 F Pulse Rate 70 Blood Pressure 140/66 Pulse Oximetry 95 Oxygen Delivery Room Air Exam Const: General: no acute distress and alert Orientation/consciousness: patient oriented x3 HENMT: Head: normocephalic and atraumatic Ears: hearing grossly normal bilaterally Face/Nose/Sinus: Normal nares present Mouth: Yes Normal oral and palatal mucosa present Eyes: Periorbital: periorbital findings normal Sclera: sclerae normal EOM: EOMs intact bilaterally Neck: Neck: normal visual inspection, no lymphadenopathy and trachea midline Chest: Chest palpation & inspection: normal inspection of the chest Resp: Effort & Inspection: normal respiratory effort Auscultation: clear to auscultation bilaterally Cardio: Jugular venous distension: no JVD Rate: regular rate Rhythm: regular rhythm Heart sounds: S1 normal heart sound present and S2 normal heart sound present Peripheral pulses: Peripheral pulses 2+ throughout GI: Inspection: normal to inspection GI Palp: Yes Soft to palpation, No Tenderness to palpation present (GI), No Guarding due to palpation present (GI) and No Rebound tenderness present Percussion: Yes normal to percussion Auscultation: normal bowel sounds : General: Yes no CVA tenderness Back/Spine/Pelvis: Back: no CVA tenderness Neuro: General: patient oriented x3, no focal motor deficits and CN's II-XI intact bilaterally Cognition (Neuro): normal cognition Speech: normal speech Motor exam (neuro): 5/5 motor strength present throughout Extrem: General: capillary refill normal and no clubbing, cyanosis or edema Assessment and Plan Assessment and plan (1) Screening for colorectal cancer: Code(s): Z12.11 - Encounter for screening for malignant neoplasm of colon; Z12.12 - Encounter for screening for malignant neoplasm of rectum Status: Acute Assessment and Plan: I have recommended colonoscopy. I have discussed the procedure, risks, benefits, and alternatives. Questions were answered. Patient is agreeable to proceed.
--- NOTE | 2025-01-19 09:15 | S_PTH ---
PATIENT: Lakshmi Gooden LOC: [facility]#:[id number] AGE/SX: 64/F ROOM: RE01/19/[address]: Henok Jiménez DO : 1960 BED: DIS: 01/19/2025 SPEC #: [id number] RECD: 01/19/25 10:06 STATUS: GABRIELLE REQ #: [id number] ANN MARIE: 01/19/25 09:[address]: Henok Jiménez DEPT: [facility] Surgical RECD BY: Carlitos Jacques ENTERED: 01/19/25 10:06 SP TYPE: Surgical OTHR DR: Loyda Andujar DO Tissues: A - Colon Polypectomy Procedures: Hematoxylin and Eosin Stain Gross and Microscopic Level 4
[2025-01-19 09:19] VITALS: BP 106/47; PULSE 67; RESP 26; O2SAT 98
[2025-01-19 09:29] VITALS: BP 112/57; PULSE 63; RESP 20; O2SAT 97
[2025-01-19 09:39] VITALS: BP 146/66; PULSE 66; RESP 20; O2SAT 98
== END 2025-01-19 09:45 | disposition home or self-care (01) ==
PROVIDERS: PCP Family Medicine; Visit Provider Surgery
PROC: 0DJD8ZZ Inspection of Lower Intestinal Tract, Via Natural or Artificial Opening Endoscopic (ICD-10-PCS; CPT 45378; principal; 2025-01-19 09:00)
DX: Z12.11 Encounter for screening for malignant neoplasm of colon (principal); K63.5 Polyp of colon; F17.210 Nicotine dependence, cigarettes, uncomplicated
CPT/HCPCS: 45380; 88305; J2003; J2704; J7120